=== PATIENT | male | born 1950 | race Caucasian/White ===

== ENCOUNTER 2018-08-22 15:34 | Inpatient (IN) | payer MEDICARE ==
[~2018-08-22] VITALS: Ht 177.8 cm; Wt 70.9 kg
[2018-08-22] MEDS ORDERED: IPRATRPIUM/ALBUTEROL 0.5/2.5MG 3 ML NEBU. NEB ONE (16:15)
--- NOTE | 2018-08-22 16:18 | PHYS DOC ---
Past Medical History Additional Past Medical Histor: prior history of alcoholism, no other known medical history. Smoking: Cigarettes, 1 Pack Per Day, Quit Less Than 1 Year Adult General Chief Complaint Chief Complaint: SHORTNESS OF BREATH HPI HPI Patient is a 68-year-old male who presents to the emergency department for evaluation. He states he quit smoking about 3-1/2 months ago, and since that time has had progressive shortness of breath, along with a productive cough, occasionally productive of bloody sputum. He reports no chest pain, pleuritic pain, fevers or chills. He has not had any nausea, or vomiting. There are no alleviating, or exacerbating factors to the patient's symptoms otherwise. Review of Systems Review of Systems Constitutional: Denies fever or chills [] Eyes: Denies change in visual acuity, redness, or eye pain [] HENT: Denies nasal congestion or sore throat [] Respiratory: Reports cough and shortness of breath [] Cardiovascular:The patient denies any chest pain, palpitations, or orthopnea [] GI: Denies abdominal pain, nausea, vomiting, bloody stools or diarrhea [] : Denies dysuria or hematuria [] Musculoskeletal: Denies back pain or joint pain [] Integument: Denies rash or skin lesions [] Neurologic: Denies headache, focal weakness or sensory changes [] Endocrine: Denies polyuria or polydipsia [] All other systems were reviewed and found to be within normal limits, except as documented in this note. Current Medications Current Medications Current Medications Medications (Trade) Dose Ordered Sig/Dustin Start Time Stop Time Status Last Admin Dose Admin Albuterol/ Ipratropium (Duoneb) 3 ml 1X ONCE 08/22/18 16:15 08/22/18 16:21 DC 08/22/18 16:18 3 ML Info (CONTRAST GIVEN -- Rx MONITORING) 1 each PRN DAILY PRN 08/22/18 17:00 08/24/18 16:59 Iohexol (Omnipaque 350 Mg/ml) 75 ml 1X ONCE 08/22/18 16:45 08/22/18 16:48 DC 08/22/18 16:59 75 ML Piperacillin Sod/ Tazobactam Sod (Zosyn Per Pharmacy) 1 each PRN DAILY PRN 08/22/18 18:00 UNV Sodium Chloride 1,000 ml @ 1,000 mls/hr Q1H 08/22/18 16:30 08/22/18 17:29 DC 08/22/18 16:43 1,000 MLS/HR Vancomycin HCl (Vanco Per Pharmacy) 1 each PRN DAILY PRN 08/22/18 18:00 UNV Allergies Allergies Allergies Coded Allergies Type Severity Reaction Last Updated Verified No Known Drug Allergies 08/22/18 No Physical Exam Physical Exam PHYSICAL EXAM: CONSTITUTIONAL: Well developed, well nourished HEAD: normocephalic, atraumatic EENT: PERRL, EOMI. Conjunctivae normal color, sclerae non-icteric; moist mucous membranes. NECK: Supple, non-tender; no meningismus. LUNGS: there are diffuse coarse except for wheezes and rhonchi in all lung roldan, breathing even and unlabored. Normal air movement. HEART: Mild tachycardia, regular, no murmur CHEST: No deformity; non-tender ABDOMEN: The abdomen is soft, and non-tender, no masses or bruits. EXTREM: Normal ROM; no deformity, no calf tenderness. Normal pulses palpable in all extremities. There is no pedal edema. SKIN: No rash; no diaphoresis NEURO: Alert; normal speech and cognition; CN's grossly intact; strength grossly intact without focal deficit. BACK: No CVA TTP. Current Patient Data Vital Signs Vital Signs Date Time Temp Pulse Resp B/P (MAP) Pulse Ox O2 Delivery O2 Flow Rate FiO2 08/22/18 16:20 93 Room Air 08/22/18 16:00 99.6 109 18 151/75 (100) 99.6 Lab Values Laboratory Tests Test 08/22/18 16:05 08/22/18 16:45 White Blood Count 14.1 x10^3/uL (4.0-11.0) H Red Blood Count 4.32 x10^6/uL (4.30-5.70) Hemoglobin 11.0 g/dL (13.0-17.5) L Hematocrit 34.4 % (39.0-53.0) L Mean Corpuscular Volume 80 fL (79-100) Mean Corpuscular Hemoglobin 26 pg (25-35) Mean Corpuscular Hemoglobin Concent 32 g/dL (31-37) Red Cell Distribution Width 15.8 % (11.5-14.5) H Platelet Count 409 x10^3/uL (140-400) H Neutrophils (%) (Auto) 83 % (31-73) H Lymphocytes (%) (Auto) 9 % (24-48) L Monocytes (%) (Auto) 7 % (0-9) Eosinophils (%) (Auto) 1 % (0-3) Basophils (%) (Auto) 1 % (0-3) Neutrophils # (Auto) 11.7 x10^3uL (1.8-7.7) H Lymphocytes # (Auto) 1.3 x10^3/uL (1.0-4.8) Monocytes # (Auto) 1.0 x10^3/uL (0.0-1.1) Eosinophils # (Auto) 0.1 x10^3/uL (0.0-0.7) Basophils # (Auto) 0.1 x10^3/uL (0.0-0.2) Sodium Level 136 mmol/L (136-145) Potassium Level 3.6 mmol/L (3.5-5.1) Chloride Level 99 mmol/L (98-107) Carbon Dioxide Level 30 mmol/L (21-32) Anion Gap 7 (6-14) Blood Urea Nitrogen 11 mg/dL (8-26) Creatinine 1.1 mg/dL (0.7-1.3) Estimated GFR (Cockcroft-Gault) 66.6 BUN/Creatinine Ratio 10 (6-20) Glucose Level 168 mg/dL (70-99) H Lactic Acid Level 2.6 mmol/L (0.4-2.0) H Calcium Level 10.5 mg/dL (8.5-10.1) H Total Bilirubin 0.3 mg/dL (0.2-1.0) Aspartate Amino Transferase (AST) 17 U/L (15-37) Alanine Aminotransferase (ALT) 19 U/L (16-63) Alkaline Phosphatase 97 U/L (46-116) Creatine Kinase 12 U/L (39-308) L Creatine Kinase MB (Mass) < 0.5 ng/mL (0.0-3.6) Creatine Kinase MB Relative Index % (0-4) Troponin I Quantitative < 0.017 ng/mL (0.000-0.055) RR-Mru-Z-Type Natriuretic Peptide 153 pg/mL (0-124) H Total Protein 8.9 g/dL (6.4-8.2) H Albumin 2.4 g/dL (3.4-5.0) L Albumin/Globulin Ratio 0.4 (1.0-1.7) L Influenza Type A Antigen Negative (NEGATIVE) Influenza Type B Antigen Negative (NEGATIVE) Laboratory Tests 08/22/18 16:05 Laboratory Tests 08/22/18 16:05 EKG EKG [Sinus tachycardia at a rate of 103 beats for minute, normal axis, normal intervals. There are no acute ischemic ST/T changes.] Radiology/Procedures Radiology/Procedures [PROCEDURE: CHEST PA & LATERAL Chest, PA and Lateral: Technique: PA and lateral views of the chest were obtained. History: Cough, shortness of breath. Comparison: None. Findings/ impression: The heart size grossly appears unremarkable. Air fluid level identified in the right upper lobe of the lung could be a cavity containing fluid or lung abscess or effusion identified along the fissure/pleura. Airspace opacities identified in the right upper lobe of the lung with patchy right lung base airspace opacities. Cross-sectional imaging with CT is recommended.] PROCEDURE: CT ANGIOGRAPHY CHEST CT angiogram of the chest with contrast: Reason for examination: Short of breath, hemoptysis, tachycardia. Helical images were obtained through the chest with intravenous administration of 75 cc Omnipaque 350 using PE protocol. 3-D MIPS reconstruction was performed in sagittal and coronal planes. Exposure: One or more of the following individualized dose reduction techniques were utilized for this examination: 1. Automated exposure control 2. Adjustment of the mA and/or kV according to patient size 3. Use of iterative reconstruction technique. No abnormality seen at the thyroid gland. The trachea and left mainstem bronchi show no abnormalities. There is some fluid or thickening in the distal right mainstem bronchus. No abnormality seen at the esophagus. The thoracic aorta shows no aneurysmal dilatation or dissection. The heart size is normal with no pericardial effusion. There are a few small nonspecific appearing lymph nodes in the mediastinum. The right lung field shows presence of diffuse patchy peribronchial infiltrates throughout the right upper middle and lower lobe. There is however also a consolidated infiltrate with central cavitation in the right upper lobe with some encroachment on and narrowing of the vascular structures in the right upper lobe in this area of consolidation. Cavitary mass cannot be excluded. This area with the central cavitation appears to measure at least 9 cm craniocaudally 10 cm transaxially and 8.3 cm in AP dimension. The left lung field is free of infiltrates or pleural effusions. No abnormalities are seen at the visualized portion of the liver, spleen or right adrenal gland. There is a hypodense rim calcified nodule measuring 3.2 cm in the left adrenal gland. There is a moderate anterior wedge compression deformity at the T12 vertebral body. IMPRESSION: Diffuse patchy peribronchial infiltrates throughout the right lung field with a large area of dense consolidation infiltrate with central cavitation in the right upper lobe measuring at least 9 x 10 x 8.3 cm in greatest cranial caudal, transaxial and AP dimensions respectively. This could be infectious cavitation however malignancy cannot be excluded. No pulmonary embolus however the area of dense consolidated infiltrate in the right upper lobe does encroach on and narrow the vascular structures in the right upper lobe. A few small nonspecific lymph nodes in the mediastinum. 3.2 cm rim calcified nodule in the left adrenal gland. Moderate anterior wedge compression deformity at the T12 vertebral body. Course & Med Decision Making Course & Med Decision Making Pertinent Labs and Imaging studies reviewed. (See chart for details) [] Dragon Disclaimer Dragon Disclaimer This electronic medical record was generated, in whole or in part, using a voice recognition dictation system. Departure Departure Impression: Primary Impression: Pneumonia Additional Impression: Cavitary lesion of lung Disposition: ADMITTED INPATIENT Admitting Physician: Marva Pineda Condition: STABLE Referrals: UNKNOWN PCP NAME (PCP) Problem Qualifiers AKHIL VEGA MD Aug 22, 2018 16:18
[2018-08-22 16:19] LABS: BASO # 0.1 x10^3/uL (0.0-0.2); BASO % 1 % (0-3); EOS # 0.1 x10^3/uL (0.0-0.7); EOS % 1 % (0-3); HEMATOCRIT 34.4 % (39.0-53.0); LYMPH # 1.3 x10^3/uL (1.0-4.8); LYMPH % 9 % (24-48); MEAN CORPUSCULAR HEMOGLOBIN 26 pg (25-35); MEAN CORPUSCULAR HGB CONC 32 g/dL (31-37); MEAN CORPUSCULAR VOLUME 80 fL (79-100); MONO % 7 % (0-9); NEUT # 11.7 x10^3uL (1.8-7.7); NEUT % 83 % (31-73); PLATELET COUNT 409 x10^3/uL (140-400); RED BLOOD COUNT 4.32 x10^6/uL (4.30-5.70); RED CELL DISTRIBUTION WIDTH 15.8 % (11.5-14.5); WHITE BLOOD COUNT 14.1 x10^3/uL (4.0-11.0)
[2018-08-22] MEDS ORDERED: IV NORMAL SALINE 1000ML BAG 1,000 ML IV SCH (16:30)
[2018-08-22 16:34] LABS: CALCIUM 10.5 mg/dL (8.5-10.1); CREATININE 1.1 mg/dL (0.7-1.3); GFR 66.6; POTASSIUM 3.6 mmol/L (3.5-5.1)
[2018-08-22 16:40] LABS: ALBUMIN 2.4 g/dL (3.4-5.0); ALBUMIN/GLOBULIN RATIO 0.4 (1.0-1.7); TOTAL BILIRUBIN 0.3 mg/dL (0.2-1.0); TOTAL PROTEIN 8.9 g/dL (6.4-8.2)
[2018-08-22] MEDS ORDERED: IOHEXOL 350 MG/ML 100 ML VIAL. IV ONE (16:45)
--- NOTE | 2018-08-22 16:49 | RAD ---
Chest, PA and Lateral: Technique: PA and lateral views of the chest were obtained. History: Cough, shortness of breath. Comparison: None. Findings/ impression: The heart size grossly appears unremarkable. Air fluid level identified in the right upper lobe of the lung could be a cavity containing fluid or lung abscess or effusion identified along the fissure/pleura. Airspace opacities identified in the right upper lobe of the lung with patchy right lung base airspace opacities. Cross-sectional imaging with CT is recommended. Electronically signed by: Mike Isaac MD (08/22/2018 4:47 PM) [facility]
[2018-08-22 16:55] LABS: CREATINE KINASE 12 U/L (39-308)
[2018-08-22] MEDS ORDERED: ACETAMINOPHEN 325 MG TABLET. PO PRN (17:00)
[2018-08-22] MEDS ORDERED: CONTRAST GIVEN. MC PRN (17:00)
[2018-08-22 17:19] LABS: INFLUENZA A PATIENT NEGATIVE (NEGATIVE); INFLUENZA B PATIENT NEGATIVE (NEGATIVE)
--- NOTE | 2018-08-22 17:51 | RAD ---
CT angiogram of the chest with contrast: Reason for examination: Short of breath, hemoptysis, tachycardia. Helical images were obtained through the chest with intravenous administration of 75 cc Omnipaque 350 using PE protocol. 3-D MIPS reconstruction was performed in sagittal and coronal planes. Exposure: One or more of the following individualized dose reduction techniques were utilized for this examination: 1. Automated exposure control 2. Adjustment of the mA and/or kV according to patient size 3. Use of iterative reconstruction technique. No abnormality seen at the thyroid gland. The trachea and left mainstem bronchi show no abnormalities. There is some fluid or thickening in the distal right mainstem bronchus. No abnormality seen at the esophagus. The thoracic aorta shows no aneurysmal dilatation or dissection. The heart size is normal with no pericardial effusion. There are a few small nonspecific appearing lymph nodes in the mediastinum. The right lung field shows presence of diffuse patchy peribronchial infiltrates throughout the right upper middle and lower lobe. There is however also a consolidated infiltrate with central cavitation in the right upper lobe with some encroachment on and narrowing of the vascular structures in the right upper lobe in this area of consolidation. Cavitary mass cannot be excluded. This area with the central cavitation appears to measure at least 9 cm craniocaudally 10 cm transaxially and 8.3 cm in AP dimension. The left lung field is free of infiltrates or pleural effusions. No abnormalities are seen at the visualized portion of the liver, spleen or right adrenal gland. There is a hypodense rim calcified nodule measuring 3.2 cm in the left adrenal gland. There is a moderate anterior wedge compression deformity at the T12 vertebral body. IMPRESSION: Diffuse patchy peribronchial infiltrates throughout the right lung field with a large area of dense consolidation infiltrate with central cavitation in the right upper lobe measuring at least 9 x 10 x 8.3 cm in greatest cranial caudal, transaxial and AP dimensions respectively. This could be infectious cavitation however malignancy cannot be excluded. No pulmonary embolus however the area of dense consolidated infiltrate in the right upper lobe does encroach on and narrow the vascular structures in the right upper lobe. A few small nonspecific lymph nodes in the mediastinum. 3.2 cm rim calcified nodule in the left adrenal gland. Moderate anterior wedge compression deformity at the T12 vertebral body. Electronically signed by: Razia Solis MD (08/22/2018 5:48 PM) [place] [id number]
[2018-08-22] MEDS ORDERED: PIP/TAZO PER PHARMACY MC PRN (18:00)
[2018-08-22] MEDS: PIPERACILLIN/TAZOBACTAM 3.375 GM in IV NORMAL SALINE 50ML 50 ML IV SCH ×2 (18:11→23:25)
[2018-08-22] MEDS ORDERED: VANCOMYCIN 1.75 GM in IV NORMAL SALINE 500ML BAG 500 ML IV ONE (18:30)
[2018-08-22] MEDS ORDERED: ONDANSETRON ODT 4 MG TAB.RAPDIS. PO PRN (18:45)
[2018-08-22] MEDS ORDERED: ONDANSETRON PF 4 MG/2 ML VIAL. IV PRN (18:45)
[2018-08-22] MEDS ORDERED: ACETAMINOPHEN/CODEINE 300/30MG TABLET. PO PRN (18:45)
[2018-08-22] MEDS ORDERED: TEMAZEPAM 7.5 MG CAPSULE PO PRN (18:45)
[2018-08-22] MEDS ORDERED: guaiFENesin DM 200MG/20MG 10 ML SYRUP PO PRN (18:45)
[2018-08-22] MEDS ORDERED: IV NORMAL SALINE 1000ML BAG 1,000 ML IV ONE ×2 (19:00→21:00)
[2018-08-22] MEDS ORDERED: NICOTINE 21MG PATCH. TD PRN (19:15)
[2018-08-22] MEDS ORDERED: ACETAMINOPHEN 325 MG TABLET. PO ONE (19:30)
[2018-08-22] MEDS: VANCOMYCIN PER PHARMACY MC PRN (20:49)
--- NOTE | 2018-08-22 20:54 | NUR ---
Pharmacy Vancomycin Dosing Note S: Consulted to monitor and dose vancomycin started 08/22/18. O: EMILIA CHAVIS is a 68 year old M with CAP, CAVITARY PNEUMONIA. Other Antibiotics: ZOSYN LABS: Last BUN: 11 Last Creatinine: 1.1 Creatinine Clearance: 66 mL/min Last WBC: 14.1 Tmax (past 24 hours): 99.6 Vancomycin Dosing: Dosing Weight: Actual Target Trough: 15-20 A: Based on: VANCO dosing guidelines P: 1. Begin Vancomycin 1750mg LOAD dose, then 1250 mg IV q12h 2. Follow up Trough level on 08/24/18 at 0730 3. Pharmacy will continue to monitor, follow and adjust therapy as needed. ZHANG CRANE [facility], 08/22/18 [id number]
[2018-08-22] MEDS: IPRATRPIUM/ALBUTEROL 0.5/2.5MG 3 ML NEBU. NEB SCH ×2 (21:23→23:56)
[2018-08-22 23:00] VITALS: BP 124/59
[2018-08-23 03:00] VITALS: BP 136/55
[2018-08-23] MEDS: PIPERACILLIN/TAZOBACTAM 3.375 GM in IV NORMAL SALINE 50ML 50 ML IV SCH ×2 (05:50→14:19)
[2018-08-23 07:00] VITALS: BP 112/54
--- NOTE | 2018-08-23 07:06 | EKG ---
[facility] [address] [place] [id number] Test Date: 2018-08-22 Test Time: 16:05:52 Pat Name: EMILIA CHAVIS Department: Room: 516 1 Gender: M [employer]: : 1950 Requested By: AKHIL VEGA Order Number: [id number] Reading MD: Stone Ryan MD Measurements Intervals [place] Rate: 103 P: 40 MI: 150 QRS: -42 QRSD: 78 T: 30 QT: 332 QTc: 436 Interpretive Statements SINUS TACHYCARDIA NON-SPECIFIC ST/T CHANGES Electronically Signed On 08-26-2018 15:52:37 CDT by Stone Ryan MD
[2018-08-23] MEDS: IPRATRPIUM/ALBUTEROL 0.5/2.5MG 3 ML NEBU. NEB SCH ×4 (07:24→23:38)
--- NOTE | 2018-08-23 07:42 | PDOC1 ---
History and Physical Date of Admission Date of Admission DATE: 08/23/18 TIME: 07:39 Identification/Chief Complaint Chief Complaint Shortness of breath Source Source: Chart review, Patient History of Present Illness History of Present Illness 68-year-old male who presents to the emergency department for evaluation. He states he quit smoking about 3-1/2 months ago, and since that time has had progressive shortness of breath, along with a productive cough, occasionally productive of bloody sputum. He reports no chest pain, pleuritic pain, fevers or chills. He has not had any nausea, or vomiting. There are no alleviating, or exacerbating factors to the patient's symptoms otherwise. He has lost about 50-60 pounds in the last 3 months or so, he says and now c/o worsening of his hemoptysis, so he decided to come to the ED. He denies any headache, visual symptoms, chest pain, abdominal pain, urinary symptoms. He has no recent sick contacts and has no history of incarceration or TB. He was noted in the ED with Hb 9, WBC of 14, elevated procalcitonin and CT chest with cavitary pneumonia in the right upper lobe and extensive parenchymal infiltrate in the right lower lobe. Past Medical History Cardiovascular: No pertinent hx Pulmonary: No pertinent hx GI: No pertinent hx Heme/Onc: No pertinent hx Hepatobiliary: No pertinent hx Psych: No pertinent hx Rheumatologic: No pertinent hx Infectious disease: No pertinent hx ENT: No pertinent hx Renal/: No pertinent hx Endocrine: No pertinent hx Dermatology: No pertinent hx Past Surgical History Past Surgical History: No pertinent history Family History Family History: Heart Disease Social History Smoke: Quit (Positive for smoking until 3 months ago. He had a 51-year history of smoking. He used to be a significant drinking problem, which he had quit 1 year ago. No drug use. The patient has not been out of country other than when he was very young in the , he had gone to [place]. The patient has never been homeless, very short period in group home with DUI.) ALCOHOL: none Drugs: None Current Problem List Problem List Problems Medical Problems: (1) Cavitary lesion of lung Status: Acute (2) Pneumonia Status: Acute Current Medications Current Medications Current Medications Albuterol/ Ipratropium (Duoneb) 3 ml 1X ONCE NEB Last administered on at 16:18; Start 08/22/18 at 16:15; Stop 08/22/18 at 16:21; Status DC Sodium Chloride 1,000 ml @ 1,000 mls/hr Q1H IV Last administered on 08/22/18at 16:43; Start 08/22/18 at 16:30; Stop 08/22/18 at 17:29; Status DC Iohexol (Omnipaque 350 Mg/ml) 75 ml 1X ONCE IV Last administered on 08/22/18at 16:59; Start 08/22/18 at 16:45; Stop 08/22/18 at 16:48; Status DC Info (CONTRAST GIVEN -- Rx MONITORING) 1 each PRN DAILY PRN MC SEE COMMENTS; Start 08/22/18 at 17:00; Stop 08/24/18 at 16:59 Piperacillin Sod/ Tazobactam Sod (Zosyn Per Pharmacy) 1 each PRN DAILY PRN MC SEE COMMENTS; Start 08/22/18 at 18:00 Vancomycin HCl (Vanco Per Pharmacy) 1 each PRN DAILY PRN MC SEE COMMENTS Last administered on 08/22/18at 20:49; Start 08/22/18 at 18:00 Albuterol/ Ipratropium (Duoneb) 3 ml Q6HRS NEB Last administered on 08/23/18at 07:24; Start 08/22/18 at 18:00 Piperacillin Sod/ Tazobactam Sod 3.375 gm/Sodium Chloride 50 ml @ 100 mls/hr Q6HRS IV Last administered on 08/23/18at 05:50; Start 08/22/18 at 18:00 Vancomycin HCl 1.75 gm/Sodium Chloride 500 ml @ 250 mls/hr 1X ONCE IV Last administered on 08/22/18at 19:46; Start 08/22/18 at 18:30; Stop 08/22/18 at 20:29 ; Status DC Acetaminophen (Tylenol) 500 mg PRN Q6HRS PRN PO MILD PAIN / TEMP; Start at 18:45 Acetaminophen/ Codeine Phosphate (Tylenol #3) 1 tab PRN Q6HRS PRN PO MODERATE TO SEVERE PAIN; Start 08/22/18 at 18:45 Ondansetron HCl (Zofran) 4 mg PRN Q6HRS PRN IV NAUSEA/VOMITING; Start 08/22/18 at 18:45 Ondansetron HCl (Zofran Odt) 4 mg PRN Q6HRS PRN PO NAUSEA/VOMITING; Start 08/22 at 18:45 Temazepam (Restoril) 7.5 mg PRN QHS PRN PO INSOMNIA; Start 08/22/18 at 18:45 Sodium Chloride 1,000 ml @ 100 mls/hr 1X ONCE IV Last administered on at 22:38; Start 08/22/18 at 19:00; Stop 08/23/18 at 04:59; Status DC Guaifenesin (Robitussin Dm) 10 ml PRN Q6HRS PRN PO COUGH; Start 08/22/18 at 18: 45 Acetaminophen (Tylenol) 650 mg PRN Q6HRS PRN PO MILD PAIN / TEMP; Start at 17:00; Status UNV Nicotine (Nicoderm Cq 21mg) 1 patch PRN DAILY PRN TD SMOKING CESSATION; Start 08/22/18 at 19:15 Acetaminophen (Tylenol) 650 mg 1X ONCE PO Last administered on 08/22/18at 17:00 ; Start 08/22/18 at 19:30; Stop 08/22/18 at 19:31; Status DC Sodium Chloride 1,000 ml @ 1,000 mls/hr 1X ONCE IV Last administered on at 22:39; Start 08/22/18 at 21:00; Stop 08/22/18 at 21:59; Status DC Vancomycin HCl 1.25 gm/Sodium Chloride 250 ml @ 167 mls/hr Q12H IV ; Start at 08:00 Vancomycin HCl (Vancomycin Trough Level) 1 each 1X ONCE MC ; Start 08/24/18 at 07:30; Stop 08/24/18 at 07:31 Allergies Allergies: Coded Allergies: No Known Drug Allergies (Unverified , 08/22/18) ROS General: YES: Fatigue, Malaise; No: Chills, Night Sweats, Appetite, Other PSYCHOLOGICAL ROS: No: Anxiety, Behavioral Disorder, Concentration difficultie , Decreased libido, Depression, Disorientation, Hallucinations, Hostility, Irritablity, Memory difficulties, Mood Swings, Obsessive thoughts, Physical abuse, Sexual abuse, Sleep disturbances, Suicidal ideation, Other Eyes: No Blurry vision, No Decreased vision, No Double vision, No Dry eyes, No Excessive tearing, No Eye Pain, No Itchy Eyes, No Loss of vision, No Photophobia , No Scotomata, No Uses contacts, No Uses glasses, No Other HEENT: No: Heacaches, Visual Changes, Hearing change, Nasal congestion, Nasal discharge, Oral lesions, Sinus pain, Sore Throat, Epistaxis, Sneezing, Snoring, Tinnitus, Vertigo, Vocal changes, Other ALLERGY AND IMMUNOLOGY: No: Hives, Insect Bite Sensitivity, Itchy/Watery Eyes, Nasal Congestion, Post Nasal Drip, Seasonal Allergies, Other Hematological and Lymphatic: No: Bleeding Problems, Blood Clots, Blood Transfusions, Brusing, Night Sweats, Pallor, Swollen Lymph Nodes, Other ENDOCRINE: No: Breast Changes, Galactorrhea, Hair Pattern Changes, Hot Flashes , Malaise/lethargy, Mood Swings, Palpitations, Polydipsia/polyuria, Skin Changes , Temperature Intolerance, Unexpected Weight Changes, Other Breast: No New/Changing Breast Lumps, No Nipple changes, No Nipple discharge, No Other Respiratory: YES: Cough, Hemoptysis, Shortness of breath, SOB with excertion, Sputum Changes, Tachypnea, Wheezing; No: Orthopnea, Pleuritic Pain, Stridor, Other Cardiovascular: No Chest Pain, No Palpitations, No Orthopnea, No Paroxysmal Noc. Dyspnea, No Edema, No Lt Headedness, No Other Gastrointestinal: No Nausea, No Vomiting, No Abdominal Pain, No Diarrhea, No Constipation, No Melena, No Hematochezia, No Other Genitourinary: No Dysuria, No Frequency, No Incontinence, No Hematuria, No Retention, No Discharge, No Urgency, No Pain, No Flank Pain, No Other, No , No , No , No , No , No , No Musculoskeletal: No Gait Disturbance, No Joint Pain, No Joint Stiffness, No Joint Swelling, No Muscle Pain, No Muscular Weakness, No Pain In:, No Swelling In:, No Other Neurological: No Behavorial Changes, No Bowel/Bladder ControlChng, No Confusion , No Dizziness, No Gait Disturbance, No Headaches, No Impaired Coord/balance, No Memory Loss, No Numbness/Tingling, No Seizures, No Speech Problems, No Tremors, No Visual Changes, No Weakness, No Other Skin: No Dry Skin, No Eczema, No Hair Changes, No Lumps, No Mole Changes, No Mottling, No Nail Changes, No Pruritus, No Rash, No Skin Lesion Changes, No Other, No Acne Physical Exam General: Alert, Oriented X3, Cooperative, No acute distress HEENT: Atraumatic, PERRLA, EOMI, Mucous membr. moist/pink Lungs: Other (Bilateral scattered wheezing, rhonchi on right) Abdomen: Normal bowel sounds, Soft, No tenderness, No hepatosplenomegaly, No masses Male Genitals Exam: normal genitalia Rectal Exam: not examined Extremities: No clubbing, No cyanosis, No edema, Normal pulses, No tenderness/ swelling Skin: No rashes, No breakdown, No significant lesion Neuro: Normal gait, Normal speech, Strength at 5/5 X4 ext, Normal tone, Sensation intact, Cranial nerves 3-12 NL, Reflexes 2+ Psych/Mental Status: Mental status NL, Mood NL Vitals Vitals Vital Signs Date Time Temp Pulse Resp B/P (MAP) Pulse Ox O2 Delivery O2 Flow Rate FiO2 08/23/18 07:26 94 Room Air 08/23/18 03:00 98.4 68 18 136/55 (82) 98.4 Labs Labs Laboratory Tests Test 08/22/18 16:05 08/22/18 16:45 White Blood Count 14.1 x10^3/uL (4.0-11.0) Red Blood Count 4.32 x10^6/uL (4.30-5.70) Hemoglobin 11.0 g/dL (13.0-17.5) Hematocrit 34.4 % (39.0-53.0) Mean Corpuscular Volume 80 fL (79-100) Mean Corpuscular Hemoglobin 26 pg (25-35) Mean Corpuscular Hemoglobin Concent 32 g/dL (31-37) Red Cell Distribution Width 15.8 % (11.5-14.5) Platelet Count 409 x10^3/uL (140-400) Neutrophils (%) (Auto) 83 % (31-73) Lymphocytes (%) (Auto) 9 % (24-48) Monocytes (%) (Auto) 7 % (0-9) Eosinophils (%) (Auto) 1 % (0-3) Basophils (%) (Auto) 1 % (0-3) Neutrophils # (Auto) 11.7 x10^3uL (1.8-7.7) Lymphocytes # (Auto) 1.3 x10^3/uL (1.0-4.8) Monocytes # (Auto) 1.0 x10^3/uL (0.0-1.1) Eosinophils # (Auto) 0.1 x10^3/uL (0.0-0.7) Basophils # (Auto) 0.1 x10^3/uL (0.0-0.2) Sodium Level 136 mmol/L (136-145) Potassium Level 3.6 mmol/L (3.5-5.1) Chloride Level 99 mmol/L (98-107) Carbon Dioxide Level 30 mmol/L (21-32) Anion Gap 7 (6-14) Blood Urea Nitrogen 11 mg/dL (8-26) Creatinine 1.1 mg/dL (0.7-1.3) Estimated GFR (Cockcroft-Gault) 66.6 BUN/Creatinine Ratio 10 (6-20) Glucose Level 168 mg/dL (70-99) Lactic Acid Level 2.6 mmol/L (0.4-2.0) Calcium Level 10.5 mg/dL (8.5-10.1) Total Bilirubin 0.3 mg/dL (0.2-1.0) Aspartate Amino Transf (AST/SGOT) 17 U/L (15-37) Alanine Aminotransferase (ALT/SGPT) 19 U/L (16-63) Alkaline Phosphatase 97 U/L (46-116) Creatine Kinase 12 U/L (39-308) Creatine Kinase MB (Mass) < 0.5 ng/mL (0.0-3.6) Creatine Kinase MB Relative Index % (0-4) Troponin I Quantitative < 0.017 ng/mL (0.000-0.055) YF-Muh-R-Type Natriuretic Peptide 153 pg/mL (0-124) Total Protein 8.9 g/dL (6.4-8.2) Albumin 2.4 g/dL (3.4-5.0) Albumin/Globulin Ratio 0.4 (1.0-1.7) Influenza Type A Antigen Negative (NEGATIVE) Influenza Type B Antigen Negative (NEGATIVE) Laboratory Tests Test 08/22/18 16:05 08/22/18 16:45 White Blood Count 14.1 x10^3/uL (4.0-11.0) Red Blood Count 4.32 x10^6/uL (4.30-5.70) Hemoglobin 11.0 g/dL (13.0-17.5) Hematocrit 34.4 % (39.0-53.0) Mean Corpuscular Volume 80 fL (79-100) Mean Corpuscular Hemoglobin 26 pg (25-35) Mean Corpuscular Hemoglobin Concent 32 g/dL (31-37) Red Cell Distribution Width 15.8 % (11.5-14.5) Platelet Count 409 x10^3/uL (140-400) Neutrophils (%) (Auto) 83 % (31-73) Lymphocytes (%) (Auto) 9 % (24-48) Monocytes (%) (Auto) 7 % (0-9) Eosinophils (%) (Auto) 1 % (0-3) Basophils (%) (Auto) 1 % (0-3) Neutrophils # (Auto) 11.7 x10^3uL (1.8-7.7) Lymphocytes # (Auto) 1.3 x10^3/uL (1.0-4.8) Monocytes # (Auto) 1.0 x10^3/uL (0.0-1.1) Eosinophils # (Auto) 0.1 x10^3/uL (0.0-0.7) Basophils # (Auto) 0.1 x10^3/uL (0.0-0.2) Sodium Level 136 mmol/L (136-145) Potassium Level 3.6 mmol/L (3.5-5.1) Chloride Level 99 mmol/L (98-107) Carbon Dioxide Level 30 mmol/L (21-32) Anion Gap 7 (6-14) Blood Urea Nitrogen 11 mg/dL (8-26) Creatinine 1.1 mg/dL (0.7-1.3) Estimated GFR (Cockcroft-Gault) 66.6 BUN/Creatinine Ratio 10 (6-20) Glucose Level 168 mg/dL (70-99) Lactic Acid Level 2.6 mmol/L (0.4-2.0) Calcium Level 10.5 mg/dL (8.5-10.1) Total Bilirubin 0.3 mg/dL (0.2-1.0) Aspartate Amino Transf (AST/SGOT) 17 U/L (15-37) Alanine Aminotransferase (ALT/SGPT) 19 U/L (16-63) Alkaline Phosphatase 97 U/L (46-116) Creatine Kinase 12 U/L (39-308) Creatine Kinase MB (Mass) < 0.5 ng/mL (0.0-3.6) Creatine Kinase MB Relative Index % (0-4) Troponin I Quantitative < 0.017 ng/mL (0.000-0.055) GK-Bic-I-Type Natriuretic Peptide 153 pg/mL (0-124) Total Protein 8.9 g/dL (6.4-8.2) Albumin 2.4 g/dL (3.4-5.0) Albumin/Globulin Ratio 0.4 (1.0-1.7) Influenza Type A Antigen Negative (NEGATIVE) Influenza Type B Antigen Negative (NEGATIVE) Images Images CTPA - Diffuse patchy peribronchial infiltrates throughout the right lung field with a large area of dense consolidation infiltrate with central cavitation in the right upper lobe measuring at least 9 x 10 x 8.3 cm in greatest cranial caudal, transaxial and AP dimensions respectively. This could be infectious cavitation however malignancy cannot be excluded. No pulmonary embolus however the area of dense consolidated infiltrate in the right upper lobe does encroach on and narrow the vascular structures in the right upper lobe. A few small nonspecific lymph nodes in the mediastinum. 3.2 cm rim calcified nodule in the left adrenal gland. Moderate anterior wedge compression deformity at the T12 vertebral body. CXR - The heart size grossly appears unremarkable. Air fluid level identified in the right upper lobe of the lung could be a cavity containing fluid or lung abscess or effusion identified along the fissure/pleura. Airspace opacities identified in the right upper lobe of the lung with patchy right lung base airspace opacities. Cross-sectional imaging with CT is recommended. VTE Prophylaxis Ordered VTE Prophylaxis Devices: No VTE Pharmacological Prophylaxi: Yes Assessment/Plan Assessment/Plan A/P: Hemoptysis - more likely endobronchial lesion from presumptive lung cancer, will await TB rule out, though. Pulm consulted Significant unintentional weight loss - likely cancer cachexia, will await pulm recs on likely bronchoscopy vs IR guided biopsy Cavitary pneumonia in the right upper lobe - likely 2/2 lung cancer, but fungal or TB are possibilities, though less likely. Flu negative. Consulted ID Parenchymal infiltrate in the right lower lobe - likely a secondary pneumonia, will treat empirically as community acquired Likely chronic obstructive pulmonary disease - likely is severe. Nebs Anemia - likely of a subacute/chronic disease. Check iron studies FEN - General diet, NPO after midnight PPX - SCDs, though will give lovenox after procedure, he is likely a new cancer patient FULL CODE Inpatient for community acquired pneumonia likely complicated by an underlying malignancy., PHILIPPE MORFIN MD Aug 23, 2018 07:42
[2018-08-23] MEDS: VANCOMYCIN 1.25 GM in IV NORMAL SALINE 250ML 250 ML IV SCH ×2 (09:06→19:49)
--- NOTE | 2018-08-23 09:37 | PDOC ---
Infectious Disease Note Vital Sign Vital Signs Vital Signs Date Time Temp Pulse Resp B/P (MAP) Pulse Ox O2 Delivery O2 Flow Rate FiO2 08/23/18 07:26 94 Room Air 08/23/18 07:00 98.9 74 16 112/54 (73) 98.9 Labs Lab Laboratory Tests Test 08/22/18 16:05 08/22/18 16:45 White Blood Count 14.1 x10^3/uL (4.0-11.0) Red Blood Count 4.32 x10^6/uL (4.30-5.70) Hemoglobin 11.0 g/dL (13.0-17.5) Hematocrit 34.4 % (39.0-53.0) Mean Corpuscular Volume 80 fL (79-100) Mean Corpuscular Hemoglobin 26 pg (25-35) Mean Corpuscular Hemoglobin Concent 32 g/dL (31-37) Red Cell Distribution Width 15.8 % (11.5-14.5) Platelet Count 409 x10^3/uL (140-400) Neutrophils (%) (Auto) 83 % (31-73) Lymphocytes (%) (Auto) 9 % (24-48) Monocytes (%) (Auto) 7 % (0-9) Eosinophils (%) (Auto) 1 % (0-3) Basophils (%) (Auto) 1 % (0-3) Neutrophils # (Auto) 11.7 x10^3uL (1.8-7.7) Lymphocytes # (Auto) 1.3 x10^3/uL (1.0-4.8) Monocytes # (Auto) 1.0 x10^3/uL (0.0-1.1) Eosinophils # (Auto) 0.1 x10^3/uL (0.0-0.7) Basophils # (Auto) 0.1 x10^3/uL (0.0-0.2) Sodium Level 136 mmol/L (136-145) Potassium Level 3.6 mmol/L (3.5-5.1) Chloride Level 99 mmol/L (98-107) Carbon Dioxide Level 30 mmol/L (21-32) Anion Gap 7 (6-14) Blood Urea Nitrogen 11 mg/dL (8-26) Creatinine 1.1 mg/dL (0.7-1.3) Estimated GFR (Cockcroft-Gault) 66.6 BUN/Creatinine Ratio 10 (6-20) Glucose Level 168 mg/dL (70-99) Lactic Acid Level 2.6 mmol/L (0.4-2.0) Calcium Level 10.5 mg/dL (8.5-10.1) Total Bilirubin 0.3 mg/dL (0.2-1.0) Aspartate Amino Transf (AST/SGOT) 17 U/L (15-37) Alanine Aminotransferase (ALT/SGPT) 19 U/L (16-63) Alkaline Phosphatase 97 U/L (46-116) Creatine Kinase 12 U/L (39-308) Creatine Kinase MB (Mass) < 0.5 ng/mL (0.0-3.6) Creatine Kinase MB Relative Index % (0-4) Troponin I Quantitative < 0.017 ng/mL (0.000-0.055) UR-Xwi-E-Type Natriuretic Peptide 153 pg/mL (0-124) Total Protein 8.9 g/dL (6.4-8.2) Albumin 2.4 g/dL (3.4-5.0) Albumin/Globulin Ratio 0.4 (1.0-1.7) Influenza Type A Antigen Negative (NEGATIVE) Influenza Type B Antigen Negative (NEGATIVE) Objective Assessment Cavitary pneumonia Wt loss Hemoptysis Smoking Plan Plan of Care bronch vanc and zosyn check cultures AUGUSTA INFANTE MD Aug 23, 2018 09:37
[2018-08-23 09:49] LABS: BASO % 0 % (0-3); EOS # 0.1 x10^3/uL (0.0-0.7); EOS % 1 % (0-3); LYMPH # 1.3 x10^3/uL (1.0-4.8); LYMPH % 13 % (24-48); MEAN CORPUSCULAR HEMOGLOBIN 26 pg (25-35); MEAN CORPUSCULAR HGB CONC 32 g/dL (31-37); MEAN CORPUSCULAR VOLUME 81 fL (79-100); MONO # 0.9 x10^3/uL (0.0-1.1); MONO % 9 % (0-9); NEUT # 7.5 x10^3uL (1.8-7.7); NEUT % 77 % (31-73); PLATELET COUNT 311 x10^3/uL (140-400); RED BLOOD COUNT 3.47 x10^6/uL (4.30-5.70); RED CELL DISTRIBUTION WIDTH 15.7 % (11.5-14.5); WHITE BLOOD COUNT 9.8 x10^3/uL (4.0-11.0)
[2018-08-23 10:24] LABS: CALCIUM 9.5 mg/dL (8.5-10.1); CREATININE 0.9 mg/dL (0.7-1.3); GFR 83.9; POTASSIUM 3.3 mmol/L (3.5-5.1)
[2018-08-23 11:00] VITALS: BP 110/54
--- NOTE | 2018-08-23 11:10 | CONS ---
DATE OF CONSULTATION: PULMONARY CONSULTATION ATTENDING PHYSICIAN: Dr. Pineda. REASON FOR CONSULTATION: Abnormal CT chest, hemoptysis. HISTORY OF PRESENT ILLNESS: The patient is a 68-year-old male who smoked for 51 years, up to 3 packs per day. He quit 5 months ago. The patient was brought into the hospital with several weeks of hemoptysis. He also had some cough with yellow sputum production. He had occasional shortness of breath. No chest pain. No fever, no chills, no night sweats. He has lost about 35 pounds in the last 3-4 months. No headaches, but has some lightheadedness. No nausea or vomiting, no diarrhea. A CT chest was reviewed by me. The patient has diffuse infiltrates throughout the right lung field with cavitary consolidation in the right upper lobe area and extensive parenchymal infiltrates in the right lower lobe. There is significant narrowing of the right upper lobe bronchus, suggesting an endobronchial obstruction. The patient has also some left adrenal gland enlargement as well. I have been asked to see him for further evaluation. PAST MEDICAL HISTORY: Suspect severe COPD, 51 years of tobacco use. PAST SURGICAL HISTORY: No recent surgery. ALLERGIES: None. CURRENT MEDICATIONS: Reviewed as listed in the [facility], including broad-spectrum antibiotic, vancomycin and Zosyn. REVIEW OF SYSTEMS: Twelve-point system was obtained. Pertinent positives discussed in my history of present illness, otherwise noncontributory. All systems that were negative were reviewed as well. SOCIAL HISTORY: He smoked for 51 years, quit 5 months ago, smoked up to 3 packs a day. FAMILY HISTORY: Noncontributory to lungs. PHYSICAL EXAMINATION: VITAL SIGNS: Reviewed. NECK: Supple. LUNGS: Clear on the left and diminished on the right. No wheezing. CARDIOVASCULAR EXAMINATION: Regular rate and rhythm. ABDOMEN: Soft, nontender. EXTREMITIES: With no pitting edema. LABORATORY DATA: Labs were reviewed. White cell count was 14.1, now 9.8; hemoglobin 9.0 and platelets are 311,000. Influenza screen negative. BUN and creatinine normal. Procalcitonin 0.16. IMPRESSION: 1. A 68-year-old with hemoptysis, 35-pound weight loss and highly abnormal CT chest with cavitary pneumonia in the right upper lobe and extensive parenchymal infiltrate in the right lower lobe. He most likely has post-obstructive pneumonia and suspected lung cancer causing endobronchial obstruction in the right upper lobe. He has significant narrowing of the right upper lobe bronchus. 2. Suspect underlying chronic obstructive pulmonary disease, could be severe. He smoked for 51 years. 3. A 35-pound weight loss, likely malignancy and unlikely tuberculosis. RECOMMENDATIONS: 1. Discussed with the patient his abnormal CT chest findings and need for bronchoscopy; he agrees. All risk and benefits were explained. We will schedule it tomorrow. 2. Continue present antibiotics. 3. The patient is kept under isolation for TB. Clinically, I have very low suspicion for that and once AFB smear is negative, isolation can be discontinued. 4. Once malignancy is confirmed, I would consult medication, Radiation Oncology. 5. PFTs at some point when he is more stable. 6. Continue bronchodilators. 7. Discussed with Dr. Mills and Dr. Lamine Hu and we will follow along with you. ANKIT BONILLA MD DR: TOSIN/alice JOB#: [id number] / [id number] RUEL
[2018-08-23 11:41] LABS: PROTHROMBIN TIME PATIENT 16.4 SEC (11.7-14.0)
[2018-08-23 15:00] VITALS: BP 118/62
[2018-08-23] MEDS ORDERED: POTASSIUM CHLORIDE 20 MEQ TABLET.ER. PO ONE (16:00)
--- NOTE | 2018-08-23 16:03 | CONS ---
DATE OF CONSULTATION: 08/23/2018 REQUESTING PHYSICIAN: Dr. Mills. REASON FOR CONSULTATION: Cavitary pneumonia. HISTORY OF PRESENT ILLNESS: This is a 68-year-old gentleman with no significant past medical history who quit smoking about 3 months ago. The patient says after that, he gotten actually started having more cough, shortness of breath progressively gotten worse. Hence, he decided to come in. The patient denied any fever, chills, night sweats. The patient has lost about 50-60 pounds in the last 3 months or so, he says. The patient denies any nausea, vomiting, diarrhea. Denies any headache, visual symptoms, chest pain, abdominal pain, urinary symptoms. PAST MEDICAL HISTORY: Essentially unremarkable as he does not go to the doctor regularly, last admission in the hospital was in 60s, he says. SOCIAL HISTORY: Positive for smoking until 3 months ago. He had a 51-year history of smoking. He used to be a significant drinking problem, which he had quit 1 year ago. No drug use. The patient has not been out of country other than when he was very young in the , he had gone to [place]. The patient has never been homeless, very short period in senior care with DUI. ALLERGIES: No known drug allergies. CURRENT MEDICATIONS: The patient is on vancomycin and Zosyn. REVIEW OF SYSTEMS: As per HPI. All other systems reviewed are negative. PHYSICAL EXAMINATION: GENERAL: Alert, oriented gentleman, not in any distress. VITAL SIGNS: Stable, afebrile. HEENT: NAD. NECK: Supple, no JVP, no lymphadenopathy. LUNGS: Clear. HEART: S1, S2 regular. ABDOMEN: Benign. EXTREMITIES: No edema or cyanosis. SKIN: Unremarkable. NEUROLOGIC: The patient is neurologically intact. LABORATORY DATA: White count is 14,000; platelets are 409,000. BUN and creatinine are normal. His lactic acid was 2.6. Influenza screen is negative. His chest CT showed diffuse patchy peribronchial infiltrate throughout the right lung field with a large area of dense consolidation with central cavitation in the right upper lobe measuring up to 9 x 10 x 8.3 cm. A few small nonspecific lymph nodes in the mediastinum and a 3.2 cm rim calcified nodule in the left adrenal gland seen. IMPRESSION: 1. Cavitary pneumonia. 2. Leukocytosis. 3. Significant weight loss. 4. Tobaccoism. The differential is lung abscess versus a cavitary malignancy versus remote possibility of tuberculosis. I would recommend do bronchoscopy and obtain all the specimens for path as well as cultures. Supportive care. Continue vancomycin and Zosyn for the time being and we will continue to follow. Thank you very much, Dr. Mills, for giving me opportunity to participate in this patient's care. AUGUSTA INFANTE MD DR: ANOMI/nts JOB#: [id number] / [id number]
[2018-08-23] MEDS: VANCOMYCIN PER PHARMACY MC PRN (16:42)
[2018-08-23 19:00] VITALS: BP 121/56
[2018-08-23] MEDS: PIPERACILLIN/TAZOBACTAM 4.5 GM in IV NORMAL SALINE 100ML 100 ML IV SCH ×2 (19:06→23:31)
[2018-08-23] MEDS: LACTOBACILLUS RHAMNOSUS GG 1 CAPSULE. PO SCH (19:48)
[2018-08-23 23:00] VITALS: BP 113/54
[2018-08-24 03:00] VITALS: BP 138/67
[2018-08-24] MEDS: PIPERACILLIN/TAZOBACTAM 4.5 GM in IV NORMAL SALINE 100ML 100 ML IV SCH ×3 (05:15→18:26)
[2018-08-24 07:00] VITALS: BP 149/65
[2018-08-24] MEDS ORDERED: IV RINGERS,LACTATED 1000ML 1,000 ML IV SCH (07:00)
[2018-08-24 07:26] LABS: BASO # 0.1 x10^3/uL (0.0-0.2); BASO % 1 % (0-3); EOS # 0.2 x10^3/uL (0.0-0.7); EOS % 2 % (0-3); HEMATOCRIT 28.7 % (39.0-53.0); LYMPH # 1.3 x10^3/uL (1.0-4.8); LYMPH % 14 % (24-48); MEAN CORPUSCULAR HEMOGLOBIN 25 pg (25-35); MEAN CORPUSCULAR HGB CONC 31 g/dL (31-37); MEAN CORPUSCULAR VOLUME 81 fL (79-100); MONO # 0.8 x10^3/uL (0.0-1.1); MONO % 9 % (0-9); NEUT # 7.2 x10^3uL (1.8-7.7); NEUT % 75 % (31-73); PLATELET COUNT 326 x10^3/uL (140-400); RED BLOOD COUNT 3.56 x10^6/uL (4.30-5.70); RED CELL DISTRIBUTION WIDTH 15.7 % (11.5-14.5); WHITE BLOOD COUNT 9.6 x10^3/uL (4.0-11.0)
[2018-08-24 07:34] LABS: PROTHROMBIN TIME PATIENT 15.5 SEC (11.7-14.0)
[2018-08-24] MEDS: IPRATRPIUM/ALBUTEROL 0.5/2.5MG 3 ML NEBU. NEB SCH ×3 (07:40→19:53)
[2018-08-24] MEDS: LACTOBACILLUS RHAMNOSUS GG 1 CAPSULE. PO SCH ×2 (08:12→20:06)
[2018-08-24 08:19] LABS: VANC TR 17.1 mcg/mL (10.0-20.0)
[2018-08-24] MEDS ORDERED: POTASSIUM CHLORIDE 20 MEQ TABLET.ER. PO ONE ×2 (08:30→19:00)
--- NOTE | 2018-08-24 08:30 | NUR ---
SW following pt for anticipated dc needs. Chart reviewed. Pt lives at home with spouse. Pt was evaluated by PT/OT and does not have skilled needs. ID currently following pt. No discharge recommendation noted at this time. SW will continue to assess dc needs.
[2018-08-24] MEDS: VANCOMYCIN PER PHARMACY MC PRN (08:46)
--- NOTE | 2018-08-24 08:48 | NUR ---
Pharmacy Vancomycin Dosing Note S: Consulted to monitor and dose vancomycin started 08/22/18. O: EMILIA CHAVIS is a 68 year old M with CAP, CAVITARY PNEUMONIA . Other Antibiotics: ZOSYN LABS: Last BUN: 7 Last Creatinine: 0.9 Creatinine Clearance: 66 mL/min Last WBC: 9.6 Last Procalcitonin: 0.16 Tmax (past 24 hours): 99.7 Microbiology: 08/23 BCX NGTD I/O: 1000/1550 Drug Levels: Last Trough level: 17.1 on 08/24/18 at 0713 Last dose given 08/23/18 at 1949 Vancomycin Dosing: Dosing Weight: Actual Target Trough: 15-20 A: Based on: trough P: 1. Continue Vancomycin 1250 mg IV q12h 2. Follow up Trough level in 5 days if therapy continues 3. Pharmacy will continue to monitor, follow and adjust therapy as needed. Carolina Cohen RPH, 08/24/18 [id number]
--- NOTE | 2018-08-24 09:03 | PDOC ---
Infectious Disease Note Subjective Subjective awake, feeling ok ROS ROS no n/v/d/sob/fever Vital Sign Vital Signs Vital Signs Date Time Temp Pulse Resp B/P (MAP) Pulse Ox O2 Delivery O2 Flow Rate FiO2 08/24/18 08:00 Room Air 08/24/18 07:42 92 08/24/18 07:00 98.5 68 18 149/65 (93) 98.5 Physical Exam PHYSICAL EXAM GENERAL: Alert, oriented gentleman, not in any distress. VITAL SIGNS: Stable, afebrile. HEENT: NAD. NECK: Supple, no JVP, no lymphadenopathy. LUNGS: Clear. HEART: S1, S2 regular. ABDOMEN: Benign. EXTREMITIES: No edema or cyanosis. SKIN: Unremarkable. NEUROLOGIC: The patient is neurologically intact. Labs Lab Laboratory Tests Test 08/24/18 07:13 White Blood Count 9.6 x10^3/uL (4.0-11.0) Red Blood Count 3.56 x10^6/uL (4.30-5.70) Hemoglobin 9.0 g/dL (13.0-17.5) Hematocrit 28.7 % (39.0-53.0) Mean Corpuscular Volume 81 fL (79-100) Mean Corpuscular Hemoglobin 25 pg (25-35) Mean Corpuscular Hemoglobin Concent 31 g/dL (31-37) Red Cell Distribution Width 15.7 % (11.5-14.5) Platelet Count 326 x10^3/uL (140-400) Neutrophils (%) (Auto) 75 % (31-73) Lymphocytes (%) (Auto) 14 % (24-48) Monocytes (%) (Auto) 9 % (0-9) Eosinophils (%) (Auto) 2 % (0-3) Basophils (%) (Auto) 1 % (0-3) Neutrophils # (Auto) 7.2 x10^3uL (1.8-7.7) Lymphocytes # (Auto) 1.3 x10^3/uL (1.0-4.8) Monocytes # (Auto) 0.8 x10^3/uL (0.0-1.1) Eosinophils # (Auto) 0.2 x10^3/uL (0.0-0.7) Basophils # (Auto) 0.1 x10^3/uL (0.0-0.2) Prothrombin Time 15.5 SEC (11.7-14.0) Prothromb Time International Ratio 1.3 (0.8-1.1) Vancomycin Level Trough 17.1 mcg/mL (10.0-20.0) Vancomycin Last Dose Date 08/23/18 Vancomycin Last Dose Time 1999 Micro Microbiology 08/22/18 Blood Culture - Preliminary, Resulted NO GROWTH AFTER 1 DAY Objective Assessment Cavitary pneumonia Wt loss Hemoptysis Smoking Plan Plan of Care bronch today vanc and zosyn check cultures AUGUSTA INFANTE MD Aug 24, 2018 09:03
[2018-08-24] MEDS: VANCOMYCIN 1.25 GM in IV NORMAL SALINE 250ML 250 ML IV SCH ×2 (09:28→20:07)
--- NOTE | 2018-08-24 10:03 | PDOC ---
PROGRESS NOTES Chief Complaint Chief Complaint Cavitary pneumonia in the right upper lobe - likely 2/2 lung cancer, but fungal or TB are possibilities, though less likely Hemoptysis Significant unintentional weight loss Parenchymal infiltrate in the right lower lobe - likely a secondary pneumonia, will treat empirically as community acquired Likely chronic obstructive pulmonary disease - likely is severe Anemia History of Present Illness History of Present Illness Mr. Betancourt presented with hemoptysis, significant weight loss, found to have cavitary lesion RUL. Pulm and ID following. Blood cultures 2 x negative for 24 hours. Patient was seen and examined at bedside today. Remains on TB precautions. Patient denies fever, chills, shortness of breath. On vanc and zosyn. Vitals Vitals Vital Signs Date Time Temp Pulse Resp B/P (MAP) Pulse Ox O2 Delivery O2 Flow Rate FiO2 08/24/18 08:00 Room Air 08/24/18 07:42 92 08/24/18 07:00 98.5 68 18 149/65 (93) 98.5 Physical Exam General: Alert, Oriented X3, Cooperative, No acute distress Heart: Regular rate, No murmurs Lungs: Clear Abdomen: Normal bowel sounds, Soft, No tenderness, No hepatosplenomegaly, No masses Extremities: No clubbing, No cyanosis, No edema, Normal pulses, No tenderness/ swelling Skin: No rashes, No significant lesion Labs LABS Laboratory Tests Test 08/24/18 07:13 White Blood Count 9.6 x10^3/uL (4.0-11.0) Red Blood Count 3.56 x10^6/uL (4.30-5.70) Hemoglobin 9.0 g/dL (13.0-17.5) Hematocrit 28.7 % (39.0-53.0) Mean Corpuscular Volume 81 fL (79-100) Mean Corpuscular Hemoglobin 25 pg (25-35) Mean Corpuscular Hemoglobin Concent 31 g/dL (31-37) Red Cell Distribution Width 15.7 % (11.5-14.5) Platelet Count 326 x10^3/uL (140-400) Neutrophils (%) (Auto) 75 % (31-73) Lymphocytes (%) (Auto) 14 % (24-48) Monocytes (%) (Auto) 9 % (0-9) Eosinophils (%) (Auto) 2 % (0-3) Basophils (%) (Auto) 1 % (0-3) Neutrophils # (Auto) 7.2 x10^3uL (1.8-7.7) Lymphocytes # (Auto) 1.3 x10^3/uL (1.0-4.8) Monocytes # (Auto) 0.8 x10^3/uL (0.0-1.1) Eosinophils # (Auto) 0.2 x10^3/uL (0.0-0.7) Basophils # (Auto) 0.1 x10^3/uL (0.0-0.2) Prothrombin Time 15.5 SEC (11.7-14.0) Prothromb Time International Ratio 1.3 (0.8-1.1) Vancomycin Level Trough 17.1 mcg/mL (10.0-20.0) Vancomycin Last Dose Date 08/23/18 Vancomycin Last Dose Time 1999 Review of Systems Review of Systems Denies fever, chills Denies cough Denies sore throat Assessment and Plan Assessmemt and Plan Problems Medical Problems: (1) Cavitary lesion of lung Status: Acute (2) Pneumonia Status: Acute Assessment: Cavitary pneumonia in the right upper lobe - likely 2/2 lung cancer, but fungal or TB are possibilities, though less likely Hemoptysis Significant unintentional weight loss Parenchymal infiltrate in the right lower lobe - likely a secondary pneumonia, will treat empirically as community acquired Likely chronic obstructive pulmonary disease - likely is severe Anemia Plan: Continue to monitor respiratory status Awaiting bronchoscopy results - will be completed today Appreciate subspecialty input Review labs in the am Continue empiric zosyn and vancomycin TB precautions Replete potassium Monitor blood cultures Comment Review of Relevant I have reviewed the following items tristan (where applicable) has been applied. Labs Laboratory Tests Test 08/22/18 16:05 08/22/18 16:45 08/23/18 08:55 08/24/18 07:13 White Blood Count 14.1 x10^3/uL (4.0-11.0) 9.8 x10^3/uL (4.0-11.0) 9.6 x10^3/uL (4.0-11.0) Red Blood Count 4.32 x10^6/uL (4.30-5.70) 3.47 x10^6/uL (4.30-5.70) 3.56 x10^6/uL (4.30-5.70) Hemoglobin 11.0 g/dL (13.0-17.5) 9.0 g/dL (13.0-17.5) 9.0 g/dL (13.0-17.5) Hematocrit 34.4 % (39.0-53.0) 28.0 % (39.0-53.0) 28.7 % (39.0-53.0) Mean Corpuscular Volume 80 fL (79-100) 81 fL (79-100) 81 fL (79-100) Mean Corpuscular Hemoglobin 26 pg (25-35) 26 pg (25-35) 25 pg (25-35) Mean Corpuscular Hemoglobin Concent 32 g/dL (31-37) 32 g/dL (31-37) 31 g/dL (31-37) Red Cell Distribution Width 15.8 % (11.5-14.5) 15.7 % (11.5-14.5) 15.7 % (11.5-14.5) Platelet Count 409 x10^3/uL (140-400) 311 x10^3/uL (140-400) 326 x10^3/uL (140-400) Neutrophils (%) (Auto) 83 % (31-73) 77 % (31-73) 75 % (31-73) Lymphocytes (%) (Auto) 9 % (24-48) 13 % (24-48) 14 % (24-48) Monocytes (%) (Auto) 7 % (0-9) 9 % (0-9) 9 % (0-9) Eosinophils (%) (Auto) 1 % (0-3) 1 % (0-3) 2 % (0-3) Basophils (%) (Auto) 1 % (0-3) 0 % (0-3) 1 % (0-3) Neutrophils # (Auto) 11.7 x10^3uL (1.8-7.7) 7.5 x10^3uL (1.8-7.7) 7.2 x10^3uL (1.8-7.7) Lymphocytes # (Auto) 1.3 x10^3/uL (1.0-4.8) 1.3 x10^3/uL (1.0-4.8) 1.3 x10^3/uL (1.0-4.8) Monocytes # (Auto) 1.0 x10^3/uL (0.0-1.1) 0.9 x10^3/uL (0.0-1.1) 0.8 x10^3/uL (0.0-1.1) Eosinophils # (Auto) 0.1 x10^3/uL (0.0-0.7) 0.1 x10^3/uL (0.0-0.7) 0.2 x10^3/uL (0.0-0.7) Basophils # (Auto) 0.1 x10^3/uL (0.0-0.2) 0.0 x10^3/uL (0.0-0.2) 0.1 x10^3/uL (0.0-0.2) Sodium Level 136 mmol/L (136-145) 142 mmol/L (136-145) Potassium Level 3.6 mmol/L (3.5-5.1) 3.3 mmol/L (3.5-5.1) Chloride Level 99 mmol/L (98-107) 105 mmol/L (98-107) Carbon Dioxide Level 30 mmol/L (21-32) 30 mmol/L (21-32) Anion Gap 7 (6-14) 7 (6-14) Blood Urea Nitrogen 11 mg/dL (8-26) 7 mg/dL (8-26) Creatinine 1.1 mg/dL (0.7-1.3) 0.9 mg/dL (0.7-1.3) Estimated GFR (Cockcroft-Gault) 66.6 83.9 BUN/Creatinine Ratio 10 (6-20) Glucose Level 168 mg/dL (70-99) 121 mg/dL (70-99) Lactic Acid Level 2.6 mmol/L (0.4-2.0) 1.0 mmol/L (0.4-2.0) Calcium Level 10.5 mg/dL (8.5-10.1) 9.5 mg/dL (8.5-10.1) Total Bilirubin 0.3 mg/dL (0.2-1.0) Aspartate Amino Transf (AST/SGOT) 17 U/L (15-37) Alanine Aminotransferase (ALT/SGPT) 19 U/L (16-63) Alkaline Phosphatase 97 U/L (46-116) Creatine Kinase 12 U/L (39-308) Creatine Kinase MB (Mass) < 0.5 ng/mL (0.0-3.6) Creatine Kinase MB Relative Index % (0-4) Troponin I Quantitative < 0.017 ng/mL (0.000-0.055) [id number]-Qhi-[id number]-Type Natriuretic Peptide 153 pg/mL (0-124) Total Protein 8.9 g/dL (6.4-8.2) Albumin 2.4 g/dL (3.4-5.0) Albumin/Globulin Ratio 0.4 (1.0-1.7) Influenza Type A Antigen Negative (NEGATIVE) Influenza Type B Antigen Negative (NEGATIVE) Prothrombin Time 16.4 SEC (11.7-14.0) 15.5 SEC (11.7-14.0) Prothromb Time International Ratio 1.4 (0.8-1.1) 1.3 (0.8-1.1) Procalcitonin 0.16 ng/mL (0.00-0.10) Vancomycin Level Trough 17.1 mcg/mL (10.0-20.0) Vancomycin Last Dose Date 08/23/18 Vancomycin Last Dose Time 1999 Laboratory Tests Test 08/24/18 07:13 White Blood Count 9.6 x10^3/uL (4.0-11.0) Red Blood Count 3.56 x10^6/uL (4.30-5.70) Hemoglobin 9.0 g/dL (13.0-17.5) Hematocrit 28.7 % (39.0-53.0) Mean Corpuscular Volume 81 fL (79-100) Mean Corpuscular Hemoglobin 25 pg (25-35) Mean Corpuscular Hemoglobin Concent 31 g/dL (31-37) Red Cell Distribution Width 15.7 % (11.5-14.5) Platelet Count 326 x10^3/uL (140-400) Neutrophils (%) (Auto) 75 % (31-73) Lymphocytes (%) (Auto) 14 % (24-48) Monocytes (%) (Auto) 9 % (0-9) Eosinophils (%) (Auto) 2 % (0-3) Basophils (%) (Auto) 1 % (0-3) Neutrophils # (Auto) 7.2 x10^3uL (1.8-7.7) Lymphocytes # (Auto) 1.3 x10^3/uL (1.0-4.8) Monocytes # (Auto) 0.8 x10^3/uL (0.0-1.1) Eosinophils # (Auto) 0.2 x10^3/uL (0.0-0.7) Basophils # (Auto) 0.1 x10^3/uL (0.0-0.2) Prothrombin Time 15.5 SEC (11.7-14.0) Prothromb Time International Ratio 1.3 (0.8-1.1) Vancomycin Level Trough 17.1 mcg/mL (10.0-20.0) Vancomycin Last Dose Date 08/23/18 Vancomycin Last Dose Time 1999 Microbiology 08/22/18 Blood Culture - Preliminary, Resulted NO GROWTH AFTER 1 DAY Medications Current Medications Albuterol/ Ipratropium (Duoneb) 3 ml 1X ONCE NEB Last administered on at 16:18; Start 08/22/18 at 16:15; Stop 08/22/18 at 16:21; Status DC Sodium Chloride 1,000 ml @ 1,000 mls/hr Q1H IV Last administered on 08/22/18at 16:43; Start 08/22/18 at 16:30; Stop 08/22/18 at 17:29; Status DC Iohexol (Omnipaque 350 Mg/ml) 75 ml 1X ONCE IV Last administered on 08/22/18at 16:59; Start 08/22/18 at 16:45; Stop 08/22/18 at 16:48; Status DC Info (CONTRAST GIVEN -- Rx MONITORING) 1 each PRN DAILY PRN MC SEE COMMENTS; Start 08/22/18 at 17:00; Stop 08/24/18 at 16:59 Piperacillin Sod/ Tazobactam Sod (Zosyn Per Pharmacy) 1 each PRN DAILY PRN MC SEE COMMENTS; Start 08/22/18 at 18:00 Vancomycin HCl (Vanco Per Pharmacy) 1 each PRN DAILY PRN MC SEE COMMENTS Last administered on 08/24/18at 08:46; Start 08/22/18 at 18:00 Albuterol/ Ipratropium (Duoneb) 3 ml Q6HRS NEB Last administered on 08/24/18at 07:40; Start 08/22/18 at 18:00 Piperacillin Sod/ Tazobactam Sod 3.375 gm/Sodium Chloride 50 ml @ 100 mls/hr Q6HRS IV Last administered on 08/23/18at 14:19; Start 08/22/18 at 18:00; Stop at 16:38; Status DC Vancomycin HCl 1.75 gm/Sodium Chloride 500 ml @ 250 mls/hr 1X ONCE IV Last administered on 08/22/18at 19:46; Start 08/22/18 at 18:30; Stop 08/22/18 at 20:29 ; Status DC Acetaminophen (Tylenol) 500 mg PRN Q6HRS PRN PO MILD PAIN / TEMP; Start at 18:45 Acetaminophen/ Codeine Phosphate (Tylenol #3) 1 tab PRN Q6HRS PRN PO MODERATE TO SEVERE PAIN; Start 08/22/18 at 18:45 Ondansetron HCl (Zofran) 4 mg PRN Q6HRS PRN IV NAUSEA/VOMITING; Start 08/22/18 at 18:45 Ondansetron HCl (Zofran Odt) 4 mg PRN Q6HRS PRN PO NAUSEA/VOMITING; Start 08/22 at 18:45 Temazepam (Restoril) 7.5 mg PRN QHS PRN PO INSOMNIA; Start 08/22/18 at 18:45 Sodium Chloride 1,000 ml @ 100 mls/hr 1X ONCE IV Last administered on at 22:38; Start 08/22/18 at 19:00; Stop 08/23/18 at 04:59; Status DC Guaifenesin (Robitussin Dm) 10 ml PRN Q6HRS PRN PO COUGH; Start 08/22/18 at 18: 45 Acetaminophen (Tylenol) 650 mg PRN Q6HRS PRN PO MILD PAIN / TEMP; Start at 17:00; Status UNV Nicotine (Nicoderm Cq 21mg) 1 patch PRN DAILY PRN TD SMOKING CESSATION; Start 08/22/18 at 19:15 Acetaminophen (Tylenol) 650 mg 1X ONCE PO Last administered on 08/22/18at 17:00 ; Start 08/22/18 at 19:30; Stop 08/22/18 at 19:31; Status DC Sodium Chloride 1,000 ml @ 1,000 mls/hr 1X ONCE IV Last administered on at 22:39; Start 08/22/18 at 21:00; Stop 08/22/18 at 21:59; Status DC Vancomycin HCl 1.25 gm/Sodium Chloride 250 ml @ 167 mls/hr Q12H IV Last administered on 08/24/18at 09:28; Start 08/23/18 at 08:00 Vancomycin HCl (Vancomycin Trough Level) 1 each 1X ONCE MC ; Start 08/24/18 at 07:30; Stop 08/24/18 at 07:31; Status DC Potassium Chloride (Klor-Con) 40 meq 1X ONCE PO Last administered on at 18:18; Start 08/23/18 at 16:00; Stop 08/23/18 at 16:01; Status DC Piperacillin Sod/ Tazobactam Sod 4.5 gm/Sodium Chloride 100 ml @ 200 mls/hr Q6HRS IV Last administered on 08/24/18at 05:15; Start 08/23/18 at 18:00 Lactobacillus Rhamnosus (Culturelle) 1 cap BID PO Last administered on at 19:48; Start 08/23/18 at 21:00 Ringer's Solution 1,000 ml @ 50 mls/hr Q20H IV ; Start 08/24/18 at 07:00; Stop 08/24/18 at 18:59 Potassium Chloride (Klor-Con) 40 meq 1X ONCE PO ; Start 08/24/18 at 08:30; Stop 08/24/18 at 08:31; Status DC Vitals/I & O Vital Sign - Last 24 Hours 08/23/18 08/23/18 08/23/18 08/23/18 11:00 11:32 15:00 19:00 Temp 98.5 98.6 99.7 98.5 98.6 99.7 Pulse 67 70 73 Resp 16 16 20 B/P (MAP) 110/54 (72) 118/62 (80) 121/56 (77) Pulse Ox 96 96 95 O2 Delivery Room Air Room Air Room Air Room Air 08/23/18 08/23/18 08/23/18 08/23/18 19:52 20:19 23:00 23:38 Temp 98.8 98.8 Pulse 59 Resp 20 B/P (MAP) 113/54 (73) Pulse Ox 99 92 O2 Delivery Room Air Room Air Room Air Room Air 08/24/18 08/24/18 08/24/18 08/24/18 03:00 07:00 07:42 08:00 Temp 98.9 98.5 98.9 98.5 Pulse 83 68 Resp 20 18 B/P (MAP) 138/67 (90) 149/65 (93) Pulse Ox 94 91 92 O2 Delivery Room Air Room Air Room Air Room Air Intake and Output 08/23/18 08/23/18 08/24/18 15:00 23:00 07:00 Intake Total 200 ml 800 ml Output Total 350 ml 400 ml 800 ml Balance -350 ml -200 ml 0 ml ANDRÉS FARAH III DO Aug 24, 2018 10:03
[2018-08-24] MEDS ORDERED: LIDOCAINE 1% Multi-Dose 20 ML VIAL. INJ PRN (11:00)
[2018-08-24] MEDS ORDERED: LIDOCAINE 4% TOPICAL 50 ML SOLUTION. MM PRN (11:00)
[2018-08-24] MEDS ORDERED: LIDOCAINE 2% VISCOUS 100 ML BOTTLE. MM PRN (11:00)
[2018-08-24] MEDS ORDERED: LIDOCAINE 2% VISCOUS 100 ML BOTTLE. ONE (11:13)
[2018-08-24] MEDS ORDERED: LIDOCAINE 4% TOPICAL 50 ML SOLUTION. ONE (11:13)
[2018-08-24] MEDS ORDERED: LIDOCAINE 1% Multi-Dose 20 ML VIAL. ONE (11:13)
[2018-08-24] MEDS ORDERED: EPINEPHrine 1 MG/ML VIAL ONE ×2 (11:13→12:20)
[2018-08-24] MEDS ORDERED: PROPOFOL 20 ML IV ONE (12:06)
--- NOTE | 2018-08-24 12:38 | OP ---
DATE OF SURGERY: PROCEDURE: Bronchoscopy. INDICATION: Endobronchial lesion, lung mass. DESCRIPTION OF PROCEDURE: Informed consent was obtained from the patient. All risks and benefits were explained. He agreed to proceed with the procedure. Propofol was used for sedation by Anesthesia. Bronch was introduced through the right nostril. The upper airway was passed. Vocal cords moves equally with respiration. The trachea was entered. No tracheal lesions seen. At the inspection of the nataliya, there was a totally obstructing endobronchial lesion causing near complete occlusion of the right mainstem bronchus and within 2 cm of the nataliya. There was a very tiny opening leading to bronchus intermedius where galen pus was coming out. Prolonged suction was applied and the patient continued to have oozing of pus, which was all suctioned. A biopsy x 2 was performed from the endobronchial tumor. There was oozing of blood noticed and no further biopsies were performed. The patient required squirts of epinephrine to control the bleeding, which eventually resulted in a clot on top of the tumor. The left lung was examined. No endobronchial lesions seen in the left upper lobe, lingula or left lower lobe. The blood that he aspirated into the left lower lobe was suctioned out thoroughly with the bronchoscope. The patient tolerated the procedure well. IMPRESSION: 1. 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 2. Galen pus coming out through a very tiny opening in Right main stem leading to bronchus intermedius and the patient required significant suctioning to remove the pus from that opening. 3. Biopsies x 2 and bronchial wash was performed. Bleeding was controlled with squirts of epinephrine. 4. Follow the results of cytology and culture. ANKIT BONILLA MD DR: TOSIN/alice JOB#: [id number] / [id number] RUEL
[2018-08-24] MEDS: EPINEPHrine 1 MG/ML VIAL INJ PRN ×2 (12:45→12:46)
[2018-08-24 12:47] LABS: CALCIUM 9.8 mg/dL (8.5-10.1); CREATININE 0.9 mg/dL (0.7-1.3); GFR 83.9; POTASSIUM 3.6 mmol/L (3.5-5.1)
--- NOTE | 2018-08-24 13:00 | PDOC ---
PULMONARY PROGRESS NOTES Subjective no soa Vitals Vital Signs Date Time Temp Pulse Resp B/P (MAP) Pulse Ox O2 Delivery O2 Flow Rate FiO2 08/24/18 12:44 98.2 96 18 107/60 96 Simple Mask 4 98.2 General: Alert, No acute distress Lungs: Other (decrease right) Cardiovascular: S1 Abdomen: Soft Neuro Exam: Alert Extremities: No Edema Skin: Warm Labs Laboratory Tests Test 08/22/18 16:05 08/22/18 16:45 08/23/18 08:55 08/24/18 07:13 White Blood Count 14.1 x10^3/uL (4.0-11.0) 9.8 x10^3/uL (4.0-11.0) 9.6 x10^3/uL (4.0-11.0) Red Blood Count 4.32 x10^6/uL (4.30-5.70) 3.47 x10^6/uL (4.30-5.70) 3.56 x10^6/uL (4.30-5.70) Hemoglobin 11.0 g/dL (13.0-17.5) 9.0 g/dL (13.0-17.5) 9.0 g/dL (13.0-17.5) Hematocrit 34.4 % (39.0-53.0) 28.0 % (39.0-53.0) 28.7 % (39.0-53.0) Mean Corpuscular Volume 80 fL (79-100) 81 fL (79-100) 81 fL (79-100) Mean Corpuscular Hemoglobin 26 pg (25-35) 26 pg (25-35) 25 pg (25-35) Mean Corpuscular Hemoglobin Concent 32 g/dL (31-37) 32 g/dL (31-37) 31 g/dL (31-37) Red Cell Distribution Width 15.8 % (11.5-14.5) 15.7 % (11.5-14.5) 15.7 % (11.5-14.5) Platelet Count 409 x10^3/uL (140-400) 311 x10^3/uL (140-400) 326 x10^3/uL (140-400) Neutrophils (%) (Auto) 83 % (31-73) 77 % (31-73) 75 % (31-73) Lymphocytes (%) (Auto) 9 % (24-48) 13 % (24-48) 14 % (24-48) Monocytes (%) (Auto) 7 % (0-9) 9 % (0-9) 9 % (0-9) Eosinophils (%) (Auto) 1 % (0-3) 1 % (0-3) 2 % (0-3) Basophils (%) (Auto) 1 % (0-3) 0 % (0-3) 1 % (0-3) Neutrophils # (Auto) 11.7 x10^3uL (1.8-7.7) 7.5 x10^3uL (1.8-7.7) 7.2 x10^3uL (1.8-7.7) Lymphocytes # (Auto) 1.3 x10^3/uL (1.0-4.8) 1.3 x10^3/uL (1.0-4.8) 1.3 x10^3/uL (1.0-4.8) Monocytes # (Auto) 1.0 x10^3/uL (0.0-1.1) 0.9 x10^3/uL (0.0-1.1) 0.8 x10^3/uL (0.0-1.1) Eosinophils # (Auto) 0.1 x10^3/uL (0.0-0.7) 0.1 x10^3/uL (0.0-0.7) 0.2 x10^3/uL (0.0-0.7) Basophils # (Auto) 0.1 x10^3/uL (0.0-0.2) 0.0 x10^3/uL (0.0-0.2) 0.1 x10^3/uL (0.0-0.2) Sodium Level 136 mmol/L (136-145) 142 mmol/L (136-145) 142 mmol/L (136-145) Potassium Level 3.6 mmol/L (3.5-5.1) 3.3 mmol/L (3.5-5.1) 3.6 mmol/L (3.5-5.1) Chloride Level 99 mmol/L (98-107) 105 mmol/L (98-107) 106 mmol/L (98-107) Carbon Dioxide Level 30 mmol/L (21-32) 30 mmol/L (21-32) 28 mmol/L (21-32) Anion Gap 7 (6-14) 7 (6-14) 8 (6-14) Blood Urea Nitrogen 11 mg/dL (8-26) 7 mg/dL (8-26) 4 mg/dL (8-26) Creatinine 1.1 mg/dL (0.7-1.3) 0.9 mg/dL (0.7-1.3) 0.9 mg/dL (0.7-1.3) Estimated GFR (Cockcroft-Gault) 66.6 83.9 83.9 BUN/Creatinine Ratio 10 (6-20) Glucose Level 168 mg/dL (70-99) 121 mg/dL (70-99) 96 mg/dL (70-99) Lactic Acid Level 2.6 mmol/L (0.4-2.0) 1.0 mmol/L (0.4-2.0) Calcium Level 10.5 mg/dL (8.5-10.1) 9.5 mg/dL (8.5-10.1) 9.8 mg/dL (8.5-10.1) Total Bilirubin 0.3 mg/dL (0.2-1.0) Aspartate Amino Transf (AST/SGOT) 17 U/L (15-37) Alanine Aminotransferase (ALT/SGPT) 19 U/L (16-63) Alkaline Phosphatase 97 U/L (46-116) Creatine Kinase 12 U/L (39-308) Creatine Kinase MB (Mass) < 0.5 ng/mL (0.0-3.6) Creatine Kinase MB Relative Index % (0-4) Troponin I Quantitative < 0.017 ng/mL (0.000-0.055) FL-[id number]-[id number]-Type Natriuretic Peptide 153 pg/mL (0-124) Total Protein 8.9 g/dL (6.4-8.2) Albumin 2.4 g/dL (3.4-5.0) Albumin/Globulin Ratio 0.4 (1.0-1.7) Influenza Type A Antigen Negative (NEGATIVE) Influenza Type B Antigen Negative (NEGATIVE) Prothrombin Time 16.4 SEC (11.7-14.0) 15.5 SEC (11.7-14.0) Prothromb Time International Ratio 1.4 (0.8-1.1) 1.3 (0.8-1.1) Procalcitonin 0.16 ng/mL (0.00-0.10) Vancomycin Level Trough 17.1 mcg/mL (10.0-20.0) Vancomycin Last Dose Date 08/23/18 Vancomycin Last Dose Time 1999 Laboratory Tests Test 08/24/18 07:13 White Blood Count 9.6 x10^3/uL (4.0-11.0) Red Blood Count 3.56 x10^6/uL (4.30-5.70) Hemoglobin 9.0 g/dL (13.0-17.5) Hematocrit 28.7 % (39.0-53.0) Mean Corpuscular Volume 81 fL (79-100) Mean Corpuscular Hemoglobin 25 pg (25-35) Mean Corpuscular Hemoglobin Concent 31 g/dL (31-37) Red Cell Distribution Width 15.7 % (11.5-14.5) Platelet Count 326 x10^3/uL (140-400) Neutrophils (%) (Auto) 75 % (31-73) Lymphocytes (%) (Auto) 14 % (24-48) Monocytes (%) (Auto) 9 % (0-9) Eosinophils (%) (Auto) 2 % (0-3) Basophils (%) (Auto) 1 % (0-3) Neutrophils # (Auto) 7.2 x10^3uL (1.8-7.7) Lymphocytes # (Auto) 1.3 x10^3/uL (1.0-4.8) Monocytes # (Auto) 0.8 x10^3/uL (0.0-1.1) Eosinophils # (Auto) 0.2 x10^3/uL (0.0-0.7) Basophils # (Auto) 0.1 x10^3/uL (0.0-0.2) Prothrombin Time 15.5 SEC (11.7-14.0) Prothromb Time International Ratio 1.3 (0.8-1.1) Sodium Level 142 mmol/L (136-145) Potassium Level 3.6 mmol/L (3.5-5.1) Chloride Level 106 mmol/L (98-107) Carbon Dioxide Level 28 mmol/L (21-32) Anion Gap 8 (6-14) Blood Urea Nitrogen 4 mg/dL (8-26) Creatinine 0.9 mg/dL (0.7-1.3) Estimated GFR (Cockcroft-Gault) 83.9 Glucose Level 96 mg/dL (70-99) Calcium Level 9.8 mg/dL (8.5-10.1) Vancomycin Level Trough 17.1 mcg/mL (10.0-20.0) Vancomycin Last Dose Date 08/23/18 Vancomycin Last Dose Time 1999 Impression . 1. A 68-year-old with hemoptysis, 35-pound weight loss and highly abnormal CT chest with cavitary pneumonia in the right upper lobe and extensive parenchymal infiltrate in the right lower lobe. He most likely has post-obstructive pneumonia and suspected lung cancer causing endobronchial obstruction in the right upper lobe. He has significant narrowing of the right upper lobe bronchus. 2. Suspect underlying chronic obstructive pulmonary disease, could be severe. He smoked for 51 years. 3. A 35-pound weight loss, likely malignancy and unlikely tuberculosis. Plan . 1. s/p bronchoscopy; totally occluding endobronchial mass right main stem/ galen pus seen from a tiny opening 2. Continue present antibiotics. 3. dc isolation for TB. 4. Once malignancy is confirmed, I would consult medical and Radiation Oncology. 5. PFTs at some point 6. Continue bronchodilators. 7. Discussed with Dr. Mills and Dr. Lamine Hu and we will follow along with ANKIT BONILLA MD Aug 24, 2018 13:00
[2018-08-24 13:39] VITALS: BP 138/84
[2018-08-24 15:00] VITALS: BP 122/56
[2018-08-24 19:00] VITALS: BP 125/62
[2018-08-24 23:00] VITALS: BP 116/67
[2018-08-25] MEDS: PIPERACILLIN/TAZOBACTAM 4.5 GM in IV NORMAL SALINE 100ML 100 ML IV SCH ×4 (00:09→17:09)
[2018-08-25] MEDS: ACETAMINOPHEN 500 MG TABLET PO PRN ×2 (00:19→19:43)
[2018-08-25 03:00] VITALS: BP 116/62
[2018-08-25 06:19] LABS: BASO # 0.1 x10^3/uL (0.0-0.2); BASO % 1 % (0-3); EOS # 0.3 x10^3/uL (0.0-0.7); EOS % 3 % (0-3); LYMPH # 1.6 x10^3/uL (1.0-4.8); LYMPH % 16 % (24-48); MEAN CORPUSCULAR HEMOGLOBIN 26 pg (25-35); MEAN CORPUSCULAR HGB CONC 32 g/dL (31-37); MEAN CORPUSCULAR VOLUME 80 fL (79-100); MONO # 0.8 x10^3/uL (0.0-1.1); MONO % 8 % (0-9); NEUT # 7.3 x10^3uL (1.8-7.7); NEUT % 72 % (31-73); PLATELET COUNT 346 x10^3/uL (140-400); RED BLOOD COUNT 3.49 x10^6/uL (4.30-5.70); RED CELL DISTRIBUTION WIDTH 15.9 % (11.5-14.5); WHITE BLOOD COUNT 10.1 x10^3/uL (4.0-11.0)
[2018-08-25] MEDS: IPRATRPIUM/ALBUTEROL 0.5/2.5MG 3 ML NEBU. NEB SCH ×4 (06:53→19:38)
[2018-08-25 06:54] LABS: ALBUMIN 1.7 g/dL (3.4-5.0); ALBUMIN/GLOBULIN RATIO 0.3 (1.0-1.7); CALCIUM 9.9 mg/dL (8.5-10.1); GFR 74.3; TOTAL BILIRUBIN 0.5 mg/dL (0.2-1.0); TOTAL PROTEIN 6.9 g/dL (6.4-8.2)
[2018-08-25 06:57] LABS: POTASSIUM 3.8 mmol/L (3.5-5.1)
[2018-08-25 07:00] VITALS: BP 116/50
--- NOTE | 2018-08-25 08:57 | PDOC ---
Infectious Disease Note Subjective Subjective awake, feeling ok ROS ROS no n/v/d/ Vital Sign Vital Signs Vital Signs Date Time Temp Pulse Resp B/P (MAP) Pulse Ox O2 Delivery O2 Flow Rate FiO2 08/25/18 07:00 98.4 65 18 116/50 (72) 94 Nasal Cannula 2.0 98.4 Physical Exam PHYSICAL EXAM GENERAL: Alert, oriented gentleman, not in any distress. VITAL SIGNS: Stable, afebrile. HEENT: NAD. NECK: Supple, no JVP, no lymphadenopathy. LUNGS: Clear. HEART: S1, S2 regular. ABDOMEN: Benign. EXTREMITIES: No edema or cyanosis. SKIN: Unremarkable. NEUROLOGIC: The patient is neurologically intact. Labs Lab Laboratory Tests Test 08/25/18 05:15 White Blood Count 10.1 x10^3/uL (4.0-11.0) Red Blood Count 3.49 x10^6/uL (4.30-5.70) Hemoglobin 9.0 g/dL (13.0-17.5) Hematocrit 28.0 % (39.0-53.0) Mean Corpuscular Volume 80 fL (79-100) Mean Corpuscular Hemoglobin 26 pg (25-35) Mean Corpuscular Hemoglobin Concent 32 g/dL (31-37) Red Cell Distribution Width 15.9 % (11.5-14.5) Platelet Count 346 x10^3/uL (140-400) Neutrophils (%) (Auto) 72 % (31-73) Lymphocytes (%) (Auto) 16 % (24-48) Monocytes (%) (Auto) 8 % (0-9) Eosinophils (%) (Auto) 3 % (0-3) Basophils (%) (Auto) 1 % (0-3) Neutrophils # (Auto) 7.3 x10^3uL (1.8-7.7) Lymphocytes # (Auto) 1.6 x10^3/uL (1.0-4.8) Monocytes # (Auto) 0.8 x10^3/uL (0.0-1.1) Eosinophils # (Auto) 0.3 x10^3/uL (0.0-0.7) Basophils # (Auto) 0.1 x10^3/uL (0.0-0.2) Sodium Level 145 mmol/L (136-145) Potassium Level 3.8 mmol/L (3.5-5.1) Chloride Level 108 mmol/L (98-107) Carbon Dioxide Level 30 mmol/L (21-32) Anion Gap 7 (6-14) Blood Urea Nitrogen 4 mg/dL (8-26) Creatinine 1.0 mg/dL (0.7-1.3) Estimated GFR (Cockcroft-Gault) 74.3 BUN/Creatinine Ratio 4 (6-20) Glucose Level 89 mg/dL (70-99) Calcium Level 9.9 mg/dL (8.5-10.1) Total Bilirubin 0.5 mg/dL (0.2-1.0) Aspartate Amino Transf (AST/SGOT) 18 U/L (15-37) Alanine Aminotransferase (ALT/SGPT) 15 U/L (16-63) Alkaline Phosphatase 61 U/L (46-116) Total Protein 6.9 g/dL (6.4-8.2) Albumin 1.7 g/dL (3.4-5.0) Albumin/Globulin Ratio 0.3 (1.0-1.7) Micro GRAM STAIN WHITE BLOOD CELLS Final Few GRAM STAIN EPITHELIAL CELLS Final Few GRAM STAIN RESULT 1 Final Comment Few gram positive cocci GRAM STAIN EVALUATION Final Comment This specimen is of good quality and is acceptable for routine bacterial culture. Performed at: - [facility], [place], [place] [id number] Knockout Worker: JUAN Tyler MD, Phone: [phone] SPUTUM CULTURE-LC PENDING Objective Assessment Cavitary pneumonia , Pulmonary mass suspected malignancy and post obstructive pneumonia Wt loss Hemoptysis Smoking Plan Plan of Care vanc and zosyn check cultures check biopsy AUGUSTA INFANTE MD Aug 25, 2018 08:57
[2018-08-25] MEDS: LACTOBACILLUS RHAMNOSUS GG 1 CAPSULE. PO SCH ×2 (09:07→20:34)
[2018-08-25] MEDS: VANCOMYCIN 1.25 GM in IV NORMAL SALINE 250ML 250 ML IV SCH ×2 (09:30→20:34)
[2018-08-25 11:00] VITALS: BP 122/71
--- NOTE | 2018-08-25 11:02 | PDOC ---
PULMONARY PROGRESS NOTES Subjective no soa Vitals Vital Signs Date Time Temp Pulse Resp B/P (MAP) Pulse Ox O2 Delivery O2 Flow Rate FiO2 08/25/18 08:00 Room Air 2.0 08/25/18 07:00 98.4 65 18 116/50 (72) 94 98.4 General: Alert, No acute distress Lungs: Other (decrease right) Cardiovascular: S1 Abdomen: Soft Neuro Exam: Alert Extremities: No Edema Skin: Warm Labs Laboratory Tests Test 08/24/18 07:13 08/25/18 05:15 White Blood Count 9.6 x10^3/uL (4.0-11.0) 10.1 x10^3/uL (4.0-11.0) Red Blood Count 3.56 x10^6/uL (4.30-5.70) 3.49 x10^6/uL (4.30-5.70) Hemoglobin 9.0 g/dL (13.0-17.5) 9.0 g/dL (13.0-17.5) Hematocrit 28.7 % (39.0-53.0) 28.0 % (39.0-53.0) Mean Corpuscular Volume 81 fL (79-100) 80 fL (79-100) Mean Corpuscular Hemoglobin 25 pg (25-35) 26 pg (25-35) Mean Corpuscular Hemoglobin Concent 31 g/dL (31-37) 32 g/dL (31-37) Red Cell Distribution Width 15.7 % (11.5-14.5) 15.9 % (11.5-14.5) Platelet Count 326 x10^3/uL (140-400) 346 x10^3/uL (140-400) Neutrophils (%) (Auto) 75 % (31-73) 72 % (31-73) Lymphocytes (%) (Auto) 14 % (24-48) 16 % (24-48) Monocytes (%) (Auto) 9 % (0-9) 8 % (0-9) Eosinophils (%) (Auto) 2 % (0-3) 3 % (0-3) Basophils (%) (Auto) 1 % (0-3) 1 % (0-3) Neutrophils # (Auto) 7.2 x10^3uL (1.8-7.7) 7.3 x10^3uL (1.8-7.7) Lymphocytes # (Auto) 1.3 x10^3/uL (1.0-4.8) 1.6 x10^3/uL (1.0-4.8) Monocytes # (Auto) 0.8 x10^3/uL (0.0-1.1) 0.8 x10^3/uL (0.0-1.1) Eosinophils # (Auto) 0.2 x10^3/uL (0.0-0.7) 0.3 x10^3/uL (0.0-0.7) Basophils # (Auto) 0.1 x10^3/uL (0.0-0.2) 0.1 x10^3/uL (0.0-0.2) Prothrombin Time 15.5 SEC (11.7-14.0) Prothromb Time International Ratio 1.3 (0.8-1.1) Sodium Level 142 mmol/L (136-145) 145 mmol/L (136-145) Potassium Level 3.6 mmol/L (3.5-5.1) 3.8 mmol/L (3.5-5.1) Chloride Level 106 mmol/L (98-107) 108 mmol/L (98-107) Carbon Dioxide Level 28 mmol/L (21-32) 30 mmol/L (21-32) Anion Gap 8 (6-14) 7 (6-14) Blood Urea Nitrogen 4 mg/dL (8-26) 4 mg/dL (8-26) Creatinine 0.9 mg/dL (0.7-1.3) 1.0 mg/dL (0.7-1.3) Estimated GFR (Cockcroft-Gault) 83.9 74.3 Glucose Level 96 mg/dL (70-99) 89 mg/dL (70-99) Calcium Level 9.8 mg/dL (8.5-10.1) 9.9 mg/dL (8.5-10.1) Iron Level 14 ug/dL (65-175) Total Iron Binding Capacity 117 ug/dL (250-450) Iron Saturation 12 % (15-34) Vancomycin Level Trough 17.1 mcg/mL (10.0-20.0) Vancomycin Last Dose Date 08/23/18 Vancomycin Last Dose Time 1999 BUN/Creatinine Ratio 4 (6-20) Total Bilirubin 0.5 mg/dL (0.2-1.0) Aspartate Amino Transf (AST/SGOT) 18 U/L (15-37) Alanine Aminotransferase (ALT/SGPT) 15 U/L (16-63) Alkaline Phosphatase 61 U/L (46-116) Total Protein 6.9 g/dL (6.4-8.2) Albumin 1.7 g/dL (3.4-5.0) Albumin/Globulin Ratio 0.3 (1.0-1.7) Laboratory Tests Test 08/25/18 05:15 White Blood Count 10.1 x10^3/uL (4.0-11.0) Red Blood Count 3.49 x10^6/uL (4.30-5.70) Hemoglobin 9.0 g/dL (13.0-17.5) Hematocrit 28.0 % (39.0-53.0) Mean Corpuscular Volume 80 fL (79-100) Mean Corpuscular Hemoglobin 26 pg (25-35) Mean Corpuscular Hemoglobin Concent 32 g/dL (31-37) Red Cell Distribution Width 15.9 % (11.5-14.5) Platelet Count 346 x10^3/uL (140-400) Neutrophils (%) (Auto) 72 % (31-73) Lymphocytes (%) (Auto) 16 % (24-48) Monocytes (%) (Auto) 8 % (0-9) Eosinophils (%) (Auto) 3 % (0-3) Basophils (%) (Auto) 1 % (0-3) Neutrophils # (Auto) 7.3 x10^3uL (1.8-7.7) Lymphocytes # (Auto) 1.6 x10^3/uL (1.0-4.8) Monocytes # (Auto) 0.8 x10^3/uL (0.0-1.1) Eosinophils # (Auto) 0.3 x10^3/uL (0.0-0.7) Basophils # (Auto) 0.1 x10^3/uL (0.0-0.2) Sodium Level 145 mmol/L (136-145) Potassium Level 3.8 mmol/L (3.5-5.1) Chloride Level 108 mmol/L (98-107) Carbon Dioxide Level 30 mmol/L (21-32) Anion Gap 7 (6-14) Blood Urea Nitrogen 4 mg/dL (8-26) Creatinine 1.0 mg/dL (0.7-1.3) Estimated GFR (Cockcroft-Gault) 74.3 BUN/Creatinine Ratio 4 (6-20) Glucose Level 89 mg/dL (70-99) Calcium Level 9.9 mg/dL (8.5-10.1) Total Bilirubin 0.5 mg/dL (0.2-1.0) Aspartate Amino Transf (AST/SGOT) 18 U/L (15-37) Alanine Aminotransferase (ALT/SGPT) 15 U/L (16-63) Alkaline Phosphatase 61 U/L (46-116) Total Protein 6.9 g/dL (6.4-8.2) Albumin 1.7 g/dL (3.4-5.0) Albumin/Globulin Ratio 0.3 (1.0-1.7) Impression . 1. A 68-year-old with hemoptysis, 35-pound weight loss and highly abnormal CT chest with cavitary pneumonia in the right upper lobe and extensive parenchymal infiltrate in the right lower lobe. He has post-obstructive pneumonia and large endobronchial obstruction in the right main stem. s/p Bronch / Bx 2. Suspect underlying chronic obstructive pulmonary disease, could be severe. He smoked for 51 years. 3. A 35-pound weight loss, likely malignancy and unlikely tuberculosis. Plan . 1. s/p bronchoscopy; totally occluding endobronchial mass right main stem/ galen pus seen from a tiny opening 2. Continue present antibiotics. 3. off isolation for TB. 4. consult medical and Radiation Oncology. 5. PFTs at some point 6. Continue bronchodilators. 7. Discussed with Dr. Mills and ANKIT Sandhu MD Aug 25, 2018 11:02
--- NOTE | 2018-08-25 11:37 | PDOC ---
PROGRESS NOTES Chief Complaint Chief Complaint Cavitary pneumonia in the right upper lobe - likely 2/2 lung cancer, but fungal or TB are possibilities, though less likely, totally occluding endobronchial mass seen on bronchoscopy Hemoptysis Significant unintentional weight loss Parenchymal infiltrate in the right lower lobe - likely a secondary pneumonia, will treat empirically as community acquired Likely chronic obstructive pulmonary disease - likely is severe Anemia History of Present Illness History of Present Illness Mr. Betancourt presented with hemoptysis, significant weight loss, found to have cavitary lesion RUL. Pulm and ID following. Blood cultures 2 x negative for 24 hours. Patient was seen and examined at bedside today. Patient has been taken off of TB precautions. Bronchoscopy completed yesterday showed endobronchial mass at R mainstem bronchus and galen pus. Patient denies fever, chills. Patient on vancomycin and zosyn. Vitals Vitals Vital Signs Date Time Temp Pulse Resp B/P (MAP) Pulse Ox O2 Delivery O2 Flow Rate FiO2 08/25/18 08:00 Room Air 2.0 08/25/18 07:00 98.4 65 18 116/50 (72) 94 98.4 Physical Exam Physical Exam GENERAL: Alert, oriented gentleman, not in any distress. VITAL SIGNS: Stable, afebrile. HEENT: NAD. NECK: Supple, no JVP, no lymphadenopathy. LUNGS: Clear. HEART: S1, S2 regular. ABDOMEN: Benign. EXTREMITIES: No edema or cyanosis. SKIN: Unremarkable. NEUROLOGIC: The patient is neurologically intact. General: Alert, Oriented X3, Cooperative, No acute distress Heart: Regular rate, No murmurs Lungs: Other (decrease right) Abdomen: Normal bowel sounds, Soft, No tenderness, No hepatosplenomegaly, No masses Extremities: No clubbing, No cyanosis, No edema, Normal pulses, No tenderness/ swelling Skin: No rashes, No significant lesion Labs LABS Laboratory Tests Test 08/25/18 05:15 White Blood Count 10.1 x10^3/uL (4.0-11.0) Red Blood Count 3.49 x10^6/uL (4.30-5.70) Hemoglobin 9.0 g/dL (13.0-17.5) Hematocrit 28.0 % (39.0-53.0) Mean Corpuscular Volume 80 fL (79-100) Mean Corpuscular Hemoglobin 26 pg (25-35) Mean Corpuscular Hemoglobin Concent 32 g/dL (31-37) Red Cell Distribution Width 15.9 % (11.5-14.5) Platelet Count 346 x10^3/uL (140-400) Neutrophils (%) (Auto) 72 % (31-73) Lymphocytes (%) (Auto) 16 % (24-48) Monocytes (%) (Auto) 8 % (0-9) Eosinophils (%) (Auto) 3 % (0-3) Basophils (%) (Auto) 1 % (0-3) Neutrophils # (Auto) 7.3 x10^3uL (1.8-7.7) Lymphocytes # (Auto) 1.6 x10^3/uL (1.0-4.8) Monocytes # (Auto) 0.8 x10^3/uL (0.0-1.1) Eosinophils # (Auto) 0.3 x10^3/uL (0.0-0.7) Basophils # (Auto) 0.1 x10^3/uL (0.0-0.2) Sodium Level 145 mmol/L (136-145) Potassium Level 3.8 mmol/L (3.5-5.1) Chloride Level 108 mmol/L (98-107) Carbon Dioxide Level 30 mmol/L (21-32) Anion Gap 7 (6-14) Blood Urea Nitrogen 4 mg/dL (8-26) Creatinine 1.0 mg/dL (0.7-1.3) Estimated GFR (Cockcroft-Gault) 74.3 BUN/Creatinine Ratio 4 (6-20) Glucose Level 89 mg/dL (70-99) Calcium Level 9.9 mg/dL (8.5-10.1) Total Bilirubin 0.5 mg/dL (0.2-1.0) Aspartate Amino Transf (AST/SGOT) 18 U/L (15-37) Alanine Aminotransferase (ALT/SGPT) 15 U/L (16-63) Alkaline Phosphatase 61 U/L (46-116) Total Protein 6.9 g/dL (6.4-8.2) Albumin 1.7 g/dL (3.4-5.0) Albumin/Globulin Ratio 0.3 (1.0-1.7) Review of Systems Review of Systems Denies shortness of breath Denies cough Assessment and Plan Assessmemt and Plan Problems Medical Problems: (1) Cavitary lesion of lung Status: Acute (2) Pneumonia Status: Acute Assessment: Cavitary pneumonia in the right upper lobe - likely 2/2 lung cancer, but fungal or TB are possibilities, though less likely, totally occluding endobronchial mass seen on bronchoscopy Hemoptysis Significant unintentional weight loss Parenchymal infiltrate in the right lower lobe - likely a secondary pneumonia, will treat empirically as community acquired Likely chronic obstructive pulmonary disease - likely is severe Anemia Plan: Continue vancomycin and zosyn Awaiting biopsy report Reviewed bronch results: endobronchial mass and galen pus likely malignancy Patient off of TB precautions Continue to monitor respiratory status Appreciate subspecialty input Review labs in the am Heme/Onc consulted, awaiting recommendations Comment Review of Relevant I have reviewed the following items tristan (where applicable) has been applied. Labs Laboratory Tests Test 08/24/18 07:13 08/25/18 05:15 White Blood Count 9.6 x10^3/uL (4.0-11.0) 10.1 x10^3/uL (4.0-11.0) Red Blood Count 3.56 x10^6/uL (4.30-5.70) 3.49 x10^6/uL (4.30-5.70) Hemoglobin 9.0 g/dL (13.0-17.5) 9.0 g/dL (13.0-17.5) Hematocrit 28.7 % (39.0-53.0) 28.0 % (39.0-53.0) Mean Corpuscular Volume 81 fL (79-100) 80 fL (79-100) Mean Corpuscular Hemoglobin 25 pg (25-35) 26 pg (25-35) Mean Corpuscular Hemoglobin Concent 31 g/dL (31-37) 32 g/dL (31-37) Red Cell Distribution Width 15.7 % (11.5-14.5) 15.9 % (11.5-14.5) Platelet Count 326 x10^3/uL (140-400) 346 x10^3/uL (140-400) Neutrophils (%) (Auto) 75 % (31-73) 72 % (31-73) Lymphocytes (%) (Auto) 14 % (24-48) 16 % (24-48) Monocytes (%) (Auto) 9 % (0-9) 8 % (0-9) Eosinophils (%) (Auto) 2 % (0-3) 3 % (0-3) Basophils (%) (Auto) 1 % (0-3) 1 % (0-3) Neutrophils # (Auto) 7.2 x10^3uL (1.8-7.7) 7.3 x10^3uL (1.8-7.7) Lymphocytes # (Auto) 1.3 x10^3/uL (1.0-4.8) 1.6 x10^3/uL (1.0-4.8) Monocytes # (Auto) 0.8 x10^3/uL (0.0-1.1) 0.8 x10^3/uL (0.0-1.1) Eosinophils # (Auto) 0.2 x10^3/uL (0.0-0.7) 0.3 x10^3/uL (0.0-0.7) Basophils # (Auto) 0.1 x10^3/uL (0.0-0.2) 0.1 x10^3/uL (0.0-0.2) Prothrombin Time 15.5 SEC (11.7-14.0) Prothromb Time International Ratio 1.3 (0.8-1.1) Sodium Level 142 mmol/L (136-145) 145 mmol/L (136-145) Potassium Level 3.6 mmol/L (3.5-5.1) 3.8 mmol/L (3.5-5.1) Chloride Level 106 mmol/L (98-107) 108 mmol/L (98-107) Carbon Dioxide Level 28 mmol/L (21-32) 30 mmol/L (21-32) Anion Gap 8 (6-14) 7 (6-14) Blood Urea Nitrogen 4 mg/dL (8-26) 4 mg/dL (8-26) Creatinine 0.9 mg/dL (0.7-1.3) 1.0 mg/dL (0.7-1.3) Estimated GFR (Cockcroft-Gault) 83.9 74.3 Glucose Level 96 mg/dL (70-99) 89 mg/dL (70-99) Calcium Level 9.8 mg/dL (8.5-10.1) 9.9 mg/dL (8.5-10.1) Iron Level 14 ug/dL (65-175) Total Iron Binding Capacity 117 ug/dL (250-450) Iron Saturation 12 % (15-34) Vancomycin Level Trough 17.1 mcg/mL (10.0-20.0) Vancomycin Last Dose Date 08/23/18 Vancomycin Last Dose Time 2000 BUN/Creatinine Ratio 4 (6-20) Total Bilirubin 0.5 mg/dL (0.2-1.0) Aspartate Amino Transf (AST/SGOT) 18 U/L (15-37) Alanine Aminotransferase (ALT/SGPT) 15 U/L (16-63) Alkaline Phosphatase 61 U/L (46-116) Total Protein 6.9 g/dL (6.4-8.2) Albumin 1.7 g/dL (3.4-5.0) Albumin/Globulin Ratio 0.3 (1.0-1.7) Laboratory Tests Test 08/25/18 05:15 White Blood Count 10.1 x10^3/uL (4.0-11.0) Red Blood Count 3.49 x10^6/uL (4.30-5.70) Hemoglobin 9.0 g/dL (13.0-17.5) Hematocrit 28.0 % (39.0-53.0) Mean Corpuscular Volume 80 fL (79-100) Mean Corpuscular Hemoglobin 26 pg (25-35) Mean Corpuscular Hemoglobin Concent 32 g/dL (31-37) Red Cell Distribution Width 15.9 % (11.5-14.5) Platelet Count 346 x10^3/uL (140-400) Neutrophils (%) (Auto) 72 % (31-73) Lymphocytes (%) (Auto) 16 % (24-48) Monocytes (%) (Auto) 8 % (0-9) Eosinophils (%) (Auto) 3 % (0-3) Basophils (%) (Auto) 1 % (0-3) Neutrophils # (Auto) 7.3 x10^3uL (1.8-7.7) Lymphocytes # (Auto) 1.6 x10^3/uL (1.0-4.8) Monocytes # (Auto) 0.8 x10^3/uL (0.0-1.1) Eosinophils # (Auto) 0.3 x10^3/uL (0.0-0.7) Basophils # (Auto) 0.1 x10^3/uL (0.0-0.2) Sodium Level 145 mmol/L (136-145) Potassium Level 3.8 mmol/L (3.5-5.1) Chloride Level 108 mmol/L (98-107) Carbon Dioxide Level 30 mmol/L (21-32) Anion Gap 7 (6-14) Blood Urea Nitrogen 4 mg/dL (8-26) Creatinine 1.0 mg/dL (0.7-1.3) Estimated GFR (Cockcroft-Gault) 74.3 BUN/Creatinine Ratio 4 (6-20) Glucose Level 89 mg/dL (70-99) Calcium Level 9.9 mg/dL (8.5-10.1) Total Bilirubin 0.5 mg/dL (0.2-1.0) Aspartate Amino Transf (AST/SGOT) 18 U/L (15-37) Alanine Aminotransferase (ALT/SGPT) 15 U/L (16-63) Alkaline Phosphatase 61 U/L (46-116) Total Protein 6.9 g/dL (6.4-8.2) Albumin 1.7 g/dL (3.4-5.0) Albumin/Globulin Ratio 0.3 (1.0-1.7) Microbiology 08/22/18 Blood Culture - Preliminary, Resulted NO GROWTH AFTER 2 DAYS 08/24/18 - Final, Complete Medications Current Medications Albuterol/ Ipratropium (Duoneb) 3 ml 1X ONCE NEB Last administered on at 16:18; Start 08/22/18 at 16:15; Stop 08/22/18 at 16:21; Status DC Sodium Chloride 1,000 ml @ 1,000 mls/hr Q1H IV Last administered on 08/22/18at 16:43; Start 08/22/18 at 16:30; Stop 08/22/18 at 17:29; Status DC Iohexol (Omnipaque 350 Mg/ml) 75 ml 1X ONCE IV Last administered on 08/22/18at 16:59; Start 08/22/18 at 16:45; Stop 08/22/18 at 16:48; Status DC Info (CONTRAST GIVEN -- Rx MONITORING) 1 each PRN DAILY PRN MC SEE COMMENTS; Start 08/22/18 at 17:00; Stop 08/24/18 at 16:59; Status DC Piperacillin Sod/ Tazobactam Sod (Zosyn Per Pharmacy) 1 each PRN DAILY PRN MC SEE COMMENTS; Start 08/22/18 at 18:00 Vancomycin HCl (Vanco Per Pharmacy) 1 each PRN DAILY PRN MC SEE COMMENTS Last administered on 08/24/18at 08:46; Start 08/22/18 at 18:00 Albuterol/ Ipratropium (Duoneb) 3 ml Q6HRS NEB Last administered on 08/25/18at 06:53; Start 08/22/18 at 18:00 Piperacillin Sod/ Tazobactam Sod 3.375 gm/Sodium Chloride 50 ml @ 100 mls/hr Q6HRS IV Last administered on 08/23/18at 14:19; Start 08/22/18 at 18:00; Stop at 16:38; Status DC Vancomycin HCl 1.75 gm/Sodium Chloride 500 ml @ 250 mls/hr 1X ONCE IV Last administered on 08/22/18at 19:46; Start 08/22/18 at 18:30; Stop 08/22/18 at 20:29 ; Status DC Acetaminophen (Tylenol) 500 mg PRN Q6HRS PRN PO MILD PAIN / TEMP Last administered on 08/25/18at 00:19; Start 08/22/18 at 18:45 Acetaminophen/ Codeine Phosphate (Tylenol #3) 1 tab PRN Q6HRS PRN PO MODERATE TO SEVERE PAIN; Start 08/22/18 at 18:45 Ondansetron HCl (Zofran) 4 mg PRN Q6HRS PRN IV NAUSEA/VOMITING; Start 08/22/18 at 18:45 Ondansetron HCl (Zofran Odt) 4 mg PRN Q6HRS PRN PO NAUSEA/VOMITING; Start 08/22 at 18:45 Temazepam (Restoril) 7.5 mg PRN QHS PRN PO INSOMNIA; Start 08/22/18 at 18:45 Sodium Chloride 1,000 ml @ 100 mls/hr 1X ONCE IV Last administered on at 22:38; Start 08/22/18 at 19:00; Stop 08/23/18 at 04:59; Status DC Guaifenesin (Robitussin Dm) 10 ml PRN Q6HRS PRN PO COUGH; Start 08/22/18 at 18: 45 Acetaminophen (Tylenol) 650 mg PRN Q6HRS PRN PO MILD PAIN / TEMP; Start at 17:00; Status UNV Nicotine (Nicoderm Cq 21mg) 1 patch PRN DAILY PRN TD SMOKING CESSATION; Start 08/22/18 at 19:15 Acetaminophen (Tylenol) 650 mg 1X ONCE PO Last administered on 08/22/18at 17:00 ; Start 08/22/18 at 19:30; Stop 08/22/18 at 19:31; Status DC Sodium Chloride 1,000 ml @ 1,000 mls/hr 1X ONCE IV Last administered on at 22:39; Start 08/22/18 at 21:00; Stop 08/22/18 at 21:59; Status DC Vancomycin HCl 1.25 gm/Sodium Chloride 250 ml @ 167 mls/hr Q12H IV Last administered on 08/25/18at 09:30; Start 08/23/18 at 08:00 Vancomycin HCl (Vancomycin Trough Level) 1 each 1X ONCE MC Last administered on 08/24/18at 07:30; Start 08/24/18 at 07:30; Stop 08/24/18 at 07:31; Status DC Potassium Chloride (Klor-Con) 40 meq 1X ONCE PO Last administered on at 18:18; Start 08/23/18 at 16:00; Stop 08/23/18 at 16:01; Status DC Piperacillin Sod/ Tazobactam Sod 4.5 gm/Sodium Chloride 100 ml @ 200 mls/hr Q6HRS IV Last administered on 08/25/18at 06:14; Start 08/23/18 at 18:00 Lactobacillus Rhamnosus (Culturelle) 1 cap BID PO Last administered on at 09:07; Start 08/23/18 at 21:00 Ringer's Solution 1,000 ml @ 50 mls/hr Q20H IV Last administered on 08/24/18at 11:41; Start 08/24/18 at 07:00; Stop 08/24/18 at 18:59; Status DC Potassium Chloride (Klor-Con) 40 meq 1X ONCE PO ; Start 08/24/18 at 08:30; Stop 08/24/18 at 08:31; Status Cancel Lidocaine HCl (Lidocaine 2% Viscous) 100 ml PRN 1X PRN MM MOUTH PAIN Last administered on 08/24/18at 11:30; Start 08/24/18 at 11:00; Stop 08/25/18 at 10:59 ; Status DC Lidocaine HCl (Lidocaine 1% 20ml Vial) 20 ml PRN 1X PRN INJ SEE COMMENTS Last administered on 08/24/18at 11:31; Start 08/24/18 at 11:00; Stop 08/25/18 at 10:59 ; Status DC Epinephrine HCl (Adrenalin) 1 mg PRN 1X PRN INJ SEE COMMENTS Last administered on 08/24/18at 12:46; Start 08/24/18 at 11:00; Stop 08/25/18 at 10:59; Status DC Lidocaine HCl 50 ml PRN 1X PRN MM SEE COMMENTS Last administered on 08/24/18at 11:30; Start 08/24/18 at 11:00; Stop 08/25/18 at 10:59; Status DC Epinephrine HCl (Adrenalin) 1 mg STK-MED ONCE .ROUTE ; Start 08/24/18 at 11:13; Stop 08/24/18 at 11:14; Status DC Lidocaine HCl (Lidocaine 1% 20ml Vial) 20 ml STK-MED ONCE .ROUTE ; Start at 11:13; Stop 08/24/18 at 11:14; Status DC Lidocaine HCl (Lidocaine 2% Viscous) 100 ml STK-MED ONCE .ROUTE ; Start at 11:13; Stop 08/24/18 at 11:14; Status DC Lidocaine HCl 50 ml STK-MED ONCE .ROUTE ; Start 08/24/18 at 11:13; Stop at 11:15; Status DC Propofol 20 ml @ As Directed STK-MED ONCE IV ; Start 08/24/18 at 12:06; Stop at 12:07; Status DC Epinephrine HCl (Adrenalin) 1 mg STK-MED ONCE .ROUTE ; Start 08/24/18 at 12:20; Stop 08/24/18 at 12:21; Status DC Potassium Chloride (Klor-Con) 40 meq 1X ONCE PO Last administered on at 20:06; Start 08/24/18 at 19:00; Stop 08/24/18 at 19:01; Status DC Vitals/I & O Vital Sign - Last 24 Hours 08/24/18 08/24/18 08/24/18 08/24/18 11:33 12:29 12:44 12:59 Temp 98.2 98.2 98.1 98.2 98.2 98.1 Pulse 94 96 86 Resp 18 18 18 B/P (MAP) 113/57 107/60 143/74 Pulse Ox 94 96 96 90 O2 Delivery Room Air Room Air Simple Mask Room Air O2 Flow Rate 8 4 08/24/18 08/24/18 08/24/18 08/24/18 13:14 13:39 15:00 19:00 Temp 98.7 98.7 99.7 98.7 98.7 99.7 Pulse 84 92 85 92 Resp 18 16 18 B/P (MAP) 139/72 138/84 (102) 122/56 (78) 125/62 (83) Pulse Ox 91 90 89 93 O2 Delivery Room Air Room Air Room Air Room Air 08/24/18 08/24/18 08/24/18 08/25/18 19:56 20:21 23:00 00:00 Temp 98.9 98.9 Pulse 77 Resp 18 B/P (MAP) 116/67 (83) Pulse Ox 92 95 O2 Delivery Room Air Room Air Room Air Nasal Cannula O2 Flow Rate 4.0 2.0 08/25/18 08/25/18 08/25/18 08/25/18 03:00 06:53 07:00 08:00 Temp 98.9 98.4 98.9 98.4 Pulse 65 65 Resp 18 18 B/P (MAP) 116/62 (80) 116/50 (72) Pulse Ox 96 97 94 O2 Delivery Room Air Nasal Cannula Nasal Cannula Room Air O2 Flow Rate 2.0 2.0 2.0 Intake and Output 08/24/18 08/24/18 08/25/18 15:00 23:00 07:00 Intake Total 600 ml 0 ml 175 ml Output Total 1100 ml 500 ml 500 ml Balance -500 ml -500 ml -325 ml Nutrition Consultation Dietary Evaluation: Recommendations by RD: Increase Calorie Intake, Protein supplementation Comments: liberlize diet to regular chocolate ensure pudding bid Expected Outcomes/Goals: to meet > 75% est nutr needs Interpretation of weight loss: >7.5% in 3 months Malnutrition Findings: Food and Nutrition Intake (Sev: <50% est energy req 5days Weight Status: Appropriate ANDRÉS FARAH III DO Aug 25, 2018 11:37
[2018-08-25] MEDS: VANCOMYCIN PER PHARMACY MC PRN (13:52)
--- NOTE | 2018-08-25 14:24 | PDOC ---
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 Bronch and bx done 08/24/2018 with endobroch lesion within 2 cm of nataliya. Bx results still pending. Stable since bronch. CT chest central mass with occlusion of Rt MSB. cavitating lesion lateral to this with distal lung collapse. patchy distal infiltrate inferiorly. Odd calcified left adrenal mass. Impression: Bronchogenic carcinoma of central right lung. Bx result pending at this time and should be available 08/26/2018. Difficult to ascertain limits of malignancy vs obstructive pneumonitis. Also need to identify jake involvement and assess for distant met disease. As he is relatively stable, I would like to pursue PET/CT first before finalizing treatment decision. Also I would like med onc input once bx result available. NERY TATUM MD Aug 25, 2018 14:24
[2018-08-25 15:00] VITALS: BP 124/84
--- NOTE | 2018-08-25 15:26 | NUR ---
Dr. Suárez spoke with Gene regarding his cancer diagnosis. showed gene his films. came in later and spoke with Gene. continues with zosyn and vancomycin. new iv site started in the right forearm.
--- NOTE | 2018-08-25 16:05 | NUR ---
Silvino coughed up small amount bright red phlegm
[2018-08-25 19:00] VITALS: BP 139/66
[2018-08-25 23:00] VITALS: BP 120/61
[2018-08-26] MEDS: PIPERACILLIN/TAZOBACTAM 4.5 GM in IV NORMAL SALINE 100ML 100 ML IV SCH ×2 (00:02→06:32)
[2018-08-26] MEDS: IPRATRPIUM/ALBUTEROL 0.5/2.5MG 3 ML NEBU. NEB SCH ×4 (00:07→19:59)
--- NOTE | 2018-08-26 01:18 | CONS ---
DATE OF CONSULTATION: 08/25/2018 REFERRING PHYSICIAN: Dr. Angel Arias. 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 He has just undergone bronchoscopy and biopsy on 08/24/2018. Biopsy results are still in progress. We were asked to see him regarding the role of radiation treatment in his care. ICD10 C34.81 HISTORY OF PRESENT ILLNESS: The patient is a 68-year-old gentleman who has noted progressive shortness of breath, resulting in some dizziness over the last 3-4 months. During this time, he has had occasional cough, a couple of periods of fevers and chills, 2 weeks of minimal hemoptysis with no real chest pain. No significant headache, nausea or vomiting. He has had a decline in his energy level, diminished taste and appetite and weight loss of 45 pounds from 199 to 154 pounds over the last 5 months. He has smoked 1.5-2 packs a day of cigarettes from age 12 to age 68 and recently stopped smoking 5 months ago. On evaluation here, CT scan of the chest on 08/22/2018 revealed obstruction of the proximal right main stem bronchus, adjacent to this was a cavitating mass measuring 9 x 10 x 8.3 cm, distal to this was right upper lobe lung collapse and inferior to that patchy infiltrate. There were small mediastinal lymph nodes, most prominently in the subcarinal region. There was an odd calcified lesion in the left adrenal gland, no convincing evidence for metastatic disease in the visualized liver or left lung. He underwent bronchoscopy here on 08/24/[address] Arias. He noted there was an endobronchial tumor causing near total occlusion of the right main stem bronchus within 2 cm of the nataliya with a very tiny opening leading to the bronchus intermedius. There was galen pus coming through this orifice, which was suctioned. Biopsies and washings were obtained as well as cytology and culture. Biopsy results are still pending at this time. PAST MEDICAL HISTORY: Unremarkable. He has rarely been hospitalized. He has had no significant surgeries. ALLERGIES: None. MEDICATIONS: See hospital list. SOCIAL HISTORY: Lives with his common-law , Kevin Serrano, for 30 years. Three children living in [place] with whom he has little relationship. He lives in [place], [place]. He recently quit working 5-6 months ago due to fatigue and shortness of breath. 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 Distant history of alcohol intake. Previously, enjoyed working on cars and building kitchen furniture. FAMILY HISTORY: Mother had lung cancer. Sister had a history of malignancy with treatment and recurrence and from this at age 53, primary site not known to the patient. PHYSICAL EXAMINATION: GENERAL: Revealed a pleasant, conversant gentleman in no acute distress. He looked older than his chronologic age. HEENT: Remarkable for very poor dentition with fractured and absent teeth. No scleral icterus. LYMPH NODES: He had no palpable cervical or supraclavicular adenopathy. LUNGS: Bilateral scattered wheezes and rhonchi, worse in the right field. HEART: Regular. No murmur, no gallop. ABDOMEN: Unremarkable. EXTREMITIES: Revealed no clubbing, cyanosis or edema. LABORATORY STUDIES: From 08/25/2018, hemoglobin 9.0, white count 10,100, platelet count 346,000. Chemistry panel was essentially within normal limits. Creatinine 1.0, calcium 9.9. Normal liver function tests, diminished albumin at 1.7. ASSESSMENT AND PLAN: In summary, my impression is that of likely stage 3 or higher bronchogenic carcinoma of the proximal right main stem bronchus. He has near occlusion of the right main stem bronchus with cavitating lesion lateral to this which may be due to infection or malignancy or both. He has distal atelectasis and infiltrate seen elsewhere in the right lung. He has an odd calcified lesion in the left adrenal gland of uncertain significance. He is stable following bronchoscopy. To ascertain the limits of his primary lesion to assist in treatment planning, a baseline PET/CT scan will be useful. This would also be valuable in staging and screening for any occult metastatic disease as this would affect overall treatment consideration as well. We currently await his outcome of his biopsy. In addition, I await the opinion from our medical oncologist, Dr. Christian or Dr. Talamantes regarding systemic treatment, which will also be contingent on the completion of his staging. Thank you again for allowing us to participate in his evaluation. NERY TATUM MD DR: KAYLENE/alice JOB#: [id number] / [id number] RUEL
[2018-08-26 03:12] VITALS: BP 129/65
[2018-08-26 05:40] LABS: BASO # 0.1 x10^3/uL (0.0-0.2); BASO % 1 % (0-3); EOS # 0.3 x10^3/uL (0.0-0.7); EOS % 3 % (0-3); HEMATOCRIT 30.1 % (39.0-53.0); HEMOGLOBIN 9.2 g/dL (13.0-17.5); LYMPH # 1.3 x10^3/uL (1.0-4.8); LYMPH % 10 % (24-48); MEAN CORPUSCULAR HEMOGLOBIN 25 pg (25-35); MEAN CORPUSCULAR HGB CONC 31 g/dL (31-37); MEAN CORPUSCULAR VOLUME 81 fL (79-100); MONO # 0.9 x10^3/uL (0.0-1.1); MONO % 7 % (0-9); NEUT # 10.1 x10^3uL (1.8-7.7); NEUT % 79 % (31-73); PLATELET COUNT 383 x10^3/uL (140-400); RED BLOOD COUNT 3.74 x10^6/uL (4.30-5.70); RED CELL DISTRIBUTION WIDTH 15.4 % (11.5-14.5); WHITE BLOOD COUNT 12.8 x10^3/uL (4.0-11.0)
[2018-08-26 06:15] LABS: ALBUMIN 1.8 g/dL (3.4-5.0); ALBUMIN/GLOBULIN RATIO 0.3 (1.0-1.7); CREATININE 1.3 mg/dL (0.7-1.3); GFR 54.9; POTASSIUM 3.5 mmol/L (3.5-5.1); TOTAL BILIRUBIN 0.5 mg/dL (0.2-1.0); TOTAL PROTEIN 7.4 g/dL (6.4-8.2)
[2018-08-26 07:15] VITALS: BP 141/72
[2018-08-26] MEDS: VANCOMYCIN 1.25 GM in IV NORMAL SALINE 250ML 250 ML IV SCH (08:00)
--- NOTE | 2018-08-26 08:36 | PDOC ---
Infectious Disease Note Subjective Subjective awake, feeling ok ROS ROS no n/v/d/sob Vital Sign Vital Signs Vital Signs Date Time Temp Pulse Resp B/P (MAP) Pulse Ox O2 Delivery O2 Flow Rate FiO2 08/26/18 07:28 Nasal Cannula 1.0 08/26/18 07:15 98.4 80 18 141/72 (95) 94 98.4 Physical Exam PHYSICAL EXAM GENERAL: Alert, oriented gentleman, not in any distress. VITAL SIGNS: Stable, afebrile. HEENT: NAD. NECK: Supple, no JVP, no lymphadenopathy. LUNGS: Clear. HEART: S1, S2 regular. ABDOMEN: Benign. EXTREMITIES: No edema or cyanosis. SKIN: Unremarkable. NEUROLOGIC: The patient is neurologically intact. Labs Lab Laboratory Tests Test 08/26/18 04:00 White Blood Count 12.8 x10^3/uL (4.0-11.0) Red Blood Count 3.74 x10^6/uL (4.30-5.70) Hemoglobin 9.2 g/dL (13.0-17.5) Hematocrit 30.1 % (39.0-53.0) Mean Corpuscular Volume 81 fL (79-100) Mean Corpuscular Hemoglobin 25 pg (25-35) Mean Corpuscular Hemoglobin Concent 31 g/dL (31-37) Red Cell Distribution Width 15.4 % (11.5-14.5) Platelet Count 383 x10^3/uL (140-400) Neutrophils (%) (Auto) 79 % (31-73) Lymphocytes (%) (Auto) 10 % (24-48) Monocytes (%) (Auto) 7 % (0-9) Eosinophils (%) (Auto) 3 % (0-3) Basophils (%) (Auto) 1 % (0-3) Neutrophils # (Auto) 10.1 x10^3uL (1.8-7.7) Lymphocytes # (Auto) 1.3 x10^3/uL (1.0-4.8) Monocytes # (Auto) 0.9 x10^3/uL (0.0-1.1) Eosinophils # (Auto) 0.3 x10^3/uL (0.0-0.7) Basophils # (Auto) 0.1 x10^3/uL (0.0-0.2) Sodium Level 145 mmol/L (136-145) Potassium Level 3.5 mmol/L (3.5-5.1) Chloride Level 107 mmol/L (98-107) Carbon Dioxide Level 28 mmol/L (21-32) Anion Gap 10 (6-14) Blood Urea Nitrogen 4 mg/dL (8-26) Creatinine 1.3 mg/dL (0.7-1.3) Estimated GFR (Cockcroft-Gault) 54.9 BUN/Creatinine Ratio 3 (6-20) Glucose Level 94 mg/dL (70-99) Calcium Level 10.0 mg/dL (8.5-10.1) Total Bilirubin 0.5 mg/dL (0.2-1.0) Aspartate Amino Transf (AST/SGOT) 17 U/L (15-37) Alanine Aminotransferase (ALT/SGPT) 15 U/L (16-63) Alkaline Phosphatase 60 U/L (46-116) Total Protein 7.4 g/dL (6.4-8.2) Albumin 1.8 g/dL (3.4-5.0) Albumin/Globulin Ratio 0.3 (1.0-1.7) Micro GRAM STAIN WHITE BLOOD CELLS Final Few GRAM STAIN EPITHELIAL CELLS Final Few GRAM STAIN RESULT 1 Final Comment Few gram positive cocci GRAM STAIN EVALUATION Final Comment This specimen is of good quality and is acceptable for routine bacterial culture. Performed at: - [facility], [place], [place] [id number] Framing Carpenter: JUAN Tyler MD, Phone: [phone] SPUTUM CULTURE-LC PENDING Beta hemolytic Streptococcus, group C Objective Assessment Cavitary pneumonia , Pulmonary mass suspected malignancy and post obstructive pneumonia Wt loss Hemoptysis Smoking Plan Plan of Care d/c vanc and zosyn, start po augmentin for 2 wks check biopsy ok to d/c from ID stand point AUGUSTA INFANTE MD Aug 26, 2018 08:36
--- NOTE | 2018-08-26 10:41 | PDOC ---
PROGRESS NOTES Chief Complaint Chief Complaint Cavitary pneumonia in the right upper lobe - likely 2/2 lung cancer totally occluding endobronchial mass seen on bronchoscopy, biopsy showed squamous cell carcinoma Hemoptysis Significant unintentional weight loss Parenchymal infiltrate in the right lower lobe - likely a secondary pneumonia, will treat empirically as community acquired Likely chronic obstructive pulmonary disease - likely is severe Anemia History of Present Illness History of Present Illness Mr. Betancourt presented with hemoptysis, significant weight loss, found to have cavitary lesion RUL. Pulm and ID following. Blood cultures 2 x negative for 24 hours. Patient was seen and examined at bedside today. Biopsy shows squamous cell carcinoma, case discussed with Dr. Luna. Diagnosis discussed with patient. Patient denies fever, chills. Wally pr'ed. Vitals Vitals Vital Signs Date Time Temp Pulse Resp B/P (MAP) Pulse Ox O2 Delivery O2 Flow Rate FiO2 08/26/18 07:28 Nasal Cannula 1.0 08/26/18 07:15 98.4 80 18 141/72 (95) 94 98.4 Physical Exam General: Alert, Oriented X3, Cooperative, No acute distress Heart: Regular rate, No murmurs Lungs: Clear, Other (decrease right) Abdomen: Normal bowel sounds, Soft, No tenderness, No hepatosplenomegaly, No masses Extremities: No clubbing, No cyanosis, No edema, Normal pulses, No tenderness/ swelling Skin: No rashes, No significant lesion Labs LABS Laboratory Tests Test 08/26/18 04:00 White Blood Count 12.8 x10^3/uL (4.0-11.0) Red Blood Count 3.74 x10^6/uL (4.30-5.70) Hemoglobin 9.2 g/dL (13.0-17.5) Hematocrit 30.1 % (39.0-53.0) Mean Corpuscular Volume 81 fL (79-100) Mean Corpuscular Hemoglobin 25 pg (25-35) Mean Corpuscular Hemoglobin Concent 31 g/dL (31-37) Red Cell Distribution Width 15.4 % (11.5-14.5) Platelet Count 383 x10^3/uL (140-400) Neutrophils (%) (Auto) 79 % (31-73) Lymphocytes (%) (Auto) 10 % (24-48) Monocytes (%) (Auto) 7 % (0-9) Eosinophils (%) (Auto) 3 % (0-3) Basophils (%) (Auto) 1 % (0-3) Neutrophils # (Auto) 10.1 x10^3uL (1.8-7.7) Lymphocytes # (Auto) 1.3 x10^3/uL (1.0-4.8) Monocytes # (Auto) 0.9 x10^3/uL (0.0-1.1) Eosinophils # (Auto) 0.3 x10^3/uL (0.0-0.7) Basophils # (Auto) 0.1 x10^3/uL (0.0-0.2) Sodium Level 145 mmol/L (136-145) Potassium Level 3.5 mmol/L (3.5-5.1) Chloride Level 107 mmol/L (98-107) Carbon Dioxide Level 28 mmol/L (21-32) Anion Gap 10 (6-14) Blood Urea Nitrogen 4 mg/dL (8-26) Creatinine 1.3 mg/dL (0.7-1.3) Estimated GFR (Cockcroft-Gault) 54.9 BUN/Creatinine Ratio 3 (6-20) Glucose Level 94 mg/dL (70-99) Calcium Level 10.0 mg/dL (8.5-10.1) Total Bilirubin 0.5 mg/dL (0.2-1.0) Aspartate Amino Transf (AST/SGOT) 17 U/L (15-37) Alanine Aminotransferase (ALT/SGPT) 15 U/L (16-63) Alkaline Phosphatase 60 U/L (46-116) Total Protein 7.4 g/dL (6.4-8.2) Albumin 1.8 g/dL (3.4-5.0) Albumin/Globulin Ratio 0.3 (1.0-1.7) Review of Systems Review of Systems Reports nonproductive cough Denies shortness of breath Denies fever/chills Assessment and Plan Assessmemt and Plan Problems Medical Problems: (1) Cavitary lesion of lung Status: Acute (2) Pneumonia Status: Acute Assessment: Cavitary pneumonia in the right upper lobe - likely 2/2 lung cancer totally occluding endobronchial mass seen on bronchoscopy, biopsy showed squamous cell carcinoma Hemoptysis Significant unintentional weight loss Parenchymal infiltrate in the right lower lobe - likely a secondary pneumonia, will treat empirically as community acquired Likely chronic obstructive pulmonary disease - likely is severe Anemia Plan: Appreciate heme/onc input as far as treatment plan Monitor respiratory status Appreciate ID input, joe and donya dc'ed PT/OT Emmett Review labs in the am - CBC and CMP Comment Review of Relevant I have reviewed the following items tristan (where applicable) has been applied. Labs Laboratory Tests Test 08/25/18 05:15 08/26/18 04:00 White Blood Count 10.1 x10^3/uL (4.0-11.0) 12.8 x10^3/uL (4.0-11.0) Red Blood Count 3.49 x10^6/uL (4.30-5.70) 3.74 x10^6/uL (4.30-5.70) Hemoglobin 9.0 g/dL (13.0-17.5) 9.2 g/dL (13.0-17.5) Hematocrit 28.0 % (39.0-53.0) 30.1 % (39.0-53.0) Mean Corpuscular Volume 80 fL (79-100) 81 fL (79-100) Mean Corpuscular Hemoglobin 26 pg (25-35) 25 pg (25-35) Mean Corpuscular Hemoglobin Concent 32 g/dL (31-37) 31 g/dL (31-37) Red Cell Distribution Width 15.9 % (11.5-14.5) 15.4 % (11.5-14.5) Platelet Count 346 x10^3/uL (140-400) 383 x10^3/uL (140-400) Neutrophils (%) (Auto) 72 % (31-73) 79 % (31-73) Lymphocytes (%) (Auto) 16 % (24-48) 10 % (24-48) Monocytes (%) (Auto) 8 % (0-9) 7 % (0-9) Eosinophils (%) (Auto) 3 % (0-3) 3 % (0-3) Basophils (%) (Auto) 1 % (0-3) 1 % (0-3) Neutrophils # (Auto) 7.3 x10^3uL (1.8-7.7) 10.1 x10^3uL (1.8-7.7) Lymphocytes # (Auto) 1.6 x10^3/uL (1.0-4.8) 1.3 x10^3/uL (1.0-4.8) Monocytes # (Auto) 0.8 x10^3/uL (0.0-1.1) 0.9 x10^3/uL (0.0-1.1) Eosinophils # (Auto) 0.3 x10^3/uL (0.0-0.7) 0.3 x10^3/uL (0.0-0.7) Basophils # (Auto) 0.1 x10^3/uL (0.0-0.2) 0.1 x10^3/uL (0.0-0.2) Sodium Level 145 mmol/L (136-145) 145 mmol/L (136-145) Potassium Level 3.8 mmol/L (3.5-5.1) 3.5 mmol/L (3.5-5.1) Chloride Level 108 mmol/L (98-107) 107 mmol/L (98-107) Carbon Dioxide Level 30 mmol/L (21-32) 28 mmol/L (21-32) Anion Gap 7 (6-14) 10 (6-14) Blood Urea Nitrogen 4 mg/dL (8-26) 4 mg/dL (8-26) Creatinine 1.0 mg/dL (0.7-1.3) 1.3 mg/dL (0.7-1.3) Estimated GFR (Cockcroft-Gault) 74.3 54.9 BUN/Creatinine Ratio 4 (6-20) 3 (6-20) Glucose Level 89 mg/dL (70-99) 94 mg/dL (70-99) Calcium Level 9.9 mg/dL (8.5-10.1) 10.0 mg/dL (8.5-10.1) Total Bilirubin 0.5 mg/dL (0.2-1.0) 0.5 mg/dL (0.2-1.0) Aspartate Amino Transf (AST/SGOT) 18 U/L (15-37) 17 U/L (15-37) Alanine Aminotransferase (ALT/SGPT) 15 U/L (16-63) 15 U/L (16-63) Alkaline Phosphatase 61 U/L (46-116) 60 U/L (46-116) Total Protein 6.9 g/dL (6.4-8.2) 7.4 g/dL (6.4-8.2) Albumin 1.7 g/dL (3.4-5.0) 1.8 g/dL (3.4-5.0) Albumin/Globulin Ratio 0.3 (1.0-1.7) 0.3 (1.0-1.7) Laboratory Tests Test 08/26/18 04:00 White Blood Count 12.8 x10^3/uL (4.0-11.0) Red Blood Count 3.74 x10^6/uL (4.30-5.70) Hemoglobin 9.2 g/dL (13.0-17.5) Hematocrit 30.1 % (39.0-53.0) Mean Corpuscular Volume 81 fL (79-100) Mean Corpuscular Hemoglobin 25 pg (25-35) Mean Corpuscular Hemoglobin Concent 31 g/dL (31-37) Red Cell Distribution Width 15.4 % (11.5-14.5) Platelet Count 383 x10^3/uL (140-400) Neutrophils (%) (Auto) 79 % (31-73) Lymphocytes (%) (Auto) 10 % (24-48) Monocytes (%) (Auto) 7 % (0-9) Eosinophils (%) (Auto) 3 % (0-3) Basophils (%) (Auto) 1 % (0-3) Neutrophils # (Auto) 10.1 x10^3uL (1.8-7.7) Lymphocytes # (Auto) 1.3 x10^3/uL (1.0-4.8) Monocytes # (Auto) 0.9 x10^3/uL (0.0-1.1) Eosinophils # (Auto) 0.3 x10^3/uL (0.0-0.7) Basophils # (Auto) 0.1 x10^3/uL (0.0-0.2) Sodium Level 145 mmol/L (136-145) Potassium Level 3.5 mmol/L (3.5-5.1) Chloride Level 107 mmol/L (98-107) Carbon Dioxide Level 28 mmol/L (21-32) Anion Gap 10 (6-14) Blood Urea Nitrogen 4 mg/dL (8-26) Creatinine 1.3 mg/dL (0.7-1.3) Estimated GFR (Cockcroft-Gault) 54.9 BUN/Creatinine Ratio 3 (6-20) Glucose Level 94 mg/dL (70-99) Calcium Level 10.0 mg/dL (8.5-10.1) Total Bilirubin 0.5 mg/dL (0.2-1.0) Aspartate Amino Transf (AST/SGOT) 17 U/L (15-37) Alanine Aminotransferase (ALT/SGPT) 15 U/L (16-63) Alkaline Phosphatase 60 U/L (46-116) Total Protein 7.4 g/dL (6.4-8.2) Albumin 1.8 g/dL (3.4-5.0) Albumin/Globulin Ratio 0.3 (1.0-1.7) Microbiology 08/22/18 Blood Culture - Preliminary, Resulted NO GROWTH AFTER 3 DAYS 08/24/18 AFB Specimen Processing Tissue - Final, Resulted 08/24/18 Acid Fast Bacilli Culture, Resulted Pending 08/24/18 Gram Stain - Final, Resulted 08/24/18 Fungal Culture, Resulted Pending 08/24/18 Fungal Culture Result 1, Resulted Pending Medications Current Medications Albuterol/ Ipratropium (Duoneb) 3 ml 1X ONCE NEB Last administered on at 16:18; Start 08/22/18 at 16:15; Stop 08/22/18 at 16:21; Status DC Sodium Chloride 1,000 ml @ 1,000 mls/hr Q1H IV Last administered on 08/22/18at 16:43; Start 08/22/18 at 16:30; Stop 08/22/18 at 17:29; Status DC Iohexol (Omnipaque 350 Mg/ml) 75 ml 1X ONCE IV Last administered on 08/22/18at 16:59; Start 08/22/18 at 16:45; Stop 08/22/18 at 16:48; Status DC Info (CONTRAST GIVEN -- Rx MONITORING) 1 each PRN DAILY PRN MC SEE COMMENTS; Start 08/22/18 at 17:00; Stop 08/24/18 at 16:59; Status DC Piperacillin Sod/ Tazobactam Sod (Zosyn Per Pharmacy) 1 each PRN DAILY PRN MC SEE COMMENTS; Start 08/22/18 at 18:00 Vancomycin HCl (Vanco Per Pharmacy) 1 each PRN DAILY PRN MC SEE COMMENTS Last administered on 08/25/18at 13:52; Start 08/22/18 at 18:00; Stop 08/26/18 at 09:13 ; Status DC Albuterol/ Ipratropium (Duoneb) 3 ml Q6HRS NEB Last administered on 08/26/18at 07:28; Start 08/22/18 at 18:00 Piperacillin Sod/ Tazobactam Sod 3.375 gm/Sodium Chloride 50 ml @ 100 mls/hr Q6HRS IV Last administered on 08/23/18at 14:19; Start 08/22/18 at 18:00; Stop at 16:38; Status DC Vancomycin HCl 1.75 gm/Sodium Chloride 500 ml @ 250 mls/hr 1X ONCE IV Last administered on 08/22/18at 19:46; Start 08/22/18 at 18:30; Stop 08/22/18 at 20:29 ; Status DC Acetaminophen (Tylenol) 500 mg PRN Q6HRS PRN PO MILD PAIN / TEMP Last administered on 08/25/18at 19:43; Start 08/22/18 at 18:45 Acetaminophen/ Codeine Phosphate (Tylenol #3) 1 tab PRN Q6HRS PRN PO MODERATE TO SEVERE PAIN; Start 08/22/18 at 18:45 Ondansetron HCl (Zofran) 4 mg PRN Q6HRS PRN IV NAUSEA/VOMITING; Start 08/22/18 at 18:45 Ondansetron HCl (Zofran Odt) 4 mg PRN Q6HRS PRN PO NAUSEA/VOMITING; Start 08/22 at 18:45 Temazepam (Restoril) 7.5 mg PRN QHS PRN PO INSOMNIA; Start 08/22/18 at 18:45 Sodium Chloride 1,000 ml @ 100 mls/hr 1X ONCE IV Last administered on at 22:38; Start 08/22/18 at 19:00; Stop 08/23/18 at 04:59; Status DC Guaifenesin (Robitussin Dm) 10 ml PRN Q6HRS PRN PO COUGH; Start 08/22/18 at 18: 45 Acetaminophen (Tylenol) 650 mg PRN Q6HRS PRN PO MILD PAIN / TEMP; Start at 17:00; Status UNV Nicotine (Nicoderm Cq 21mg) 1 patch PRN DAILY PRN TD SMOKING CESSATION; Start 08/22/18 at 19:15 Acetaminophen (Tylenol) 650 mg 1X ONCE PO Last administered on 08/22/18at 17:00 ; Start 08/22/18 at 19:30; Stop 08/22/18 at 19:31; Status DC Sodium Chloride 1,000 ml @ 1,000 mls/hr 1X ONCE IV Last administered on at 22:39; Start 08/22/18 at 21:00; Stop 08/22/18 at 21:59; Status DC Vancomycin HCl 1.25 gm/Sodium Chloride 250 ml @ 167 mls/hr Q12H IV Last administered on 08/25/18at 20:34; Start 08/23/18 at 08:00; Stop 08/26/18 at 09:11 ; Status DC Vancomycin HCl (Vancomycin Trough Level) 1 each 1X ONCE MC Last administered on 08/24/18at 07:30; Start 08/24/18 at 07:30; Stop 08/24/18 at 07:31; Status DC Potassium Chloride (Klor-Con) 40 meq 1X ONCE PO Last administered on at 18:18; Start 08/23/18 at 16:00; Stop 08/23/18 at 16:01; Status DC Piperacillin Sod/ Tazobactam Sod 4.5 gm/Sodium Chloride 100 ml @ 200 mls/hr Q6HRS IV Last administered on 08/26/18at 06:32; Start 08/23/18 at 18:00; Stop at 09:11; Status DC Lactobacillus Rhamnosus (Culturelle) 1 cap BID PO Last administered on at 20:34; Start 08/23/18 at 21:00 Ringer's Solution 1,000 ml @ 50 mls/hr Q20H IV Last administered on 08/24/18at 11:41; Start 08/24/18 at 07:00; Stop 08/24/18 at 18:59; Status DC Potassium Chloride (Klor-Con) 40 meq 1X ONCE PO ; Start 08/24/18 at 08:30; Stop 08/24/18 at 08:31; Status Cancel Lidocaine HCl (Lidocaine 2% Viscous) 100 ml PRN 1X PRN MM MOUTH PAIN Last administered on 08/24/18at 11:30; Start 08/24/18 at 11:00; Stop 08/25/18 at 10:59 ; Status DC Lidocaine HCl (Lidocaine 1% 20ml Vial) 20 ml PRN 1X PRN INJ SEE COMMENTS Last administered on 08/24/18at 11:31; Start 08/24/18 at 11:00; Stop 08/25/18 at 10:59 ; Status DC Epinephrine HCl (Adrenalin) 1 mg PRN 1X PRN INJ SEE COMMENTS Last administered on 08/24/18at 12:46; Start 08/24/18 at 11:00; Stop 08/25/18 at 10:59; Status DC Lidocaine HCl 50 ml PRN 1X PRN MM SEE COMMENTS Last administered on 08/24/18at 11:30; Start 08/24/18 at 11:00; Stop 08/25/18 at 10:59; Status DC Epinephrine HCl (Adrenalin) 1 mg STK-MED ONCE .ROUTE ; Start 08/24/18 at 11:13; Stop 08/24/18 at 11:14; Status DC Lidocaine HCl (Lidocaine 1% 20ml Vial) 20 ml STK-MED ONCE .ROUTE ; Start at 11:13; Stop 08/24/18 at 11:14; Status DC Lidocaine HCl (Lidocaine 2% Viscous) 100 ml STK-MED ONCE .ROUTE ; Start at 11:13; Stop 08/24/18 at 11:14; Status DC Lidocaine HCl 50 ml STK-MED ONCE .ROUTE ; Start 08/24/18 at 11:13; Stop at 11:15; Status DC Propofol 20 ml @ As Directed STK-MED ONCE IV ; Start 08/24/18 at 12:06; Stop at 12:07; Status DC Epinephrine HCl (Adrenalin) 1 mg STK-MED ONCE .ROUTE ; Start 08/24/18 at 12:20; Stop 08/24/18 at 12:21; Status DC Potassium Chloride (Klor-Con) 40 meq 1X ONCE PO Last administered on at 20:06; Start 08/24/18 at 19:00; Stop 08/24/18 at 19:01; Status DC Amoxicillin/ Clavulanate Potassium (Augmentin 875/ 125mg) 1 tab BID PO ; Start 08/26/18 at 21:00 Vitals/I & O Vital Sign - Last 24 Hours 08/25/18 08/25/18 08/25/18 08/25/18 11:00 11:59 15:00 19:00 Temp 98.6 99.4 100.1 98.6 99.4 100.1 Pulse 69 69 79 Resp 18 18 20 B/P (MAP) 122/71 (88) 124/84 (97) 139/66 (90) Pulse Ox 96 94 93 O2 Delivery Nasal Cannula Nasal Cannula Room Air Nasal Cannula O2 Flow Rate 2.0 1.0 08/25/18 08/25/18 08/25/18 08/26/18 19:38 19:58 23:00 00:06 Temp 98.8 98.8 Pulse 71 Resp 20 B/P (MAP) 120/61 (80) Pulse Ox 95 O2 Delivery Nasal Cannula Room Air Nasal Cannula Nasal Cannula O2 Flow Rate 1.0 2.0 1.0 08/26/18 08/26/18 08/26/18 03:12 07:15 07:28 Temp 98.4 98.4 98.4 98.4 Pulse 68 80 Resp 20 18 B/P (MAP) 129/65 (86) 141/72 (95) Pulse Ox 92 94 O2 Delivery Nasal Cannula Nasal Cannula Nasal Cannula O2 Flow Rate 2.0 1.0 Intake and Output 08/25/18 08/25/18 08/26/18 14:59 22:59 06:59 Intake Total 875 ml 350 ml 350 ml Output Total 300 ml Balance 875 ml 350 ml 50 ml Nutrition Consultation Dietary Evaluation: Recommendations by RD: Increase Calorie Intake, Protein supplementation Comments: liberlize diet to regular chocolate ensure pudding bid Expected Outcomes/Goals: to meet > 75% est nutr needs Interpretation of weight loss: >7.5% in 3 months Malnutrition Findings: Food and Nutrition Intake (Sev: <50% est energy req 5days Weight Status: Appropriate ANDRÉS FARAH III DO Aug 26, 2018 10:41
[2018-08-26] MEDS: LACTOBACILLUS RHAMNOSUS GG 1 CAPSULE. PO SCH ×2 (11:12→20:48)
[2018-08-26 11:19] VITALS: BP 125/63
--- NOTE | 2018-08-26 12:21 | PDOC ---
PULMONARY PROGRESS NOTES Subjective no soa Vitals Vital Signs Date Time Temp Pulse Resp B/P (MAP) Pulse Ox O2 Delivery O2 Flow Rate FiO2 08/26/18 11:19 98.8 72 18 125/63 (83) 96 Nasal Cannula 2.0 98.8 General: Alert, No acute distress Lungs: Other (decrease right) Cardiovascular: S1 Abdomen: Soft Neuro Exam: Alert Extremities: No Edema Skin: Warm Labs Laboratory Tests Test 08/25/18 05:15 08/26/18 04:00 White Blood Count 10.1 x10^3/uL (4.0-11.0) 12.8 x10^3/uL (4.0-11.0) Red Blood Count 3.49 x10^6/uL (4.30-5.70) 3.74 x10^6/uL (4.30-5.70) Hemoglobin 9.0 g/dL (13.0-17.5) 9.2 g/dL (13.0-17.5) Hematocrit 28.0 % (39.0-53.0) 30.1 % (39.0-53.0) Mean Corpuscular Volume 80 fL (79-100) 81 fL (79-100) Mean Corpuscular Hemoglobin 26 pg (25-35) 25 pg (25-35) Mean Corpuscular Hemoglobin Concent 32 g/dL (31-37) 31 g/dL (31-37) Red Cell Distribution Width 15.9 % (11.5-14.5) 15.4 % (11.5-14.5) Platelet Count 346 x10^3/uL (140-400) 383 x10^3/uL (140-400) Neutrophils (%) (Auto) 72 % (31-73) 79 % (31-73) Lymphocytes (%) (Auto) 16 % (24-48) 10 % (24-48) Monocytes (%) (Auto) 8 % (0-9) 7 % (0-9) Eosinophils (%) (Auto) 3 % (0-3) 3 % (0-3) Basophils (%) (Auto) 1 % (0-3) 1 % (0-3) Neutrophils # (Auto) 7.3 x10^3uL (1.8-7.7) 10.1 x10^3uL (1.8-7.7) Lymphocytes # (Auto) 1.6 x10^3/uL (1.0-4.8) 1.3 x10^3/uL (1.0-4.8) Monocytes # (Auto) 0.8 x10^3/uL (0.0-1.1) 0.9 x10^3/uL (0.0-1.1) Eosinophils # (Auto) 0.3 x10^3/uL (0.0-0.7) 0.3 x10^3/uL (0.0-0.7) Basophils # (Auto) 0.1 x10^3/uL (0.0-0.2) 0.1 x10^3/uL (0.0-0.2) Sodium Level 145 mmol/L (136-145) 145 mmol/L (136-145) Potassium Level 3.8 mmol/L (3.5-5.1) 3.5 mmol/L (3.5-5.1) Chloride Level 108 mmol/L (98-107) 107 mmol/L (98-107) Carbon Dioxide Level 30 mmol/L (21-32) 28 mmol/L (21-32) Anion Gap 7 (6-14) 10 (6-14) Blood Urea Nitrogen 4 mg/dL (8-26) 4 mg/dL (8-26) Creatinine 1.0 mg/dL (0.7-1.3) 1.3 mg/dL (0.7-1.3) Estimated GFR (Cockcroft-Gault) 74.3 54.9 BUN/Creatinine Ratio 4 (6-20) 3 (6-20) Glucose Level 89 mg/dL (70-99) 94 mg/dL (70-99) Calcium Level 9.9 mg/dL (8.5-10.1) 10.0 mg/dL (8.5-10.1) Total Bilirubin 0.5 mg/dL (0.2-1.0) 0.5 mg/dL (0.2-1.0) Aspartate Amino Transf (AST/SGOT) 18 U/L (15-37) 17 U/L (15-37) Alanine Aminotransferase (ALT/SGPT) 15 U/L (16-63) 15 U/L (16-63) Alkaline Phosphatase 61 U/L (46-116) 60 U/L (46-116) Total Protein 6.9 g/dL (6.4-8.2) 7.4 g/dL (6.4-8.2) Albumin 1.7 g/dL (3.4-5.0) 1.8 g/dL (3.4-5.0) Albumin/Globulin Ratio 0.3 (1.0-1.7) 0.3 (1.0-1.7) Laboratory Tests Test 08/26/18 04:00 White Blood Count 12.8 x10^3/uL (4.0-11.0) Red Blood Count 3.74 x10^6/uL (4.30-5.70) Hemoglobin 9.2 g/dL (13.0-17.5) Hematocrit 30.1 % (39.0-53.0) Mean Corpuscular Volume 81 fL (79-100) Mean Corpuscular Hemoglobin 25 pg (25-35) Mean Corpuscular Hemoglobin Concent 31 g/dL (31-37) Red Cell Distribution Width 15.4 % (11.5-14.5) Platelet Count 383 x10^3/uL (140-400) Neutrophils (%) (Auto) 79 % (31-73) Lymphocytes (%) (Auto) 10 % (24-48) Monocytes (%) (Auto) 7 % (0-9) Eosinophils (%) (Auto) 3 % (0-3) Basophils (%) (Auto) 1 % (0-3) Neutrophils # (Auto) 10.1 x10^3uL (1.8-7.7) Lymphocytes # (Auto) 1.3 x10^3/uL (1.0-4.8) Monocytes # (Auto) 0.9 x10^3/uL (0.0-1.1) Eosinophils # (Auto) 0.3 x10^3/uL (0.0-0.7) Basophils # (Auto) 0.1 x10^3/uL (0.0-0.2) Sodium Level 145 mmol/L (136-145) Potassium Level 3.5 mmol/L (3.5-5.1) Chloride Level 107 mmol/L (98-107) Carbon Dioxide Level 28 mmol/L (21-32) Anion Gap 10 (6-14) Blood Urea Nitrogen 4 mg/dL (8-26) Creatinine 1.3 mg/dL (0.7-1.3) Estimated GFR (Cockcroft-Gault) 54.9 BUN/Creatinine Ratio 3 (6-20) Glucose Level 94 mg/dL (70-99) Calcium Level 10.0 mg/dL (8.5-10.1) Total Bilirubin 0.5 mg/dL (0.2-1.0) Aspartate Amino Transf (AST/SGOT) 17 U/L (15-37) Alanine Aminotransferase (ALT/SGPT) 15 U/L (16-63) Alkaline Phosphatase 60 U/L (46-116) Total Protein 7.4 g/dL (6.4-8.2) Albumin 1.8 g/dL (3.4-5.0) Albumin/Globulin Ratio 0.3 (1.0-1.7) Impression . 1. A 68-year-old with hemoptysis, 35-pound weight loss and highly abnormal CT chest with cavitary pneumonia in the right upper lobe and extensive parenchymal infiltrate in the right lower lobe. He has post-obstructive pneumonia and large endobronchial obstruction in the right main stem. 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 Suspect underlying chronic obstructive pulmonary disease, could be severe. He smoked for 51 years. 3. A 35-pound weight loss, due to malignancy Plan . 1. s/p bronchoscopy; totally occluding endobronchial mass right main stem/ galen pus seen from a tiny opening/ bx c/w Sq. cell 2. Continue present antibiotics.PO 3. off isolation for TB. 4. consulted medical and Radiation Oncology. 5. PFTs at some point 6. Continue bronchodilators. 7. Discussed with . PET/ MRI as OP and XRT soon dc home in [place] Valdez MD Aug 26, 2018 12:21
--- NOTE | 2018-08-26 13:08 | PATHOLOGY ---
[facility] Accession Number: [id number] . 01 Material submitted: . BRONCH BIOPSY RIGHT MAIN STEM BRONCHUS . 01 Clinical history: . Hemoptysis/Rule out endobronchial lesion . 02 Diagnosis: Bronchial biopsy, right main stem bronchus: - INVASIVE SQUAMOUS CELL CARCINOMA, MODERATELY DIFFERENTIATED. - Chronic inflammation. LBQ/08/25/2018 . 02 Comment: Sections of the bronchial biopsy reveal a malignant epithelial neoplasm. Two of the biopsy segments show irregular nests of atypical squamous epithelial cells which infiltrate an inflamed reactive desmoplastic stroma. The tumor cells show moderate nuclear pleomorphism and evidence of keratinization. The surface of these biopsy segments show squamous metaplasia with focal epithelial dysplasia. There is also a segment of bronchial mucosa showing chronic inflammation. The morphologic findings are supportive of the diagnosis of an invasive moderately differentiated squamous cell carcinoma. The case is also examined by Dr. Clemente, who concurs with the diagnosis. The results are reported to Dr. Arias at approximately 3:30 p.m. on 08/25/18. (JPM/db/pit; 08/25/2018) . The case was prepared and proofread by Dr. Luna and electronically released by Dr. Dr. Clemente. . 02 Electronically signed: . Ankush Clemente MD, Pathologist NPI- [id number] . 01 Gross description: . Received in formalin labeled "Silvino Betancourt, BBX right mainstem bronchus," are 2 segments of marks soft tissue measuring 0.6 x 0.1 x 0.1 cm in aggregate dimensions and ranging from 0.2 to 0.4 cm in maximum dimension. The specimen is submitted entirely in cassette A1. (TSD; 08/24/2018) TOB/TOB . 02 Pathologist provided ICD-10: C34.01 . 02 CPT . 453955 Specimen Comment: A courtesy copy of this report has been sent to Specimen Comment: [phone], , . Specimen Comment: Report sent to ,DR RED / DR VEGA Specimen Comment: A duplicate report has been generated due to demographic updates. Performed at: 01 [facility] [address], [place] [id number] MD Daniel Obrien MD Phone: [phone] Performed at: 02 [facility] [address] [place], [place] [id number] MD Jimbo Luna MD Phone: [phone]
--- NOTE | 2018-08-26 13:14 | PDOC ---
Provider Note Provider Note Med Onc consult: 1. A 68-year-old with hemoptysis, 35-pound weight loss and with cavitary pneumonia in the right upper lobe and extensive parenchymal infiltrate in the right lower lobe. He has post-obstructive pneumonia and large endobronchial obstruction in the right main stem. s/p Bronch / Bx c/w squamous cell lung cancer. Ordered MRI brain to eval for mets. Plan PET as OP and combined chemo/XRT soon. f/u with me in 1 week. See dictation [id number] LULY CHAHAL MD Aug 26, 2018 13:14
[2018-08-26 14:57] VITALS: BP 125/85
[2018-08-26] MEDS ORDERED: GADOBUTROL 7.5 MMOL/7.5 ML VIAL IV ONE (15:30)
--- NOTE | 2018-08-26 16:11 | PDOC ---
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 Bronch and bx done 08/24/2018 with endobroch lesion within 2 cm of nataliya. Bx reveals squamous cell carcinoma Stable since bronch. Overall feels much better since admit. CT chest central mass with occlusion of Rt MSB. cavitating lesion lateral to this with distal lung collapse. patchy distal infiltrate inferiorly. Odd calcified left adrenal mass. MRI head just done and looks clear on my review, await formal report. Impression: Squamous cell carcinoma of central right lung. Bx result pending at this time and should be available 08/26/2018. Difficult to ascertain limits of malignancy vs obstructive pneumonitis. Also need to identify jake involvement and assess for distant met disease. As he is relatively stable, I would like to pursue PET/CT first before finalizing treatment decision. I will schedule PET/CT and see him after imaging. Dr Christian's eval appreciated. He will see patient after PET/CT as well. Discussed with Dr. Arias. NERY TATUM MD, JAY S MD Aug 26, 2018 16:11
--- NOTE | 2018-08-26 17:08 | PATHOLOGY ---
Note [facility] Accession Number: [id number] TESTS RESULT FLAG UNITS REF RANGE LAB Clinician Provided Cytology Information No. of containers..01 Other (Miscellaneous) Source: BR WASH RT MAIN STEM DIAGNOSIS: BR WASH RT MAIN STEM NEGATIVE FOR MALIGNANT CELLS. PULMONARY MACROPHAGES (DUST CELLS) ARE PRESENT. Signed out by: Ankush Clemente MD, Pathologist NPI- [id number] Performed by: Brandon Olmstead, Community Education Coordinator ([facility]) Gross description: 01 5ML, RED THICK, MUCOID /LCS FLAG LEGEND: L-Low Normal,H-High Normal,LL-Alert Low,HH-Alert High <-Panic Low,>-Panic High,A-Abnormal,AA-Critical Abnormal Performed at: [address] [place] [address] Daniel Obrien MD, 02 [facility] [address] [place] [address] Jimbo Luna MD, Specimen Comment: A courtesy copy of this report has been sent to Specimen Comment: [phone], . Specimen Comment: Report sent to / DR RED Specimen Comment: A duplicate report has been generated due to demographic updates. Performed at: [address] [place] [address] [address], [place], [place] [id number] MD Daniel Obrien MD Phone: [phone]
--- NOTE | 2018-08-26 17:39 | RAD ---
MRI of the Brain without and with Contrast 08/26/2018 Clinical History: Lung cancer. Technique: Unenhanced T1-weighted sagittal and axial and FLAIR, T2-weighted, gradient echo and diffusion-weighted axial images of the brain were obtained. After the intravenous administration of 7 cc of Gadavist, enhanced T1-weighted axial, sagittal and coronal images of the brain were obtained. Findings: Images from the study are degraded by patient motion. There is generalized parenchymal atrophy. Patchy and small scattered areas of abnormally increased signal intensity are seen within the periventricular and subcortical white matter of both cerebral hemispheres on the FLAIR and T2-weighted images consistent with areas of minimal small vessel ischemic disease. No acute parenchymal abnormality is seen. No abnormal area of contrast enhancement is noted. No extra-axial fluid collection is seen. There is no MRI evidence of acute ischemia/infarction. The paranasal sinuses are essentially clear. Normal flow voids are seen within the major vascular structures surrounding the brain parenchyma. Impression: No acute parenchymal abnormality is seen. There is no MRI evidence of metastatic disease involving the brain parenchyma. Electronically signed by: Casey Garner MD (08/26/2018 5:36 PM) [facility]
[2018-08-26 19:00] VITALS: BP 133/62
[2018-08-26] MEDS: AMOXICILLIN/K CLAV 875/125MG TABLET. PO SCH (20:48)
[2018-08-26 23:00] VITALS: BP 130/63
--- NOTE | 2018-08-26 23:43 | CONS ---
DATE OF CONSULTATION: 08/26/2018 MEDICAL ONCOLOGY CONSULTATION REPORT CONSULTATION REQUESTED BY: Dr. Tc Galvan. REASON FOR CONSULTATION: Lung cancer. HISTORY OF PRESENT ILLNESS: The patient is a 68-year-old gentleman who has a history of cigarette smoking 3 packs per day for 51 years that he quit in March 2018. He has had history of hemoptysis for about 3 months prior to his admission to [facility] on 08/22/2018. He has also had cough with yellow sputum and occasional dyspnea. He denies any chest pain. No fevers, chills or night sweats. He has 34 pound weight loss in 3 months prior to admission and he has also had weight loss even prior to that. He denies any abdominal pain, no nausea, vomiting. He underwent further evaluation with a CT angiogram of the chest on 08/22/2018 that revealed diffuse patchy peribronchial infiltrates throughout the right lung field with a large area of dense consolidation infiltrate with central cavitation in the right upper lobe of the lung measuring 9 x 10 x 8.3 cm. Infectious cavitation versus malignancy was in the differential diagnosis. Few nonspecific lymph nodes in the mediastinum and a 3.2 cm calcified nodule in the left adrenal gland was noted. Moderate anterior wedge compression deformity at the T12 vertebral body was also noted. He was evaluated by Pulmonary Medicine and he underwent a bronchoscopy by Dr. Angel Arias on 08/24/2018, which revealed endobronchial tumor causing near total occlusion of the right main stem bronchus within 2 cm of the nataliya. Maurice pus coming out through a very tiny opening in the right main stem bronchus leading to bronchus intermedius and the patient required significant suctioning. He underwent biopsies and the preliminary results indicated that is the squamous cell carcinoma and hence I was consulted for further evaluation. Infectious Diseases was also consulted for management of cavitary pneumonia and he was treated with IV vancomycin and Zosyn and then transitioned to Augmentin with recommendations for p.o. Augmentin for 2 weeks. I was asked to see the patient for further evaluation and management of lung cancer. Radiation Oncology was also consulted. PAST MEDICAL HISTORY: He denies any significant medical problems. FAMILY HISTORY: Mother had lung cancer. Sister had cancer, but is not sure what type. SOCIAL HISTORY: He lives in [place], [place]. He quit smoking in March 2018 and he smoked 3 packs per day for about 51 years. REVIEW OF SYSTEMS: A 12-point review of system was performed. Pertinent positives are mentioned in the history of present illness. Rest of the system review is negative. PHYSICAL EXAMINATION: GENERAL APPEARANCE: The patient is a 68-year-old gentleman who is in no acute cardiorespiratory distress. VITAL SIGNS: Blood pressure 125/63, temperature 98.8. HEENT: Atraumatic, normocephalic. Eyes: No icterus. NECK: Supple. CHEST: Bilaterally symmetrical. No crepitations or rhonchi heard. HEART: S1, S2 normal. ABDOMEN: Soft, nontender. CENTRAL NERVOUS SYSTEM: No focal deficits. LYMPHATICS: No lymphadenopathy. SKIN: No rashes. PSYCHOLOGIC: Mood and affect are appropriate. MUSCULOSKELETAL: No joint effusions. LABORATORY DATA: WBC 12.8, hemoglobin 9.2, platelet count 383. Creatinine 1.3. Iron 14, TIBC 117, iron saturation 12, total bilirubin 0.5, creatinine 1.3, alkaline phosphatase 15, total bilirubin 0.5, AST 17, ALT 15, albumin 1.8, calcium at the time of admission was 10.5. IMPRESSION AND PLAN: 1. 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 CT scan revealed possible mediastinal lymph node involvement and hence this is likely a T3N2M0 lung cancer. Appreciate consultation by Dr. Suárez and I agree to proceed with PET scan for further evaluation. He will most likely need concurrent chemoradiation therapy depending on the PET scan results. I will also obtain MRI of the brain to complete the staging workup. I discussed in detail with the patient. He understands and agrees with the plan. 2. Anemia secondary to malignancy. Iron studies are consistent with anemia due to chronic disease. I will also check B12 levels. 3. Hypoalbuminemia with albumin of only 1.8 due to malignancy. Continue to monitor. LULY CHAHAL MD DR: HUBERT/alice JOB#: [id number] / [id number] RUEL
[2018-08-27 03:00] VITALS: BP 128/64
[2018-08-27 04:19] LABS: BASO # 0.1 x10^3/uL (0.0-0.2); BASO % 1 % (0-3); EOS # 0.3 x10^3/uL (0.0-0.7); EOS % 2 % (0-3); HEMATOCRIT 28.1 % (39.0-53.0); HEMOGLOBIN 8.7 g/dL (13.0-17.5); LYMPH # 1.3 x10^3/uL (1.0-4.8); LYMPH % 10 % (24-48); MEAN CORPUSCULAR HEMOGLOBIN 25 pg (25-35); MEAN CORPUSCULAR HGB CONC 31 g/dL (31-37); MEAN CORPUSCULAR VOLUME 80 fL (79-100); MONO # 0.9 x10^3/uL (0.0-1.1); MONO % 7 % (0-9); NEUT # 10.3 x10^3uL (1.8-7.7); NEUT % 80 % (31-73); PLATELET COUNT 390 x10^3/uL (140-400); RED CELL DISTRIBUTION WIDTH 15.9 % (11.5-14.5); WHITE BLOOD COUNT 12.9 x10^3/uL (4.0-11.0)
[2018-08-27 05:28] LABS: ALBUMIN 1.8 g/dL (3.4-5.0); ALBUMIN/GLOBULIN RATIO 0.3 (1.0-1.7); CALCIUM 10.4 mg/dL (8.5-10.1); CREATININE 1.6 mg/dL (0.7-1.3); GFR 43.2; POTASSIUM 3.2 mmol/L (3.5-5.1); TOTAL BILIRUBIN 0.3 mg/dL (0.2-1.0); TOTAL PROTEIN 7.2 g/dL (6.4-8.2)
[2018-08-27 07:00] VITALS: BP 123/56
[2018-08-27] MEDS: IPRATRPIUM/ALBUTEROL 0.5/2.5MG 3 ML NEBU. NEB SCH ×3 (07:43→11:56)
[2018-08-27] MEDS: LACTOBACILLUS RHAMNOSUS GG 1 CAPSULE. PO SCH (08:31)
[2018-08-27] MEDS: AMOXICILLIN/K CLAV 875/125MG TABLET. PO SCH (08:31)
--- NOTE | 2018-08-27 08:40 | NUR ---
Patient eating breakfast, has had oxygen off approx. 30 minutes, O2 sat. 91% on room air. Patient denies SOA now, but states can be CHAVEZ. Continue to monitor.
--- NOTE | 2018-08-27 08:46 | PDOC ---
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 ROS - no CP Objective Objective Vital Signs Date Time Temp Pulse Resp B/P (MAP) Pulse Ox O2 Delivery O2 Flow Rate FiO2 08/27/18 07:45 97 Nasal Cannula 2.0 08/27/18 07:00 98.1 71 20 123/56 (78) 98.1 Intake and Output 08/27/18 07:00 Intake Total 820 ml Output Total 600 ml Balance 220 ml Intake Oral 720 ml IV Total 100 ml Output Urine Total 600 ml # Voids 3 # Bowel Movements 1 Physical Exam Heart: Normal S1, Normal S2 General: Alert, Oriented X3 Lungs: Clear to auscultation Neuro: Normal speech Psych/Mental Status: Mental status NL Assessment Assessment Problems Medical Problems: (1) Cavitary lesion of lung Status: Acute (2) Pneumonia Status: Acute IMPRESSION AND PLAN: 1. 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 He has post-obstructive pneumonia. CT scan revealed possible mediastinal lymph node involvement and hence this is likely a [id number] lung cancer. Appreciate consultation by Dr. Suárez and I agree to proceed with PET scan for further evaluation. He will most likely need concurrent chemoradiation therapy depending on the PET scan results. MRI brain 08/26/18 - no mets. 2. Anemia secondary to malignancy. Iron studies are consistent with anemia due to chronic disease. Normal B12 levels. 3. Hypoalbuminemia with albumin of only 1.8 due to malignancy. Continue to monitor. Comment Review of Relevant I have reviewed the following items tristan (where applicable) has been applied. Labs Laboratory Tests Test 08/26/18 04:00 08/27/18 03:30 White Blood Count 12.8 x10^3/uL (4.0-11.0) 12.9 x10^3/uL (4.0-11.0) Red Blood Count 3.74 x10^6/uL (4.30-5.70) 3.50 x10^6/uL (4.30-5.70) Hemoglobin 9.2 g/dL (13.0-17.5) 8.7 g/dL (13.0-17.5) Hematocrit 30.1 % (39.0-53.0) 28.1 % (39.0-53.0) Mean Corpuscular Volume 81 fL (79-100) 80 fL (79-100) Mean Corpuscular Hemoglobin 25 pg (25-35) 25 pg (25-35) Mean Corpuscular Hemoglobin Concent 31 g/dL (31-37) 31 g/dL (31-37) Red Cell Distribution Width 15.4 % (11.5-14.5) 15.9 % (11.5-14.5) Platelet Count 383 x10^3/uL (140-400) 390 x10^3/uL (140-400) Neutrophils (%) (Auto) 79 % (31-73) 80 % (31-73) Lymphocytes (%) (Auto) 10 % (24-48) 10 % (24-48) Monocytes (%) (Auto) 7 % (0-9) 7 % (0-9) Eosinophils (%) (Auto) 3 % (0-3) 2 % (0-3) Basophils (%) (Auto) 1 % (0-3) 1 % (0-3) Neutrophils # (Auto) 10.1 x10^3uL (1.8-7.7) 10.3 x10^3uL (1.8-7.7) Lymphocytes # (Auto) 1.3 x10^3/uL (1.0-4.8) 1.3 x10^3/uL (1.0-4.8) Monocytes # (Auto) 0.9 x10^3/uL (0.0-1.1) 0.9 x10^3/uL (0.0-1.1) Eosinophils # (Auto) 0.3 x10^3/uL (0.0-0.7) 0.3 x10^3/uL (0.0-0.7) Basophils # (Auto) 0.1 x10^3/uL (0.0-0.2) 0.1 x10^3/uL (0.0-0.2) Reticulocyte Count (auto) 1.2 % (0.5-2.5) Sodium Level 145 mmol/L (136-145) 142 mmol/L (136-145) Potassium Level 3.5 mmol/L (3.5-5.1) 3.2 mmol/L (3.5-5.1) Chloride Level 107 mmol/L (98-107) 106 mmol/L (98-107) Carbon Dioxide Level 28 mmol/L (21-32) 27 mmol/L (21-32) Anion Gap 10 (6-14) 9 (6-14) Blood Urea Nitrogen 4 mg/dL (8-26) 5 mg/dL (8-26) Creatinine 1.3 mg/dL (0.7-1.3) 1.6 mg/dL (0.7-1.3) Estimated GFR (Cockcroft-Gault) 54.9 43.2 BUN/Creatinine Ratio 3 (6-20) 3 (6-20) Glucose Level 94 mg/dL (70-99) 105 mg/dL (70-99) Calcium Level 10.0 mg/dL (8.5-10.1) 10.4 mg/dL (8.5-10.1) Ferritin 856 ng/mL (26-388) Total Bilirubin 0.5 mg/dL (0.2-1.0) 0.3 mg/dL (0.2-1.0) Aspartate Amino Transf (AST/SGOT) 17 U/L (15-37) 15 U/L (15-37) Alanine Aminotransferase (ALT/SGPT) 15 U/L (16-63) 18 U/L (16-63) Alkaline Phosphatase 60 U/L (46-116) 55 U/L (46-116) Total Protein 7.4 g/dL (6.4-8.2) 7.2 g/dL (6.4-8.2) Albumin 1.8 g/dL (3.4-5.0) 1.8 g/dL (3.4-5.0) Albumin/Globulin Ratio 0.3 (1.0-1.7) 0.3 (1.0-1.7) Vitamin B12 Level 504 pg/mL (247-911) Laboratory Tests Test 08/27/18 03:30 White Blood Count 12.9 x10^3/uL (4.0-11.0) Red Blood Count 3.50 x10^6/uL (4.30-5.70) Hemoglobin 8.7 g/dL (13.0-17.5) Hematocrit 28.1 % (39.0-53.0) Mean Corpuscular Volume 80 fL (79-100) Mean Corpuscular Hemoglobin 25 pg (25-35) Mean Corpuscular Hemoglobin Concent 31 g/dL (31-37) Red Cell Distribution Width 15.9 % (11.5-14.5) Platelet Count 390 x10^3/uL (140-400) Neutrophils (%) (Auto) 80 % (31-73) Lymphocytes (%) (Auto) 10 % (24-48) Monocytes (%) (Auto) 7 % (0-9) Eosinophils (%) (Auto) 2 % (0-3) Basophils (%) (Auto) 1 % (0-3) Neutrophils # (Auto) 10.3 x10^3uL (1.8-7.7) Lymphocytes # (Auto) 1.3 x10^3/uL (1.0-4.8) Monocytes # (Auto) 0.9 x10^3/uL (0.0-1.1) Eosinophils # (Auto) 0.3 x10^3/uL (0.0-0.7) Basophils # (Auto) 0.1 x10^3/uL (0.0-0.2) Sodium Level 142 mmol/L (136-145) Potassium Level 3.2 mmol/L (3.5-5.1) Chloride Level 106 mmol/L (98-107) Carbon Dioxide Level 27 mmol/L (21-32) Anion Gap 9 (6-14) Blood Urea Nitrogen 5 mg/dL (8-26) Creatinine 1.6 mg/dL (0.7-1.3) Estimated GFR (Cockcroft-Gault) 43.2 BUN/Creatinine Ratio 3 (6-20) Glucose Level 105 mg/dL (70-99) Calcium Level 10.4 mg/dL (8.5-10.1) Total Bilirubin 0.3 mg/dL (0.2-1.0) Aspartate Amino Transf (AST/SGOT) 15 U/L (15-37) Alanine Aminotransferase (ALT/SGPT) 18 U/L (16-63) Alkaline Phosphatase 55 U/L (46-116) Total Protein 7.2 g/dL (6.4-8.2) Albumin 1.8 g/dL (3.4-5.0) Albumin/Globulin Ratio 0.3 (1.0-1.7) Microbiology 08/22/18 Blood Culture - Preliminary, Resulted NO GROWTH AFTER 4 DAYS 08/24/18 AFB Specimen Processing Tissue - Final, Resulted 08/24/18 Acid Fast Bacilli Culture, Resulted Pending 08/24/18 Gram Stain - Final, Resulted 08/24/18 Fungal Culture, Resulted Pending 08/24/18 Fungal Culture Result 1, Resulted Pending Medications Current Medications Albuterol/ Ipratropium (Duoneb) 3 ml 1X ONCE NEB Last administered on at 16:18; Start 08/22/18 at 16:15; Stop 08/22/18 at 16:21; Status DC Sodium Chloride 1,000 ml @ 1,000 mls/hr Q1H IV Last administered on 08/22/18at 16:43; Start 08/22/18 at 16:30; Stop 08/22/18 at 17:29; Status DC Iohexol (Omnipaque 350 Mg/ml) 75 ml 1X ONCE IV Last administered on 08/22/18at 16:59; Start 08/22/18 at 16:45; Stop 08/22/18 at 16:48; Status DC Info (CONTRAST GIVEN -- Rx MONITORING) 1 each PRN DAILY PRN MC SEE COMMENTS; Start 08/22/18 at 17:00; Stop 08/24/18 at 16:59; Status DC Piperacillin Sod/ Tazobactam Sod (Zosyn Per Pharmacy) 1 each PRN DAILY PRN MC SEE COMMENTS; Start 08/22/18 at 18:00; Stop 08/26/18 at 13:29; Status DC Vancomycin HCl (Vanco Per Pharmacy) 1 each PRN DAILY PRN MC SEE COMMENTS Last administered on 08/25/18at 13:52; Start 08/22/18 at 18:00; Stop 08/26/18 at 09:13 ; Status DC Albuterol/ Ipratropium (Duoneb) 3 ml Q6HRS NEB Last administered on 08/27/18at 07:43; Start 08/22/18 at 18:00 Piperacillin Sod/ Tazobactam Sod 3.375 gm/Sodium Chloride 50 ml @ 100 mls/hr Q6HRS IV Last administered on 08/23/18at 14:19; Start 08/22/18 at 18:00; Stop at 16:38; Status DC Vancomycin HCl 1.75 gm/Sodium Chloride 500 ml @ 250 mls/hr 1X ONCE IV Last administered on 08/22/18at 19:46; Start 08/22/18 at 18:30; Stop 08/22/18 at 20:29 ; Status DC Acetaminophen (Tylenol) 500 mg PRN Q6HRS PRN PO MILD PAIN / TEMP Last administered on 08/25/18at 19:43; Start 08/22/18 at 18:45 Acetaminophen/ Codeine Phosphate (Tylenol #3) 1 tab PRN Q6HRS PRN PO MODERATE TO SEVERE PAIN; Start 08/22/18 at 18:45 Ondansetron HCl (Zofran) 4 mg PRN Q6HRS PRN IV NAUSEA/VOMITING; Start 08/22/18 at 18:45 Ondansetron HCl (Zofran Odt) 4 mg PRN Q6HRS PRN PO NAUSEA/VOMITING; Start 08/22 at 18:45 Temazepam (Restoril) 7.5 mg PRN QHS PRN PO INSOMNIA; Start 08/22/18 at 18:45 Sodium Chloride 1,000 ml @ 100 mls/hr 1X ONCE IV Last administered on at 22:38; Start 08/22/18 at 19:00; Stop 08/23/18 at 04:59; Status DC Guaifenesin (Robitussin Dm) 10 ml PRN Q6HRS PRN PO COUGH; Start 08/22/18 at 18: 45 Acetaminophen (Tylenol) 650 mg PRN Q6HRS PRN PO MILD PAIN / TEMP; Start at 17:00; Status UNV Nicotine (Nicoderm Cq 21mg) 1 patch PRN DAILY PRN TD SMOKING CESSATION; Start 08/22/18 at 19:15 Acetaminophen (Tylenol) 650 mg 1X ONCE PO Last administered on 08/22/18at 17:00 ; Start 08/22/18 at 19:30; Stop 08/22/18 at 19:31; Status DC Sodium Chloride 1,000 ml @ 1,000 mls/hr 1X ONCE IV Last administered on 22:39; Start 08/22/18 at 21:00; Stop 08/22/18 at 21:59; Status DC Vancomycin HCl 1.25 gm/Sodium Chloride 250 ml @ 167 mls/hr Q12H IV Last administered on 08/25/18 20:34; Start 08/23/18 at 08:00; Stop 08/26/18 at 09:11 ; Status DC Vancomycin HCl (Vancomycin Trough Level) 1 each 1X ONCE MC Last administered on 08/24/18 07:30; Start 08/24/18 at 07:30; Stop 08/24/18 at 07:31; Status DC Potassium Chloride (Klor-Con) 40 meq 1X ONCE PO Last administered on 18:18; Start 08/23/18 at 16:00; Stop 08/23/18 at 16:01; Status DC Piperacillin Sod/ Tazobactam Sod 4.5 gm/Sodium Chloride 100 ml @ 200 mls/hr Q6HRS IV Last administered on 08/26/18 06:32; Start 08/23/18 at 18:00; Stop at 09:11; Status DC Lactobacillus Rhamnosus (Culturelle) 1 cap BID PO Last administered on 08:31; Start 08/23/18 at 21:00 Ringer's Solution 1,000 ml @ 50 mls/hr Q20H IV Last administered on 08/24/18 11:41; Start 08/24/18 at 07:00; Stop 08/24/18 at 18:59; Status DC Potassium Chloride (Klor-Con) 40 meq 1X ONCE PO ; Start 08/24/18 at 08:30; Stop 08/24/18 at 08:31; Status Cancel Lidocaine HCl (Lidocaine 2% Viscous) 100 ml PRN 1X PRN MM MOUTH PAIN Last administered on 08/24/18 11:30; Start 08/24/18 at 11:00; Stop 08/25/18 at 10:59 ; Status DC Lidocaine HCl (Lidocaine 1% 20ml Vial) 20 ml PRN 1X PRN INJ SEE COMMENTS Last administered on 08/24/18at 11:31; Start 08/24/18 at 11:00; Stop 08/25/18 at 10:59 ; Status DC Epinephrine HCl (Adrenalin) 1 mg PRN 1X PRN INJ SEE COMMENTS Last administered on 08/24/18at 12:46; Start 08/24/18 at 11:00; Stop 08/25/18 at 10:59; Status DC Lidocaine HCl 50 ml PRN 1X PRN MM SEE COMMENTS Last administered on 08/24/18at 11:30; Start 08/24/18 at 11:00; Stop 08/25/18 at 10:59; Status DC Epinephrine HCl (Adrenalin) 1 mg STK-MED ONCE .ROUTE ; Start 08/24/18 at 11:13; Stop 08/24/18 at 11:14; Status DC Lidocaine HCl (Lidocaine 1% 20ml Vial) 20 ml STK-MED ONCE .ROUTE ; Start at 11:13; Stop 08/24/18 at 11:14; Status DC Lidocaine HCl (Lidocaine 2% Viscous) 100 ml STK-MED ONCE .ROUTE ; Start at 11:13; Stop 08/24/18 at 11:14; Status DC Lidocaine HCl 50 ml STK-MED ONCE .ROUTE ; Start 08/24/18 at 11:13; Stop at 11:15; Status DC Propofol 20 ml @ As Directed STK-MED ONCE IV ; Start 08/24/18 at 12:06; Stop at 12:07; Status DC Epinephrine HCl (Adrenalin) 1 mg STK-MED ONCE .ROUTE ; Start 08/24/18 at 12:20; Stop 08/24/18 at 12:21; Status DC Potassium Chloride (Klor-Con) 40 meq 1X ONCE PO Last administered on at 20:06; Start 08/24/18 at 19:00; Stop 08/24/18 at 19:01; Status DC Amoxicillin/ Clavulanate Potassium (Augmentin 875/ 125mg) 1 tab BID PO Last administered on 08/27/18at 08:31; Start 08/26/18 at 21:00 Gadobutrol (Gadavist) 7 mmol 1X ONCE IV Last administered on 08/26/18at 15:39; Start 08/26/18 at 15:30; Stop 08/26/18 at 15:31; Status DC Vitals/I & O Vital Sign - Last 24 Hours 08/26/18 08/26/18 08/26/18 08/26/18 11:19 12:41 14:57 19:00 Temp 98.8 98.5 100.2 98.8 98.5 100.2 Pulse 72 78 77 Resp 18 20 20 B/P (MAP) 125/63 (83) 125/85 (98) 133/62 (85) Pulse Ox 96 96 95 93 O2 Delivery Nasal Cannula Nasal Cannula Nasal Cannula Nasal Cannula O2 Flow Rate 2.0 1.0 2.0 2.0 08/26/18 08/26/18 08/26/18 08/27/18 19:30 20:00 23:00 00:08 Temp 99.7 99.7 Pulse 85 Resp 20 B/P (MAP) 130/63 (85) Pulse Ox 94 O2 Delivery Room Air Nasal Cannula Nasal Cannula Nasal Cannula O2 Flow Rate 1.0 1.0 2.0 2.0 08/27/18 08/27/18 08/27/18 03:00 07:00 07:45 Temp 98.7 98.1 98.7 98.1 Pulse 82 71 Resp 20 20 B/P (MAP) 128/64 (85) 123/56 (78) Pulse Ox 93 96 97 O2 Delivery Nasal Cannula Nasal Cannula Nasal Cannula O2 Flow Rate 2.0 2.0 2.0 Intake and Output 08/26/18 08/26/18 08/27/18 15:00 23:00 07:00 Intake Total 360 ml 360 ml 100 ml Output Total 600 ml Balance 360 ml -240 ml 100 ml Nutrition Consultation Dietary Evaluation: Recommendations by RD: Increase Calorie Intake, Protein supplementation Comments: liberlize diet to regular chocolate ensure pudding bid Expected Outcomes/Goals: to meet > 75% est nutr needs Interpretation of weight loss: >7.5% in 3 months Malnutrition Findings: Food and Nutrition Intake (Sev: <50% est energy req 5days Weight Status: Appropriate LULY CHAHAL MD Aug 27, 2018 08:46
--- NOTE | 2018-08-27 09:50 | PDOC ---
Infectious Disease Note Subjective Subjective awake, feeling ok ROS ROS no n/v/d/ Vital Sign Vital Signs Vital Signs Date Time Temp Pulse Resp B/P (MAP) Pulse Ox O2 Delivery O2 Flow Rate FiO2 08/27/18 08:00 Nasal Cannula 2.0 08/27/18 07:45 97 08/27/18 07:00 98.1 71 20 123/56 (78) 98.1 Physical Exam PHYSICAL EXAM GENERAL: Alert, oriented gentleman, not in any distress. VITAL SIGNS: Stable, afebrile. HEENT: NAD. NECK: Supple, no JVP, no lymphadenopathy. LUNGS: Clear. HEART: S1, S2 regular. ABDOMEN: Benign. EXTREMITIES: No edema or cyanosis. SKIN: Unremarkable. NEUROLOGIC: The patient is neurologically intact. Labs Lab Laboratory Tests Test 08/27/18 03:30 White Blood Count 12.9 x10^3/uL (4.0-11.0) Red Blood Count 3.50 x10^6/uL (4.30-5.70) Hemoglobin 8.7 g/dL (13.0-17.5) Hematocrit 28.1 % (39.0-53.0) Mean Corpuscular Volume 80 fL (79-100) Mean Corpuscular Hemoglobin 25 pg (25-35) Mean Corpuscular Hemoglobin Concent 31 g/dL (31-37) Red Cell Distribution Width 15.9 % (11.5-14.5) Platelet Count 390 x10^3/uL (140-400) Neutrophils (%) (Auto) 80 % (31-73) Lymphocytes (%) (Auto) 10 % (24-48) Monocytes (%) (Auto) 7 % (0-9) Eosinophils (%) (Auto) 2 % (0-3) Basophils (%) (Auto) 1 % (0-3) Neutrophils # (Auto) 10.3 x10^3uL (1.8-7.7) Lymphocytes # (Auto) 1.3 x10^3/uL (1.0-4.8) Monocytes # (Auto) 0.9 x10^3/uL (0.0-1.1) Eosinophils # (Auto) 0.3 x10^3/uL (0.0-0.7) Basophils # (Auto) 0.1 x10^3/uL (0.0-0.2) Sodium Level 142 mmol/L (136-145) Potassium Level 3.2 mmol/L (3.5-5.1) Chloride Level 106 mmol/L (98-107) Carbon Dioxide Level 27 mmol/L (21-32) Anion Gap 9 (6-14) Blood Urea Nitrogen 5 mg/dL (8-26) Creatinine 1.6 mg/dL (0.7-1.3) Estimated GFR (Cockcroft-Gault) 43.2 BUN/Creatinine Ratio 3 (6-20) Glucose Level 105 mg/dL (70-99) Calcium Level 10.4 mg/dL (8.5-10.1) Total Bilirubin 0.3 mg/dL (0.2-1.0) Aspartate Amino Transf (AST/SGOT) 15 U/L (15-37) Alanine Aminotransferase (ALT/SGPT) 18 U/L (16-63) Alkaline Phosphatase 55 U/L (46-116) Total Protein 7.2 g/dL (6.4-8.2) Albumin 1.8 g/dL (3.4-5.0) Albumin/Globulin Ratio 0.3 (1.0-1.7) Micro GRAM STAIN WHITE BLOOD CELLS Final Few GRAM STAIN EPITHELIAL CELLS Final Few GRAM STAIN RESULT 1 Final Comment Few gram positive cocci GRAM STAIN EVALUATION Final Comment This specimen is of good quality and is acceptable for routine bacterial culture. Performed at: DA - [facility] [address], [place], [place] [id number] Software Publisher: JUAN Tyler MD, Phone: [phone] SPUTUM CULTURE-LC PENDING Beta hemolytic Streptococcus, group C Objective Assessment Cavitary pneumonia , Pulmonary mass suspected malignancy and post obstructive pneumonia Wt loss Hemoptysis Smoking Plan Plan of Care po augmentin for 2 wks check biopsy ok to d/c from ID stand point AUGUSTA INFANTE MD Aug 27, 2018 09:50
--- NOTE | 2018-08-27 10:58 | SNU/HH DC ---
DISCHARGE WITH HOME HEALTH DISCHARGE INFORMATION: Final Diagnosis: Problems Medical Problems: (1) Cavitary lesion of lung Status: Acute (2) Pneumonia Status: Acute Condition on Discharge: Stable CODE STATUS: Code Status: Full HOME HEALTH: Face to Face: I certify this patient is under my care and that I, or a nurse practitioner or physician's pharmacist assistant working with me, had a face to face encounter that meets the physician face to face encounter requirements with this patient on []. Medical Complications: COPD Home Health Aide For: Self-care POST DISCHARGE ORDERS: DIET AFTER DISCHARGE: Cardiac CERTIFICATION STATEMENT: Certification Statement: Certification Statement: Based on the above finding, I certify that this patient is confined to the home and needs intermittent half-way care, physical therapy and/or speech therapy, or continues to need occupational therapy.~ This patient is under my care, and I have initiated the establishment of the plan of care.~ This patient will be followed by myself or a community physician who will periodically review the plan of care. ANDRÉS FARAH III, DO Aug 27, 2018 10:58
[2018-08-27 11:00] VITALS: BP 126/66
--- NOTE | 2018-08-27 11:29 | PDOC ---
PROGRESS NOTES Chief Complaint Chief Complaint Cavitary pneumonia in the right upper lobe - likely 2/2 lung cancer totally occluding endobronchial mass seen on bronchoscopy, biopsy showed squamous cell carcinoma Hemoptysis Significant unintentional weight loss Parenchymal infiltrate in the right lower lobe - likely a secondary pneumonia, will treat empirically as community acquired Likely chronic obstructive pulmonary disease - likely is severe Anemia History of Present Illness History of Present Illness Mr. Betancourt presented with hemoptysis, significant weight loss, found to have cavitary lesion RUL. Pulm and ID following. Blood cultures 2 x negative for 24 hours. Biopsy shows squamous cell carcinoma. Diagnosis discussed with patient. Patient was seen and examined at bedside. Discussed case with ID and nurse. Wally shah'ed. Vitals Vitals Vital Signs Date Time Temp Pulse Resp B/P (MAP) Pulse Ox O2 Delivery O2 Flow Rate FiO2 08/27/18 11:00 98.7 73 20 126/66 (86) 95 Nasal Cannula 2.0 98.7 Physical Exam Physical Exam . General: Alert, Oriented X3 Heart: Regular rate, Normal S1, Normal S2, No murmurs Lungs: Clear Abdomen: Normal bowel sounds, Soft, No tenderness, No hepatosplenomegaly, No masses Extremities: No clubbing, No cyanosis, No edema, Normal pulses, No tenderness/ swelling Skin: No rashes, No significant lesion Labs LABS Laboratory Tests Test 08/27/18 03:30 White Blood Count 12.9 x10^3/uL (4.0-11.0) Red Blood Count 3.50 x10^6/uL (4.30-5.70) Hemoglobin 8.7 g/dL (13.0-17.5) Hematocrit 28.1 % (39.0-53.0) Mean Corpuscular Volume 80 fL (79-100) Mean Corpuscular Hemoglobin 25 pg (25-35) Mean Corpuscular Hemoglobin Concent 31 g/dL (31-37) Red Cell Distribution Width 15.9 % (11.5-14.5) Platelet Count 390 x10^3/uL (140-400) Neutrophils (%) (Auto) 80 % (31-73) Lymphocytes (%) (Auto) 10 % (24-48) Monocytes (%) (Auto) 7 % (0-9) Eosinophils (%) (Auto) 2 % (0-3) Basophils (%) (Auto) 1 % (0-3) Neutrophils # (Auto) 10.3 x10^3uL (1.8-7.7) Lymphocytes # (Auto) 1.3 x10^3/uL (1.0-4.8) Monocytes # (Auto) 0.9 x10^3/uL (0.0-1.1) Eosinophils # (Auto) 0.3 x10^3/uL (0.0-0.7) Basophils # (Auto) 0.1 x10^3/uL (0.0-0.2) Sodium Level 142 mmol/L (136-145) Potassium Level 3.2 mmol/L (3.5-5.1) Chloride Level 106 mmol/L (98-107) Carbon Dioxide Level 27 mmol/L (21-32) Anion Gap 9 (6-14) Blood Urea Nitrogen 5 mg/dL (8-26) Creatinine 1.6 mg/dL (0.7-1.3) Estimated GFR (Cockcroft-Gault) 43.2 BUN/Creatinine Ratio 3 (6-20) Glucose Level 105 mg/dL (70-99) Calcium Level 10.4 mg/dL (8.5-10.1) Total Bilirubin 0.3 mg/dL (0.2-1.0) Aspartate Amino Transf (AST/SGOT) 15 U/L (15-37) Alanine Aminotransferase (ALT/SGPT) 18 U/L (16-63) Alkaline Phosphatase 55 U/L (46-116) Total Protein 7.2 g/dL (6.4-8.2) Albumin 1.8 g/dL (3.4-5.0) Albumin/Globulin Ratio 0.3 (1.0-1.7) Review of Systems Review of Systems Denies chest pain Denies shortness of breath Assessment and Plan Assessmemt and Plan Problems Medical Problems: (1) Cavitary lesion of lung Status: Acute (2) Pneumonia Status: Acute Assessment: Cavitary pneumonia in the right upper lobe - likely 2/2 lung cancer totally occluding endobronchial mass seen on bronchoscopy, biopsy showed squamous cell carcinoma Hemoptysis Significant unintentional weight loss Parenchymal infiltrate in the right lower lobe - likely a secondary pneumonia, will treat empirically as community acquired Likely chronic obstructive pulmonary disease - likely is severe Anemia Plan: Patient okay for discharge today Continue augmentin outpatient Follow up with oncology outpatient - will need PET/MRI Continue to monitor virals and labs Replace potassium Return to ED with worsening symptoms Comment Review of Relevant I have reviewed the following items tristan (where applicable) has been applied. Labs Laboratory Tests Test 08/26/18 04:00 08/27/18 03:30 White Blood Count 12.8 x10^3/uL (4.0-11.0) 12.9 x10^3/uL (4.0-11.0) Red Blood Count 3.74 x10^6/uL (4.30-5.70) 3.50 x10^6/uL (4.30-5.70) Hemoglobin 9.2 g/dL (13.0-17.5) 8.7 g/dL (13.0-17.5) Hematocrit 30.1 % (39.0-53.0) 28.1 % (39.0-53.0) Mean Corpuscular Volume 81 fL (79-100) 80 fL (79-100) Mean Corpuscular Hemoglobin 25 pg (25-35) 25 pg (25-35) Mean Corpuscular Hemoglobin Concent 31 g/dL (31-37) 31 g/dL (31-37) Red Cell Distribution Width 15.4 % (11.5-14.5) 15.9 % (11.5-14.5) Platelet Count 383 x10^3/uL (140-400) 390 x10^3/uL (140-400) Neutrophils (%) (Auto) 79 % (31-73) 80 % (31-73) Lymphocytes (%) (Auto) 10 % (24-48) 10 % (24-48) Monocytes (%) (Auto) 7 % (0-9) 7 % (0-9) Eosinophils (%) (Auto) 3 % (0-3) 2 % (0-3) Basophils (%) (Auto) 1 % (0-3) 1 % (0-3) Neutrophils # (Auto) 10.1 x10^3uL (1.8-7.7) 10.3 x10^3uL (1.8-7.7) Lymphocytes # (Auto) 1.3 x10^3/uL (1.0-4.8) 1.3 x10^3/uL (1.0-4.8) Monocytes # (Auto) 0.9 x10^3/uL (0.0-1.1) 0.9 x10^3/uL (0.0-1.1) Eosinophils # (Auto) 0.3 x10^3/uL (0.0-0.7) 0.3 x10^3/uL (0.0-0.7) Basophils # (Auto) 0.1 x10^3/uL (0.0-0.2) 0.1 x10^3/uL (0.0-0.2) Reticulocyte Count (auto) 1.2 % (0.5-2.5) Sodium Level 145 mmol/L (136-145) 142 mmol/L (136-145) Potassium Level 3.5 mmol/L (3.5-5.1) 3.2 mmol/L (3.5-5.1) Chloride Level 107 mmol/L (98-107) 106 mmol/L (98-107) Carbon Dioxide Level 28 mmol/L (21-32) 27 mmol/L (21-32) Anion Gap 10 (6-14) 9 (6-14) Blood Urea Nitrogen 4 mg/dL (8-26) 5 mg/dL (8-26) Creatinine 1.3 mg/dL (0.7-1.3) 1.6 mg/dL (0.7-1.3) Estimated GFR (Cockcroft-Gault) 54.9 43.2 BUN/Creatinine Ratio 3 (6-20) 3 (6-20) Glucose Level 94 mg/dL (70-99) 105 mg/dL (70-99) Calcium Level 10.0 mg/dL (8.5-10.1) 10.4 mg/dL (8.5-10.1) Ferritin 856 ng/mL (26-388) Total Bilirubin 0.5 mg/dL (0.2-1.0) 0.3 mg/dL (0.2-1.0) Aspartate Amino Transf (AST/SGOT) 17 U/L (15-37) 15 U/L (15-37) Alanine Aminotransferase (ALT/SGPT) 15 U/L (16-63) 18 U/L (16-63) Alkaline Phosphatase 60 U/L (46-116) 55 U/L (46-116) Total Protein 7.4 g/dL (6.4-8.2) 7.2 g/dL (6.4-8.2) Albumin 1.8 g/dL (3.4-5.0) 1.8 g/dL (3.4-5.0) Albumin/Globulin Ratio 0.3 (1.0-1.7) 0.3 (1.0-1.7) Vitamin B12 Level 504 pg/mL (247-911) Laboratory Tests Test 08/27/18 03:30 White Blood Count 12.9 x10^3/uL (4.0-11.0) Red Blood Count 3.50 x10^6/uL (4.30-5.70) Hemoglobin 8.7 g/dL (13.0-17.5) Hematocrit 28.1 % (39.0-53.0) Mean Corpuscular Volume 80 fL (79-100) Mean Corpuscular Hemoglobin 25 pg (25-35) Mean Corpuscular Hemoglobin Concent 31 g/dL (31-37) Red Cell Distribution Width 15.9 % (11.5-14.5) Platelet Count 390 x10^3/uL (140-400) Neutrophils (%) (Auto) 80 % (31-73) Lymphocytes (%) (Auto) 10 % (24-48) Monocytes (%) (Auto) 7 % (0-9) Eosinophils (%) (Auto) 2 % (0-3) Basophils (%) (Auto) 1 % (0-3) Neutrophils # (Auto) 10.3 x10^3uL (1.8-7.7) Lymphocytes # (Auto) 1.3 x10^3/uL (1.0-4.8) Monocytes # (Auto) 0.9 x10^3/uL (0.0-1.1) Eosinophils # (Auto) 0.3 x10^3/uL (0.0-0.7) Basophils # (Auto) 0.1 x10^3/uL (0.0-0.2) Sodium Level 142 mmol/L (136-145) Potassium Level 3.2 mmol/L (3.5-5.1) Chloride Level 106 mmol/L (98-107) Carbon Dioxide Level 27 mmol/L (21-32) Anion Gap 9 (6-14) Blood Urea Nitrogen 5 mg/dL (8-26) Creatinine 1.6 mg/dL (0.7-1.3) Estimated GFR (Cockcroft-Gault) 43.2 BUN/Creatinine Ratio 3 (6-20) Glucose Level 105 mg/dL (70-99) Calcium Level 10.4 mg/dL (8.5-10.1) Total Bilirubin 0.3 mg/dL (0.2-1.0) Aspartate Amino Transf (AST/SGOT) 15 U/L (15-37) Alanine Aminotransferase (ALT/SGPT) 18 U/L (16-63) Alkaline Phosphatase 55 U/L (46-116) Total Protein 7.2 g/dL (6.4-8.2) Albumin 1.8 g/dL (3.4-5.0) Albumin/Globulin Ratio 0.3 (1.0-1.7) Microbiology 08/22/18 Blood Culture - Preliminary, Resulted NO GROWTH AFTER 4 DAYS 08/24/18 AFB Specimen Processing Tissue - Final, Resulted 08/24/18 Acid Fast Bacilli Culture, Resulted Pending 08/24/18 Gram Stain - Final, Resulted 08/24/18 Fungal Culture, Resulted Pending 08/24/18 Fungal Culture Result 1, Resulted Pending Medications Current Medications Albuterol/ Ipratropium (Duoneb) 3 ml 1X ONCE NEB Last administered on at 16:18; Start 08/22/18 at 16:15; Stop 08/22/18 at 16:21; Status DC Sodium Chloride 1,000 ml @ 1,000 mls/hr Q1H IV Last administered on 08/22/18at 16:43; Start 08/22/18 at 16:30; Stop 08/22/18 at 17:29; Status DC Iohexol (Omnipaque 350 Mg/ml) 75 ml 1X ONCE IV Last administered on 08/22/18at 16:59; Start 08/22/18 at 16:45; Stop 08/22/18 at 16:48; Status DC Info (CONTRAST GIVEN -- Rx MONITORING) 1 each PRN DAILY PRN MC SEE COMMENTS; Start 08/22/18 at 17:00; Stop 08/24/18 at 16:59; Status DC Piperacillin Sod/ Tazobactam Sod (Zosyn Per Pharmacy) 1 each PRN DAILY PRN MC SEE COMMENTS; Start 08/22/18 at 18:00; Stop 08/26/18 at 13:29; Status DC Vancomycin HCl (Vanco Per Pharmacy) 1 each PRN DAILY PRN MC SEE COMMENTS Last administered on 08/25/18at 13:52; Start 08/22/18 at 18:00; Stop 08/26/18 at 09:13 ; Status DC Albuterol/ Ipratropium (Duoneb) 3 ml Q6HRS NEB Last administered on 08/27/18at 07:43; Start 08/22/18 at 18:00 Piperacillin Sod/ Tazobactam Sod 3.375 gm/Sodium Chloride 50 ml @ 100 mls/hr Q6HRS IV Last administered on 08/23/18at 14:19; Start 08/22/18 at 18:00; Stop at 16:38; Status DC Vancomycin HCl 1.75 gm/Sodium Chloride 500 ml @ 250 mls/hr 1X ONCE IV Last administered on 08/22/18at 19:46; Start 08/22/18 at 18:30; Stop 08/22/18 at 20:29 ; Status DC Acetaminophen (Tylenol) 500 mg PRN Q6HRS PRN PO MILD PAIN / TEMP Last administered on 08/25/18at 19:43; Start 08/22/18 at 18:45 Acetaminophen/ Codeine Phosphate (Tylenol #3) 1 tab PRN Q6HRS PRN PO MODERATE TO SEVERE PAIN; Start 08/22/18 at 18:45 Ondansetron HCl (Zofran) 4 mg PRN Q6HRS PRN IV NAUSEA/VOMITING; Start 08/22/18 at 18:45 Ondansetron HCl (Zofran Odt) 4 mg PRN Q6HRS PRN PO NAUSEA/VOMITING; Start 08/22 at 18:45 Temazepam (Restoril) 7.5 mg PRN QHS PRN PO INSOMNIA; Start 08/22/18 at 18:45 Sodium Chloride 1,000 ml @ 100 mls/hr 1X ONCE IV Last administered on at 22:38; Start 08/22/18 at 19:00; Stop 08/23/18 at 04:59; Status DC Guaifenesin (Robitussin Dm) 10 ml PRN Q6HRS PRN PO COUGH; Start 08/22/18 at 18: 45 Acetaminophen (Tylenol) 650 mg PRN Q6HRS PRN PO MILD PAIN / TEMP; Start at 17:00; Status UNV Nicotine (Nicoderm Cq 21mg) 1 patch PRN DAILY PRN TD SMOKING CESSATION; Start 08/22/18 at 19:15 Acetaminophen (Tylenol) 650 mg 1X ONCE PO Last administered on 08/22/18at 17:00 ; Start 08/22/18 at 19:30; Stop 08/22/18 at 19:31; Status DC Sodium Chloride 1,000 ml @ 1,000 mls/hr 1X ONCE IV Last administered on at 22:39; Start 08/22/18 at 21:00; Stop 08/22/18 at 21:59; Status DC Vancomycin HCl 1.25 gm/Sodium Chloride 250 ml @ 167 mls/hr Q12H IV Last administered on 08/25/18at 20:34; Start 08/23/18 at 08:00; Stop 08/26/18 at 09:11 ; Status DC Vancomycin HCl (Vancomycin Trough Level) 1 each 1X ONCE MC Last administered on 08/24/18at 07:30; Start 08/24/18 at 07:30; Stop 08/24/18 at 07:31; Status DC Potassium Chloride (Klor-Con) 40 meq 1X ONCE PO Last administered on at 18:18; Start 08/23/18 at 16:00; Stop 08/23/18 at 16:01; Status DC Piperacillin Sod/ Tazobactam Sod 4.5 gm/Sodium Chloride 100 ml @ 200 mls/hr Q6HRS IV Last administered on 08/26/18at 06:32; Start 08/23/18 at 18:00; Stop at 09:11; Status DC Lactobacillus Rhamnosus (Culturelle) 1 cap BID PO Last administered on at 08:31; Start 08/23/18 at 21:00 Ringer's Solution 1,000 ml @ 50 mls/hr Q20H IV Last administered on 08/24/18at 11:41; Start 08/24/18 at 07:00; Stop 08/24/18 at 18:59; Status DC Potassium Chloride (Klor-Con) 40 meq 1X ONCE PO ; Start 08/24/18 at 08:30; Stop 08/24/18 at 08:31; Status Cancel Lidocaine HCl (Lidocaine 2% Viscous) 100 ml PRN 1X PRN MM MOUTH PAIN Last administered on 08/24/18at 11:30; Start 08/24/18 at 11:00; Stop 08/25/18 at 10:59 ; Status DC Lidocaine HCl (Lidocaine 1% 20ml Vial) 20 ml PRN 1X PRN INJ SEE COMMENTS Last administered on 08/24/18at 11:31; Start 08/24/18 at 11:00; Stop 08/25/18 at 10:59 ; Status DC Epinephrine HCl (Adrenalin) 1 mg PRN 1X PRN INJ SEE COMMENTS Last administered on 08/24/18at 12:46; Start 08/24/18 at 11:00; Stop 08/25/18 at 10:59; Status DC Lidocaine HCl 50 ml PRN 1X PRN MM SEE COMMENTS Last administered on 08/24/18at 11:30; Start 08/24/18 at 11:00; Stop 08/25/18 at 10:59; Status DC Epinephrine HCl (Adrenalin) 1 mg STK-MED ONCE .ROUTE ; Start 08/24/18 at 11:13; Stop 08/24/18 at 11:14; Status DC Lidocaine HCl (Lidocaine 1% 20ml Vial) 20 ml STK-MED ONCE .ROUTE ; Start at 11:13; Stop 08/24/18 at 11:14; Status DC Lidocaine HCl (Lidocaine 2% Viscous) 100 ml STK-MED ONCE .ROUTE ; Start at 11:13; Stop 08/24/18 at 11:14; Status DC Lidocaine HCl 50 ml STK-MED ONCE .ROUTE ; Start 08/24/18 at 11:13; Stop at 11:15; Status DC Propofol 20 ml @ As Directed STK-MED ONCE IV ; Start 08/24/18 at 12:06; Stop at 12:07; Status DC Epinephrine HCl (Adrenalin) 1 mg STK-MED ONCE .ROUTE ; Start 08/24/18 at 12:20; Stop 08/24/18 at 12:21; Status DC Potassium Chloride (Klor-Con) 40 meq 1X ONCE PO Last administered on at 20:06; Start 08/24/18 at 19:00; Stop 08/24/18 at 19:01; Status DC Amoxicillin/ Clavulanate Potassium (Augmentin 875/ 125mg) 1 tab BID PO Last administered on 08/27/18at 08:31; Start 08/26/18 at 21:00 Gadobutrol (Gadavist) 7 mmol 1X ONCE IV Last administered on 08/26/18at 15:39; Start 08/26/18 at 15:30; Stop 08/26/18 at 15:31; Status DC Vitals/I & O Vital Sign - Last 24 Hours 08/26/18 08/26/18 08/26/18 08/26/18 12:41 14:57 19:00 19:30 Temp 98.5 100.2 98.5 100.2 Pulse 78 77 Resp 20 20 B/P (MAP) 125/85 (98) 133/62 (85) Pulse Ox 96 95 93 O2 Delivery Nasal Cannula Nasal Cannula Nasal Cannula Room Air O2 Flow Rate 1.0 2.0 2.0 1.0 08/26/18 08/26/18 08/27/18 08/27/18 20:00 23:00 00:08 03:00 Temp 99.7 98.7 99.7 98.7 Pulse 85 82 Resp 20 20 B/P (MAP) 130/63 (85) 128/64 (85) Pulse Ox 94 93 O2 Delivery Nasal Cannula Nasal Cannula Nasal Cannula Nasal Cannula O2 Flow Rate 1.0 2.0 2.0 2.0 08/27/18 08/27/18 08/27/18 08/27/18 07:00 07:45 08:00 11:00 Temp 98.1 98.7 98.1 98.7 Pulse 71 73 Resp 20 20 B/P (MAP) 123/56 (78) 126/66 (86) Pulse Ox 96 97 95 O2 Delivery Nasal Cannula Nasal Cannula Nasal Cannula Nasal Cannula O2 Flow Rate 2.0 2.0 2.0 2.0 Intake and Output 08/26/18 08/26/18 08/27/18 15:00 23:00 07:00 Intake Total 360 ml 360 ml 100 ml Output Total 600 ml Balance 360 ml -240 ml 100 ml Nutrition Consultation Dietary Evaluation: Recommendations by RD: Increase Calorie Intake, Protein supplementation Comments: liberlize diet to regular chocolate ensure pudding bid Expected Outcomes/Goals: to meet > 75% est nutr needs Interpretation of weight loss: >7.5% in 3 months Malnutrition Findings: Food and Nutrition Intake (Sev: <50% est energy req 5days Weight Status: Appropriate ANDRÉS FARAH III DO Aug 27, 2018 11:29
--- NOTE | 2018-08-27 11:32 | PDOC ---
PULMONARY PROGRESS NOTES Subjective no soa Vitals Vital Signs Date Time Temp Pulse Resp B/P (MAP) Pulse Ox O2 Delivery O2 Flow Rate FiO2 08/27/18 11:00 98.7 73 20 126/66 (86) 95 Nasal Cannula 2.0 98.7 General: Alert, No acute distress Lungs: Other (DECREASE ON RIGHT) Cardiovascular: S1 Abdomen: Soft Neuro Exam: Alert Extremities: No Edema Skin: Warm Labs Laboratory Tests Test 08/26/18 04:00 08/27/18 03:30 White Blood Count 12.8 x10^3/uL (4.0-11.0) 12.9 x10^3/uL (4.0-11.0) Red Blood Count 3.74 x10^6/uL (4.30-5.70) 3.50 x10^6/uL (4.30-5.70) Hemoglobin 9.2 g/dL (13.0-17.5) 8.7 g/dL (13.0-17.5) Hematocrit 30.1 % (39.0-53.0) 28.1 % (39.0-53.0) Mean Corpuscular Volume 81 fL (79-100) 80 fL (79-100) Mean Corpuscular Hemoglobin 25 pg (25-35) 25 pg (25-35) Mean Corpuscular Hemoglobin Concent 31 g/dL (31-37) 31 g/dL (31-37) Red Cell Distribution Width 15.4 % (11.5-14.5) 15.9 % (11.5-14.5) Platelet Count 383 x10^3/uL (140-400) 390 x10^3/uL (140-400) Neutrophils (%) (Auto) 79 % (31-73) 80 % (31-73) Lymphocytes (%) (Auto) 10 % (24-48) 10 % (24-48) Monocytes (%) (Auto) 7 % (0-9) 7 % (0-9) Eosinophils (%) (Auto) 3 % (0-3) 2 % (0-3) Basophils (%) (Auto) 1 % (0-3) 1 % (0-3) Neutrophils # (Auto) 10.1 x10^3uL (1.8-7.7) 10.3 x10^3uL (1.8-7.7) Lymphocytes # (Auto) 1.3 x10^3/uL (1.0-4.8) 1.3 x10^3/uL (1.0-4.8) Monocytes # (Auto) 0.9 x10^3/uL (0.0-1.1) 0.9 x10^3/uL (0.0-1.1) Eosinophils # (Auto) 0.3 x10^3/uL (0.0-0.7) 0.3 x10^3/uL (0.0-0.7) Basophils # (Auto) 0.1 x10^3/uL (0.0-0.2) 0.1 x10^3/uL (0.0-0.2) Reticulocyte Count (auto) 1.2 % (0.5-2.5) Sodium Level 145 mmol/L (136-145) 142 mmol/L (136-145) Potassium Level 3.5 mmol/L (3.5-5.1) 3.2 mmol/L (3.5-5.1) Chloride Level 107 mmol/L (98-107) 106 mmol/L (98-107) Carbon Dioxide Level 28 mmol/L (21-32) 27 mmol/L (21-32) Anion Gap 10 (6-14) 9 (6-14) Blood Urea Nitrogen 4 mg/dL (8-26) 5 mg/dL (8-26) Creatinine 1.3 mg/dL (0.7-1.3) 1.6 mg/dL (0.7-1.3) Estimated GFR (Cockcroft-Gault) 54.9 43.2 BUN/Creatinine Ratio 3 (6-20) 3 (6-20) Glucose Level 94 mg/dL (70-99) 105 mg/dL (70-99) Calcium Level 10.0 mg/dL (8.5-10.1) 10.4 mg/dL (8.5-10.1) Ferritin 856 ng/mL (26-388) Total Bilirubin 0.5 mg/dL (0.2-1.0) 0.3 mg/dL (0.2-1.0) Aspartate Amino Transf (AST/SGOT) 17 U/L (15-37) 15 U/L (15-37) Alanine Aminotransferase (ALT/SGPT) 15 U/L (16-63) 18 U/L (16-63) Alkaline Phosphatase 60 U/L (46-116) 55 U/L (46-116) Total Protein 7.4 g/dL (6.4-8.2) 7.2 g/dL (6.4-8.2) Albumin 1.8 g/dL (3.4-5.0) 1.8 g/dL (3.4-5.0) Albumin/Globulin Ratio 0.3 (1.0-1.7) 0.3 (1.0-1.7) Vitamin B12 Level 504 pg/mL (247-911) Laboratory Tests Test 08/27/18 03:30 White Blood Count 12.9 x10^3/uL (4.0-11.0) Red Blood Count 3.50 x10^6/uL (4.30-5.70) Hemoglobin 8.7 g/dL (13.0-17.5) Hematocrit 28.1 % (39.0-53.0) Mean Corpuscular Volume 80 fL (79-100) Mean Corpuscular Hemoglobin 25 pg (25-35) Mean Corpuscular Hemoglobin Concent 31 g/dL (31-37) Red Cell Distribution Width 15.9 % (11.5-14.5) Platelet Count 390 x10^3/uL (140-400) Neutrophils (%) (Auto) 80 % (31-73) Lymphocytes (%) (Auto) 10 % (24-48) Monocytes (%) (Auto) 7 % (0-9) Eosinophils (%) (Auto) 2 % (0-3) Basophils (%) (Auto) 1 % (0-3) Neutrophils # (Auto) 10.3 x10^3uL (1.8-7.7) Lymphocytes # (Auto) 1.3 x10^3/uL (1.0-4.8) Monocytes # (Auto) 0.9 x10^3/uL (0.0-1.1) Eosinophils # (Auto) 0.3 x10^3/uL (0.0-0.7) Basophils # (Auto) 0.1 x10^3/uL (0.0-0.2) Sodium Level 142 mmol/L (136-145) Potassium Level 3.2 mmol/L (3.5-5.1) Chloride Level 106 mmol/L (98-107) Carbon Dioxide Level 27 mmol/L (21-32) Anion Gap 9 (6-14) Blood Urea Nitrogen 5 mg/dL (8-26) Creatinine 1.6 mg/dL (0.7-1.3) Estimated GFR (Cockcroft-Gault) 43.2 BUN/Creatinine Ratio 3 (6-20) Glucose Level 105 mg/dL (70-99) Calcium Level 10.4 mg/dL (8.5-10.1) Total Bilirubin 0.3 mg/dL (0.2-1.0) Aspartate Amino Transf (AST/SGOT) 15 U/L (15-37) Alanine Aminotransferase (ALT/SGPT) 18 U/L (16-63) Alkaline Phosphatase 55 U/L (46-116) Total Protein 7.2 g/dL (6.4-8.2) Albumin 1.8 g/dL (3.4-5.0) Albumin/Globulin Ratio 0.3 (1.0-1.7) Impression . 1. A 68-year-old with hemoptysis, 35-pound weight loss and highly abnormal CT chest with cavitary pneumonia in the right upper lobe and extensive parenchymal infiltrate in the right lower lobe. He has post-obstructive pneumonia and large endobronchial obstruction in the right main stem. 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 Suspect underlying chronic obstructive pulmonary disease, could be severe. He smoked for 51 years. 3. A 35-pound weight loss, due to malignancy Plan . 1. s/p bronchoscopy; totally occluding endobronchial mass right main stem/ galen pus seen from a tiny opening/ bx c/w Sq. cell 2. Continue present antibiotics.PO augmentin. BAL with yeast, contamination. sputum results reviewed 3. off isolation for TB. 4. consulted medical and Radiation Oncology. 5. PFTs at some point as OP 6. Continue bronchodilators. 7. Discussed with . PET/ MRI as OP and XRT soon dc home / F/U WITH ME IN OCTOBER ANKIT BONILLA MD Aug 27, 2018 11:32
[2018-08-27] MEDS ORDERED: POTASSIUM CHLORIDE 20 MEQ TABLET.ER. PO ONE (12:00)
--- NOTE | 2018-08-27 12:15 | DS ---
DATE OF DISCHARGE: 08/27/2018 ADMISSION DIAGNOSES: Pulmonary lesion and respiratory failure. DISCHARGE DIAGNOSIS: Lung cancer. HOSPITAL COURSE: The patient is a pleasant 68-year-old male presented with pulmonary lesion. He was short of breath. He was coughing. We admitted him and gave him IV antibiotics, breathing treatments, oxygen. We consulted Pulmonary. He went for a biopsy. I talked to the pathologist it is consistent with squamous cell carcinoma. The patient is going to go home and eventually going to receive radiation therapy and chemo. DISPOSITION: Home. ACTIVITY: As tolerated. DIET: Low sodium. MEDICATIONS: Please see MRAD. TOTAL TIME: 32 minutes. ANDRÉS FARAH DO DR: LICHA/alice JOB#: [id number] / [id number]
[2018-08-27] MEDS ORDERED: AMOX1TAB61 PO (12:44)
--- NOTE | 2018-08-27 13:32 | NUR ---
Discharge instructions and prescription reviewed with patient, he verb. understanding all instructions and denies questions. Patient ready for discharge when ride arrives.
--- NOTE | 2018-08-27 14:45 | NUR ---
Patient discharge to home with family with all instructions, prescription and belongings.
[2018-09-20] MEDS ORDERED: ONDA8TAB9 PO (14:19)
[2018-09-20] MEDS ORDERED: carboplatin IV (14:19)
[2018-09-20] MEDS ORDERED: PACL6VIA IV (14:19)
== END 2018-08-27 14:45 | disposition home or self-care (01) | DRG 871 ==
LOC: ER 15:34 → 5 NORTH 17:50
PROVIDERS: ADMIT Internal Medicine; ATTEND Internal Medicine
PROC: 0B938ZZ Drainage of Right Main Bronchus, Via Natural or Artificial Opening Endoscopic (ICD-10-PCS; 2018-08-24)
PROC: 0BB38ZX Excision of Right Main Bronchus, Via Natural or Artificial Opening Endoscopic, Diagnostic (ICD-10-PCS; principal; 2018-08-24 12:00)
DX: A41.9 Sepsis, unspecified organism (principal); J18.8 Other pneumonia, unspecified organism; E43 Unspecified severe protein-calorie malnutrition; J96.90 Respiratory failure, unspecified, unspecified whether with hypoxia or hypercapnia; C34.11 Malignant neoplasm of upper lobe, right bronchus or lung; J44.1 Chronic obstructive pulmonary disease with (acute) exacerbation; J44.0 Chronic obstructive pulmonary disease with (acute) lower respiratory infection; J98.11 Atelectasis; F17.210 Nicotine dependence, cigarettes, uncomplicated; D63.0 Anemia in neoplastic disease; Z80.1 Family history of malignant neoplasm of trachea, bronchus and lung; Z85.118 Personal history of other malignant neoplasm of bronchus and lung; Z68.22 Body mass index [BMI] 22.0-22.9, adult
CPT/HCPCS: 31622; 36415; 70553; 71046; 71275; 80048; 80053; 80202; 82553; 82607; 82728; 83540; 83550; 83605; 83880; 84145; 84484; 85025; 85045; 85610; 86481; 87015; 87040; 87070; 87102; 87116; 87205; 87804; 88112; 88305; 93005; 94640; 94760; 96361; 96365; A9585; J0171; J2543; J2704; J3370; J7030; J7040; J7050; J7120; J7620; Q9967; 99285-25

== ENCOUNTER → 2018-09-02 | Outpatient (CLI) | payer MEDICARE ==
[2018-08-27 11:00] VITALS: BP 126/66
[~2018-09-02] MED LIST: AMOX1TAB61 PO; ONDA8TAB9 PO; PACL6VIA IV; carboplatin IV
--- NOTE | 2018-09-02 13:51 | RAD ---
FDG tumor localization scan, PET/CT, 09/02/2018: History: Staging lung cancer Following IV injection of 13.7 mCi of 18 F-FDG, imaging was performed from the skull base to the proximal thighs. The noncontrast CT component was performed for attenuation correction and anatomic localization purposes rather than for primary diagnosis. The patient's blood glucose level at time injection was 190 MG/DL. There are extensive hypermetabolic foci in the right lung. There is a dominant cavitary appearing mass in the right upper lobe which measures approximate 9 cm in diameter. It demonstrates a hypermetabolic rim with a maximum SUV of nearly 20. The medial aspect of this mass involves the right hilum and extends to the level where there is occlusion of the right main bronchus. There are multiple other separate scattered hypermetabolic foci in the right lung which correspond predominantly to irregularly marginated pulmonary opacities. The appearance suggests lymphangitic spread of tumor and/or infection. These densities are most prominent in the right lung base and demonstrate a maximum SUV in the 10-11 range. In the right lower chest some of these densities may be pleural-based. There is a small amount of right-sided pleural fluid. There is an enlarged 18 mm right paratracheal lymph node which is hypermetabolic with a maximum SUV of 5.8. There are also small hypermetabolic foci in the subcarinal region suggesting adenopathy. No hypermetabolic left lung lesion is seen. The CT component does demonstrate several faint scattered nonspecific groundglass opacities in the left lung. Physiologic activity is evident in the neck. No hypermetabolic neck mass is seen. Normal GI tract and urinary tract activity is present in the abdomen and pelvis. No hypermetabolic abdominal or pelvic lesion is seen. Incidental CT findings include the presence of a small nodule with rim-like calcification the left adrenal gland. This is not hypermetabolic and is of doubtful significance. Moderate coronary artery calcifications are present. IMPRESSION: 1. Large cavitary right upper lobe pulmonary mass extending to the right hilum compatible with a primary lung malignancy. 2. Additional moderate patchy hypermetabolic foci in the right lung suggesting lymphangitic spread of tumor and/or infection. 3. Mild mediastinal adenopathy likely on a metastatic basis. 4. Small right pleural effusion.
== END | disposition home or self-care (01) ==
LOC: PETSC 10:31
PROVIDERS: ATTEND Radiology Radiation Oncology
DX: C34.11 Malignant neoplasm of upper lobe, right bronchus or lung (principal); J90 Pleural effusion, not elsewhere classified; R59.0 Localized enlarged lymph nodes
CPT/HCPCS: 78815; A9552

== ENCOUNTER → 2018-10-27 | Outpatient (CLI) | payer MEDICARE ==
[~2018-10-27] MED LIST changes: +CONTRAST GIVEN. MC PRN; +IOHEXOL 240 MG/ML 50ML VIAL. PO ONE; +IOHEXOL 300 MG/ML 100ML VIAL. IV ONE
--- NOTE | 2018-10-27 10:04 | RAD ---
CT CHEST ABD PELVIS W/CONTRAST Indication: Right upper lobe cancer Technique: Postcontrast CT imaging was performed of the chest, abdomen, pelvis, multiplanar reconstruction images submitted. Oral contrast was also given. One or more of the following individualized dose reduction techniques were utilized for this examination: 1. Automated exposure control 2. Adjustment of the mA and/or kV according to patient size 3. Use of iterative reconstruction technique. Comparison: PET CT September 02, 2018; CTA chest August 22, 2018 CHEST: Findings: There is some residual more reticular appearing density of the right lower lobe although significant improved aeration. There are also some residual foci of nodularity of the right lower lobe, dominant right lower lobe nodule image 30 series 2 about 1.3 cm AP by 1.1 cm transverse versus previously about 1.4 cm AP by 1.5 cm transverse. There is no significant residual nodularity or infiltrate of the left lower lobe. However there are new foci of nodular appearing density of the left upper lobe, largest of these image 36 series 2 about 2.3 cm transverse by 2.1 cm AP, other smaller foci as seen on images 23 and 36. There is again large cavitary lesion of the anterior aspect of the right hemithorax in region of the right upper and right middle lobes, now a greater cavitary component, degree of associated soft tissue density overall decreased. There is again volume loss of the right hemithorax. There is again truncation of the right middle lobe bronchus. Previously seen abnormal density in the right mainstem bronchus has significantly decreased, mild residual at the periphery. Right upper lobe bronchus is again not seen. Previously seen right pretracheal node now measures about 0.8 cm short axis dimension versus previously about 1.7 cm. Erin mass anterior to the right mainstem bronchus measures about 1.4 cm short axis dimension, previously about 2.2 cm in the same plane. Subcarinal erin mass about 1.2 cm short axis dimension previously measured 1.7 cm. There is again soft tissue density mass extending to the right perihilar region overall decreased. There is coronary calcification. There is no pericardial or pleural fluid or pneumothorax. There is scattered plaque of the thoracic aorta. Thoracic vertebral body stature is unchanged, again T12 compression deformity superiorly. 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 There is degree of variable multilevel thoracic neural foramina compromise due to facet degenerative change. IMPRESSION: 1. There is now greater cavitary component of the previously seen lesion of the inferior right hemithorax with overall decreased soft tissue density including decreased right perihilar soft tissue mass, decreased right lower lobe infiltrate, as well as decreased lymphadenopathy. Previously seen mass in the right mainstem bronchus has also significantly decreased. Previously seen nodular density left lower lobe has also resolved. However there are new foci of abnormal nonspecific nodularity of the left upper lobe with the largest up to 2.3 cm, concerning for new metastatic nodules although possibly could be due to sequela of infection. 2. There is coronary calcification. Abdomen pelvis: FINDINGS: No new focal abnormality is identified of the liver, spleen, pancreas. Gallbladder is present without obvious intraluminal abnormality by CT. Both kidneys enhance, no hydronephrosis. There is 1.8 cm hypodense lesion of the mid left kidney, likely cyst with density measurements 19 Hounsfield units. There is again peripherally calcified mass of the left adrenal gland up to about 3.3 cm AP by 2.6 cm transverse. There is no new abnormal right adrenal nodularity. No new significant lymphadenopathy is identified of the abdomen. There is scattered plaque of the abdominal aorta, also near the origins of the celiac and superior mesenteric arteries as well as renal arteries without significant focal stenosis identified. There is a greater degree of noncalcified plaque of the distal abdominal aorta which is slightly dilated about 3.2 cm. Bowel is not significantly dilated. There is no free fluid or free air. Normal caliber appendix is visualized. There is again possible small periumbilical fat-containing hernia as more protuberant fat underlying skin surface on the right in this region about 1.4 cm transverse although the site of herniation difficult to confidently identify, questionably seen on image 50. There is multilevel facet degenerative change. There is degenerative disc disease greatest L4-5 and L5-S1. There is some variable lumbar neural foramina compromise greatest on the left at L5-S1 and on the right at L2-3 and L4-5. IMPRESSION: 1. There is no new CT evidence of metastatic disease to the abdomen or pelvis. 2. There is again peripherally calcified lesion of the left adrenal gland could be due to sequela of previous infection or hemorrhage. 3. There is again mild aneurysmal dilatation of the distal abdominal aorta about 3.2 cm. Electronically signed by: Kenrick Sierra MD (10/27/2018 10:01 AM) [id number]
== END | disposition home or self-care (01) ==
LOC: CT 07:41
PROVIDERS: ATTEND Internal Medicine Hematology & Oncology
DX: C34.11 Malignant neoplasm of upper lobe, right bronchus or lung (principal); I25.10 Atherosclerotic heart disease of native coronary artery without angina pectoris; I70.0 Atherosclerosis of aorta; R91.8 Other nonspecific abnormal finding of lung field; E27.8 Other specified disorders of adrenal gland; I71.4 Abdominal aortic aneurysm, without rupture; M43.8X4 Other specified deforming dorsopathies, thoracic region; M51.37 Other intervertebral disc degeneration, lumbosacral region
CPT/HCPCS: 71260; 74177; Q9967